=== PATIENT | male | born 1950 | race Caucasian/White ===

== ENCOUNTER 2020-09-10 08:16 | Outpatient (CLI) | payer OTHER, SELFPAY ==
[2020-09-10 09:24] LABS: Add Urine Microscopic? YES; Appearance Urine Clear (Clear); Bacteria Urine Trace /hpf; Bilirubin Urine Negative (Negative); Blood Urine Negative (Negative); Color Urine Yellow (Yellow); Glucose Urine UA Negative (Negative); Hyaline Casts Urine 20-29 /lpf; Ketones Urine Negative (Negative); Leukocyte Esterase Ur 1+ LEU/UL (Negative); Mucus Urine Rare /lpf; Nitrate Urine Negative (Negative); Protein Urine 2+ mg/dL (Negative); Specific Grav Ur 1.026 (1.001-1.035); Squamous Epithelial Cell Urine Moderate /hpf (Few)
[2020-09-10 09:33] LABS: Total Triiodothyronine (T3) 1.34 NG/ML (0.97-1.69)
[2020-09-10 09:47] LABS: Free T4 Free Thyroxine 0.78 ng/mL (0.78-2.19)
== END 2020-09-10 08:17 | disposition home or self-care (01) ==
PROVIDERS: PCP Family Medicine; Visit Provider Physician Assistant
DX: R79.89 Other specified abnormal findings of blood chemistry (principal); E03.9 Hypothyroidism, unspecified; R30.0 Dysuria
CPT/HCPCS: 36415; 81001; 84439; 84443; 84480; 87077; 87086; 87088

== ENCOUNTER 2020-09-27 10:34 | Outpatient (CLI) | payer OTHER, MEDICARE, SELFPAY | END 2020-09-27 10:35 | disposition home or self-care (01) | LOC: ANHCOVIDVC 10:34 | PROVIDERS: PCP Family Medicine | DX: Z23 Encounter for immunization (principal) | CPT/HCPCS: 0001A; 91300 ==

== ENCOUNTER 2020-10-18 10:28 | Outpatient (CLI) | payer OTHER, MEDICARE, SELFPAY | END 2020-10-18 10:29 | disposition home or self-care (01) | LOC: ANHCOVIDVC 10:29 | PROVIDERS: PCP Family Medicine | DX: Z23 Encounter for immunization (principal) | CPT/HCPCS: 0002A; 91300 ==

== ENCOUNTER 2020-11-26 12:05 | Outpatient (CLI) | payer OTHER, SELFPAY ==
[2020-11-27 14:27] LABS: Total Triiodothyronine (T3) 1.29 NG/ML (0.97-1.69)
== END 2020-11-26 12:06 | disposition home or self-care (01) ==
PROVIDERS: PCP Family Medicine; Visit Provider Physician Assistant
DX: E03.9 Hypothyroidism, unspecified (principal)
CPT/HCPCS: 36415; 84439; 84443; 84480

== ENCOUNTER 2021-04-11 11:53 | Outpatient (CLI) | payer OTHER, SELFPAY ==
[2021-04-11 12:09] LABS: Basophils Percent Auto 0.3 % (0.2-1.2); Eosinophils Absolute Auto 0.2 K/mm3 (0-0.3); Eosinophils Percent Auto 1.4 % (0-4.4); Hemoglobin 13.1 g/dL (14.0-18.0); Immature Granulocyte Absolute 0.04 K/mm3 (0.00-0.031); Immature Granulocyte Percent A 0.3 % (0-0.5); Lymphocytes Percent Auto 23.5 % (18.3-44.2); Mean Corpuscular HGB Conc 35.4 g/dl (32-36); Mean Corpuscular Hemoglobin 33.9 pg (26-34); Mean Corpuscular Volume 95.6 fl (80-100); Mean Platelet Volume 8.7 fl (7.4-10.4); Monocytes Absolute Auto 0.6 K/mm3 (0.1-0.6); Monocytes Percent Auto 5.5 % (2.6-8.5); Neutrophils Absolute Auto 7.9 K/mm3 (1.3-6.7); Platelet Count Result 194 k/mm3 (150-375); Red Blood Count 3.87 M/mm3 (4.6-6.20); Red Cell Distribution Width 13.2 % (11.5-14.5); White Blood Count 11.5 K/mm3 (4.5-10.0)
[2021-04-11 12:22] LABS: Alanine Aminotransferase 18 U/L (4-50); Albumin Level 4.4 g/dL (3.5-5.1); Alkaline Phosphatase 178 U/L (38-126); Anion Gap 13 mmol/L (8-16); Aspartate Amino Transferase 27 U/L (17-59); Bilirubin,Total 0.6 mg/dL (0.2-1.3); Blood Urea Nitrogen 10 mg/dL (9-20); Calcium 8.5 mg/dL (8.4-10.2); Carbon Dioxide 21 mmol/L (22-30); Chloride 102 mmol/L (98-107); Cholesterol 147 mg/dL (0-200); Estimated Glomerular Filt Rate > 60; Glucose 99 mg/dL (65-110); HDL Direct 40 mg/dL; Potassium 4.2 mmol/L (3.4-5.0); Sodium 136 mmol/L (137-145); Triglycerides 87 mg/dL (<150)
[2021-04-11 12:33] LABS: LDL Cholesterol Direct 87 mg/dL
[2021-04-11 12:53] LABS: Total Triiodothyronine (T3) 1.32 NG/ML (0.97-1.69)
[2021-04-11 13:34] LABS: Free T4 Free Thyroxine 1.32 ng/mL (0.78-2.19)
[2021-04-17 15:17] LABS: Vitamin D 1,25 (OH)2 Total 19 pg/mL (18-72); Vitamin D2 1,25 (OH)2 <8 pg/mL; Vitamin D3 1,25 (OH)2 19 pg/mL
== END 2021-04-11 11:54 | disposition home or self-care (01) ==
PROVIDERS: PCP Family Medicine; Visit Provider Physician Assistant
DX: E03.9 Hypothyroidism, unspecified (principal); E55.9 Vitamin D deficiency, unspecified; Z13.220 Encounter for screening for lipoid disorders; R03.0 Elevated blood-pressure reading, without diagnosis of hypertension
CPT/HCPCS: 36415; 80053; 80061; 82652; 84439; 84443; 84480; 85025

== ENCOUNTER 2021-05-09 11:19 | Outpatient (CLI) | payer OTHER, SELFPAY ==
--- NOTE | ~2021-05-09 | XR_ITS ---
EXAMINATION: XR chest 2V DATE: 05/09/2021 11:40 INDICATION: Personal history of nicotine dependence. Shortness of breath. TECHNIQUE: Frontal and lateral views of the chest were obtained. COMPARISON: None. FINDINGS: There are airspace opacities in the upper lung zones. No pleural effusion or pneumothorax. The heart size is normal. IMPRESSION: 1. Symmetric airspace opacities in the upper lung zones, most likely granulomatous disease. Consider noncontrast chest CT. Reviewed, dictated and finalized at location A. IMPRESSION: 1. Symmetric airspace opacities in the upper lung zones, most likely granulomat ous disease. Consider noncontrast chest CT.
== END 2021-05-09 11:20 | disposition home or self-care (01) ==
LOC: ANHIMG 11:22
PROVIDERS: PCP Family Medicine; Visit Provider Family Medicine
DX: R06.02 Shortness of breath (principal); Z87.891 Personal history of nicotine dependence; R91.8 Other nonspecific abnormal finding of lung field
CPT/HCPCS: 71046

== ENCOUNTER 2021-05-26 13:32 | Outpatient (CLI) | payer OTHER, SELFPAY ==
--- NOTE | ~2021-05-26 | CT_ITS ---
EXAMINATION: CT diagnostic chest wo con EXAM DATE: 05/26/2021 14:13 INDICATION: R93.89 - Abnormal findings on diagnostic imaging of other... Shortness of breath. TECHNIQUE: Spiral CT of the chest without contrast. Axial, coronal and sagittal images of the chest were reviewed. Coronal maximum intensity pixel images of chest reviewed. The dose-length product ( DLP) for this examination was 274.81 mGy-cm. The exposure was tailored according to patient size (au to mA exposure control), and iterative reconstruction (ASIR) was used as additional dose reduction te chnique. Correlation is made to chest x-ray 05/09/2021. FINDINGS: Biapical peripheral opacities, appearance consistent with chronic postinfectious residua. There are several known peripheral left upper lobe nodules up to about 6 mm also most likely postinfe ctious but optional one-year follow-up chest CT could be obtained. There is mild emphysema and hyperi nflation. No suspicious pulmonary nodules. There are no pleural or pericardial effusions. Tracheobronchial tree is patent. There is no med iastinal, hilar or axillary lymphadenopathy. There is no pneumothorax. Heart normal in size. Th ere is mild coronary arterial calcification, arterial sclerosis. Upper abdomen is unremarkable. Kwadwo kenney has diffuse idiopathic skeletal hyperostosis (DISH). IMPRESSION: 1. Biapical scarring. Couple of left upper lobe nodules probably postinfectious as well. Optional on e-year follow-up chest CT. 2. Mild emphysema and hyperinflation. Reviewed, dictated and finalized at location D. GER SOCIAL IMPRESSION: 1. Biapical scarring. Couple of left upper lobe nodules probably postinfectiou s as well. Optional one-year follow-up chest CT. 2. Mild emphysema and hyperinflation.
== END 2021-05-26 13:33 | disposition home or self-care (01) ==
PROVIDERS: PCP Family Medicine; Visit Provider Nurse Practitioner Gerontology
DX: R06.2 Wheezing (principal); R93.89 Abnormal findings on diagnostic imaging of other specified body structures; J43.9 Emphysema, unspecified
CPT/HCPCS: 71250

== ENCOUNTER 2021-06-09 10:01 | Outpatient (CLI) | payer OTHER, SELFPAY ==
--- NOTE | 2021-06-10 08:43 | WPDPFTINT ---
PFT Procedure Performed PFT Procedure Performed Spirometry with Pre/Post Bronchodilator Plethysmography (Lung Vol) Diffusing Cap (DLCO) Flow Vol Loop PFT Interpretation Lung volumes were measured with the body plethysmography method. Lung volumes are unremarkable. Spirometry showed diminished expiratory flow rates and a normal FEV1 to FVC ratio of 78%. Following administration of a bronchodilator there was no significant increase in the expiratory flow rates. Lung diffusion capacity is moderately reduced at 51% predicted. The flow volume loop is unremarkable. Impression: Nonspecific pattern. Moderately reduced lung diffusion capacity.
== END 2021-06-09 10:02 | disposition home or self-care (01) ==
PROVIDERS: PCP Family Medicine; Visit Provider Family Medicine
DX: R06.02 Shortness of breath (principal); Z87.891 Personal history of nicotine dependence; R91.8 Other nonspecific abnormal finding of lung field
CPT/HCPCS: 94060; 94726; 94729

== ENCOUNTER 2021-08-18 00:11 | Day surgery (SDC) | payer MEDICARE, SELFPAY ==
[2021-08-06 15:06] VITALS: BMI 29.3
[2021-08-18 10:32] VITALS: BP 139/88; PULSE 103; RESP 18; TEMP 36.5; O2SAT 99
[2021-08-18] MEDS: LACTATED RINGERS 1,000 ML 150 ML IV CONT (10:35)
--- NOTE | 2021-08-18 11:12 | WPDANESEPPF ---
Anes - Initial Pre Proc Eval Procedure: Operation Date: 08/18/21 11:30 Proposed Procedures p Colonoscopy - Remy See MD Date/Time: 08/18/21 11:12 Surgeon: Remy See MD Pre Op Diagnosis: positive cologuard Patient Data Age: 70 Gender: M Height: 1.73 m Weight: 81.3 kg Last Vital Signs Temp 36.5 C 08/18/21 10:32 Pulse 103 H 08/18/21 10:32 Resp 18 08/18/21 10:32 BP 139/88 08/18/21 10:32 Pulse Ox 99 08/18/21 10:32 Allergies Allergy/AdvReac Type Severity Reaction Status Date / Time No Known Allergies Allergy Verified 08/18/21 10:31 Home Medications Medication Instructions Recorded Confirmed Type fluticasone fur. 100 mcg-umeclid 1 inh INHALATION DAILY #60 ea 08/04/21 08/06/21 Rx 62.5 mcg-vilant 25 mcg inhalat.powder lisinopril 5 mg tablet 5 mg PO DAILY #90 tablet 08/04/21 08/06/21 Rx levothyroxine 50 mcg PO DAILY 08/18/21 08/18/21 History Patient hx anesthesia problems: none Family hx anesthesia problems: none Results Review: All pre-operative results and documents have been reviewed as part of the pre-operative evaluation. [facility] Past Medical History Medical History (Updated 08/18/21 @ 07:51 by Wagner Navas DO) Appendicitis Benign essential HTN History of tobacco abuse Hypothyroidism Spondylosis Surgical History Surgical History Hx of appendectomy Hx of knee surgery Family History Family History Father , 87yrs old Cardiac arrest Social History Social History (Updated 05/09/21 @ 10:32 by Anuja Jasso) Social History: single Smoking packs per day: 1 Smoking cigarettes per day: 20.0 Smoking status: Former smoker Tobacco type: cigarettes Second hand tobacco smoke exposure: Yes Smoking end date: 03/06/17 Alcohol intake: former Substance use: never Substance use type: does not use Living arrangements: alone Gender identity (if verbalized by the patient): Male Sexual Orientation (if Verbalized by the Patient): Straight or Heterosexual Spiritual care concerns: No Anes - Eval Final PreProcedure Day of Procedure 08/18/21 11:12 Patient weight: overweight Heart: regular rate and rhythm Lungs: clear to auscultation and normal air movement Airway: Mallampati scale class II Neurological: alert and oriented Last oral intake: >/= 8 hours ASA classification: III Emergent: no Anesthetic plan: proceed Anesthesia type and monitoring: general GIVS and standard monitoring Results Review: All pre-operative results and documents have been reviewed as part of the pre-operative evaluation. Informed Consent: The patient's anesthetic plan and its attendant risks and benefits were discussed with the patient/family/POA. Questions were solicited and answers provided to the satisfaction of the patient/family/POA.
--- NOTE | 2021-08-18 11:12 | PM.HPGS ---
History of Present Illness History of Present Illness Consent: Risks, benefits, and alternatives have been discussed and questions answered. Patient agrees to proceed with procedure. Chief complaint: positive cologuard Narrative: Gunner Casillas is a 70 year old male with recent + cologuard, last colonoscopy ~ 17 years ago. Review of Systems Constitutional: Constitutional: Denies headache(s) and Denies weakness Eyes: Eyes: Denies blurry vision ENT: Reports Normal hearing present, Denies headache(s) and Denies neck pain Cardiovascular: Cardiovascular: Denies chest pain and Denies dyspnea Respiratory: Respiratory: Denies dyspnea Gastrointestinal: Gastrointestinal: Reports no additional gastrointestinal complaints Genitourinary: Genitourinary: Denies dysuria Musculoskeletal: Musculoskeletal: Denies neck pain Integumentary/Breasts: Skin/Breast: Denies dry skin Neurologic: Reports Normal hearing present, Denies headache(s) and Denies weakness Psychiatric: Psychiatric: Denies anxiety Endocrine: Endocrine: Denies change in body appearance Hematologic/Lymphatic: Hematologic/Lymphatic: Denies easy bleeding Allergic/Immunologic: Allergic/Immunologic: Denies urticaria PMFSH Past Medical History Medical History (Updated 08/18/21 @ 07:51 by Wagner Navas, ) Appendicitis Benign essential HTN History of tobacco abuse Hypothyroidism Spondylosis Surgical History Surgical History Hx of appendectomy Hx of knee surgery Family History Family History Father , 87yrs old Cardiac arrest Social History Social History (Updated 05/09/21 @ 10:32 by Anuja Jasso) Social History: single Smoking packs per day: 1 Smoking cigarettes per day: 20.0 Smoking status: Former smoker Tobacco type: cigarettes Second hand tobacco smoke exposure: Yes Smoking end date: 03/06/17 Alcohol intake: former Substance use: never Substance use type: does not use Living arrangements: alone Gender identity (if verbalized by the patient): Male Sexual Orientation (if Verbalized by the Patient): Straight or Heterosexual Spiritual care concerns: No Meds Home Medications and Allergies Home Medications Medication Instructions Recorded Confirmed Type fluticasone fur. 100 mcg-umeclid 1 inh INHALATION DAILY #60 ea 08/04/21 08/06/21 Rx 62.5 mcg-vilant 25 mcg inhalat.powder lisinopril 5 mg tablet 5 mg PO DAILY #90 tablet 08/04/21 08/06/21 Rx levothyroxine 50 mcg PO DAILY 08/18/21 08/18/21 History Allergies Allergy/AdvReac Type Severity Reaction Status Date / Time No Known Allergies Allergy Verified 08/18/21 10:31 Vital Signs Vital Signs - 24 hr 08/18/21 10:32 Temperature 97.7 F Pulse Rate 103 H Respiratory Rate 18 Blood Pressure 139/88 Pulse Oximetry 99 Exam Const: General: comfortable and no acute distress HENMT: General nose exam: Normal nares present Eyes: General: appearance normal, both eyes and all related structures Neck: Neck: no JVD Resp: Auscultation: clear to auscultation bilaterally Cardio: Rate: regular rate Rhythm: regular rhythm GI: Inspection: non-distended GI Palp: Yes Soft to palpation Skin: General skin exam: normal color Neuro: General: gait normal Speech: normal speech Extrem: General: normal to inspection Psych: Mental Status: mental status grossly normal Assessment and Plan Assessment and plan (1) Positive colorectal cancer screening using Cologuard test: Code(s): R19.5 - Other fecal abnormalities Status: Acute Assessment and Plan: colonoscopy
[2021-08-18 11:34] VITALS: BP 91/53; PULSE 67; RESP 15; O2SAT 99
[2021-08-18 11:44] VITALS: BP 102/57; PULSE 66; RESP 19; O2SAT 99
[2021-08-18 11:54] VITALS: BP 110/58; PULSE 71; RESP 14; O2SAT 100
== END 2021-08-18 12:14 | disposition home or self-care (01) ==
PROVIDERS: PCP Family Medicine; Visit Provider Internal Medicine Gastroenterology
PROC: 0DJD8ZZ Inspection of Lower Intestinal Tract, Via Natural or Artificial Opening Endoscopic (ICD-10-PCS; CPT 45378; principal; 2021-08-18 11:30)
DX: R19.5 Other fecal abnormalities (principal); Q27.33 Arteriovenous malformation of digestive system vessel; K64.8 Other hemorrhoids; D12.4 Benign neoplasm of descending colon; I10 Essential (primary) hypertension; E03.9 Hypothyroidism, unspecified; Z87.891 Personal history of nicotine dependence
CPT/HCPCS: 45385; 88305; J2704; J7120

== ENCOUNTER 2022-08-20 10:04 | Inpatient (IN) | payer MEDICARE, SELFPAY ==
[2022-08-20] VITALS (32 sets, daily range): BP systolic 98–115; BP diastolic 42–85; PULSE 74–97; RESP 12–26; TEMP 36.4–36.8; O2SAT 83–100; BMI 22.0
--- NOTE | ~2022-08-20 | CT_ITS ---
EXAMINATION: CT brain wo con DATE: 08/20/2022 12:36 INDICATION: Altered mental status. TECHNIQUE: Computed tomography (CT) of the head was performed without intravenous contrast. The mA wa s adjusted according to patient size. Iterative reconstruction technique was employed. The dose-lengt h product was 681.00 mGy-cm. COMPARISON: None FINDINGS: There is no intracranial hemorrhage, acute infarction, or abnormal intracranial mass lesion . The ventricles are normal in size. There is mild mucosal thickening in the paranasal sinuses. There are likely changes of ocular lens replacement surgeries. The mastoid air cells are normal. IMPRESSION: 1. Normal brain. Reviewed, dictated and finalized at location A. NETWORK TECHNICIAN IMPRESSION: 1. Normal brain.
--- NOTE | ~2022-08-20 | XR_ITS ---
EXAMINATION: XR chest 2V DATE: 08/20/2022 11:15 INDICATION: Shortness of breath TECHNIQUE: AP and lateral views of the chest are obtained. COMPARISON: 05/09/2021 FINDINGS: There are airspace opacities and volume loss involving the upper lobes. Patchy airspace opa cities are present in the left midlung zone and lung bases. No pleural effusion or pneumothorax. The cardiomediastinal silhouette is normal. There is severe thoracic spondylosis. Multiple gas-filled loo ps of bowel are noted. IMPRESSION: 1. Scarring and volume loss of the lung apices, likely infection or chronic lung disease. 2. Airspace opacities of the lung bases and left midlung zone, consistent with atelectasis versus pne umonia. Reviewed, dictated and finalized at location L. MBLING MACHINE OPERATOR IMPRESSION: 1. Scarring and volume loss of the lung apices, likely infection or chronic april g disease. 2. Airspace opacities of the lung bases and left midlung zone, consistent with atelectasis versus pneumonia.
--- NOTE | 2022-08-20 10:17 | ECG_ITS ---
Measurements Intervals [place] Rate: 85 P: GA: 0 QRS: 38 QRSD: 98 T: 43 QT: 395 QTc: 471 Interpretive Statements SINUS RHYTHM NONSPECIFIC ST & T-WAVE ABNORMALITY BASELINE ARTIFACT PRESENT NO PREVIOUS ECG AVAILABLE FOR COMPARISON Electronically Signed On 08-20-2022 15:43:51 [employer]ARM [employer] by Gaye Amezquita M.D.
[2022-08-20 10:27] LABS: Basophils Percent Auto 0.2 % (0.2-1.2); Eosinophils Percent Auto 0.5 % (0-4.4); Hematocrit 29.2 % (42.0-52.0); Hemoglobin 10.7 g/dL (14.0-18.0); Immature Granulocyte Absolute 0.04 K/mm3 (0.00-0.031); Immature Granulocyte Percent A 0.5 % (0-0.5); Lymphocytes Absolute Auto 0.87 K/mm3 (0.9-3.2); Mean Corpuscular HGB Conc 36.6 g/dl (32-36); Mean Corpuscular Hemoglobin 30.7 pg (26-34); Mean Corpuscular Volume 83.7 fl (80-100); Mean Platelet Volume 8.3 fl (7.4-10.4); Monocytes Absolute Auto 0.4 K/mm3 (0.1-0.6); Monocytes Percent Auto 5.1 % (2.6-8.5); Neutrophils Absolute Auto 7.3 K/mm3 (1.3-6.7); Neutrophils Percent Auto 83.7 % (45.5-73.1); Platelet Count Result 169 k/mm3 (150-375); Red Blood Count 3.49 M/mm3 (4.6-6.20); Red Cell Distribution Width 13.3 % (11.5-14.5); White Blood Count 8.7 K/mm3 (4.5-10.0)
[2022-08-20 10:46] LABS: Alanine Aminotransferase 17 U/L (6-50); Albumin Level 3.8 g/dL (3.5-5.1); Alkaline Phosphatase 123 U/L (38-126); Anion Gap 8 mmol/L (8-16); Aspartate Amino Transferase 39 U/L (17-59); Bilirubin,Total 0.8 mg/dL (0.2-1.3); Blood Urea Nitrogen 9 mg/dL (9-20); Calcium 8.1 mg/dL (8.4-10.2); Carbon Dioxide 27 mmol/L (22-30); Chloride 75 mmol/L (98-107); Estimated CRCL calculation 93 ml/min; Estimated Glomerular Filt Rate > 60; Glucose 96 mg/dL (65-110); Sodium 110 mmol/L (137-145)
--- NOTE | 2022-08-20 10:57 | ED.SOB ---
HPI - SOB/Dyspnea General Chief Complaint: Shortness of Breath/Dyspnea <Danuta Murrell PA-C - Last Filed: 08/20/22 18:13> Stated Complaint: dehydration <ERICKSON Parsons Last Filed: 08/20/22 18:13> Time Seen by Provider: 08/20/22 10:22 <ERICKSON Parsons Last Filed: 08/20/22 18:13> Source: patient and family <ERICKSON Parsons Last Filed: 08/20/22 18:13> Mode of arrival: EMS <ERICKSON Parsons Last Filed: 08/20/22 18:13> Limitations: no limitations <ERICKSON Parsons Last Filed: 08/20/22 18:13> History of Present Illness HPI Narrative: Patient is a 71-year-old male who presents to the ED via EMS with report of weakness, decreased appetite. Patient reports he had been living at home by himself up until recently. He states he has been very weak and does not get up and do much. He does not walk around much. He states he has developed bedsores from sitting. He states he has not been eating as he takes a couple of bites and feels full. He has felt nauseous at times. He also reports feeling short of breath with any exertion. Denies chest pain, abdominal pain, vomiting, fever, cough, cold symptoms. Patient's son at bedside assisted in providing information. He states patient essentially shut everyone out of his life and home and refused anyone to help him, up until 2 weeks ago when he contacted his son and said he needed help. He has been living with his son for the last 2 weeks. He has been drinking water as they have been pushing fluids, but he has not eaten much at all. Son does report patient has been increasingly confused over the last couple of days. He has seemed dazed and out of it. <ERICKSON Parsons Last Filed: 08/20/22 18:13> Related Data Allergies/Adverse Reactions: Allergies Allergy/AdvReac Type Severity Reaction Status Date / Time No Known Allergies Allergy Verified 08/18/21 10:31 <Danuta Murrell PA-C - Last Filed: 08/20/22 18:13> Review of Systems Review of Systems: CONSTITUTIONAL: Denies fever, chills, or sweats. ENT: Denies rhinorrhea, congestion, sore throat. CARDIOVASCULAR: Denies chest pain. RESPIRATORY: See HPI. GASTROINTESTINAL: See HPI. GENITOURINARY: Denies dysuria or hematuria. SKIN: See HPI. MUSCULOSKELETAL: Denies back pain, joint pain, or myalgia. NEUROLOGIC: See HPI. <Danuta Murrell PA-C - Last Filed: 08/20/22 18:13> All systems reviewed & are unremarkable except as noted in HPI and below <Danuta Murrell PA-C - Last Filed: 08/20/22 18:13> [facility] Past Medical History Medical History: Medical History Appendicitis Benign essential HTN History of tobacco abuse Hypothyroidism Spondylosis <Danuta Murrell PA-C - Last Filed: 08/20/22 18:13> Surgical History Surgical History: Surgical History Hx of appendectomy Hx of knee surgery <Danuta Murrell PA-C - Last Filed: 08/20/22 18:13> Family History Family History: Family History Father , 87yrs old Cardiac arrest <Danuta Murrell PA-C - Last Filed: 08/20/22 18:13> Social History Social History: Social History Social History: single Smoking packs per day: 1 Smoking cigarettes per day: 20.0 Smoking status: Former smoker Tobacco type: cigarettes Second hand tobacco smoke exposure: Yes Smoking end date: 08/20/09 Additional smoking assessment comments: Smoked here and there per son, maybe a couple a day Alcohol intake: never Substance use: never Substance use type: does not use Lack of Transportation: No Lack of Food: Never True Current Housing: I Have Housing Concerned About Future
[2022-08-20 11:07] LABS: NT Pro B Type Natriuretic Pept 584 pg/mL (19.9-100); Troponin I < 0.012 ng/mL (0.000-0.034)
[2022-08-20 11:17] LABS: Influenza A QL RT-PCR Negative (Negative); Influenza B QL RT-PCR Negative (Negative); SARS-CoV-2 RNA PCR Negative
[2022-08-20 11:19] LABS: Creatine Kinase 61 U/L (55-170)
[2022-08-20 12:27] LABS: Magnesium 1.6 mg/dL (1.6-2.3)
[2022-08-20] MEDS: SODIUM CHLORIDE 3% 100 ML 30 ML IV CONT (12:52)
[2022-08-20 14:47] LABS: Appearance Urine Clear (Clear); Bilirubin Urine 1+ (Negative); Blood Urine Trace-lysed (Negative); Color Urine Yellow (Yellow); Glucose Urine UA Negative (Negative); Ketones Urine 3+ mg/dL (Negative); Leukocyte Esterase Ur Negative LEU/UL (Negative); Nitrate Urine Negative (Negative); Protein Urine Trace mg/dL (Negative); Urobilinogen Urine 0.2 mg/dL (<2.0)
[2022-08-20 14:53] LABS: Bacteria Urine Trace /hpf; RBC Urine 0-2 /hpf (0-2); Squamous Epithelial Cell Urine Rare /hpf (Few); WBC Urine 0-3 /hpf
[2022-08-20 14:57] LABS: Add Urine Microscopic? YES
[2022-08-20 15:02] LABS: Anion Gap 7 mmol/L (8-16); Blood Urea Nitrogen 8 mg/dL (9-20); Calcium 7.8 mg/dL (8.4-10.2); Carbon Dioxide 28 mmol/L (22-30); Chloride 79 mmol/L (98-107); Estimated CRCL calculation 93 ml/min; Estimated Glomerular Filt Rate > 60; Glucose 80 mg/dL (65-110); Potassium 4.1 mmol/L (3.4-5.0); Sodium 114 mmol/L (137-145)
--- NOTE | 2022-08-20 15:13 | PC.NURSE ---
RAGHAV SHARPE TO PAUSE SODIUM 3%
--- NOTE | 2022-08-20 15:25 | PM.CNNEP ---
Assessment and Plan Assessment and plan (1) Hyponatremia: Code(s): E87.1 - Hypo-osmolality and hyponatremia Status: Acute Assessment and Plan: unclear how acute or chronic (assuming acute) probably hypovolemic in nature given history s/p 3% saline with rise in sodium as noted -- off 3% saline at this time check urine electrolytes, TSH, cortisol, serum/urine osmo, SPEP and UPEP will resume appropriate IVFs once pending labs available CXR results noted will to ascertain if he is up to date on malignancy screening follow trend of serial sodium levels Long extensive discussion (greater than 20 minutes) with the patient with regard to the seriousness of his severe hyponatremia, the need for close and frequent monitoring of his sodium level, and the interventions to date an what will likely need to be done to treat this underlying disorder. I am not entirely clear the patient fully understood the gravity of the situation. Will continue to follow. History of Present Illness Reason for Consult Consult date: 08/20/22 Reason for consult: hyponatremia Chief Complaint Chief complaint: severe hyponatremia,failure to thrive,confusion History of Present Illness Narrative: The patient is a 71-year-old male with a past medical history as outlined below who presented to [facility] Emergency room via EMS for further evaluation of altered mental status as well as weakness. Apparently, a couple of weeks ago, the patient called his son for assistance as he noted that he was unable to take care of himself. When his son came to provide assistance, it became clear that the patient had been staying in his living room for indefinite period of time as he had gotten so weak and deconditioned that he was unable to ambulate. He apparently has lost a significant amount of weight and his oral nutrition is almost non-existent. For the last 2 weeks, he has been staying with his son an effort to build up his strength with adequate oral nutrition and ambulation. Unfortunately, his overall condition has not really changed as he has been almost bed-bound since he moved in with his son. As his overall condition seems to be deteriorating, his family urged him to come to the emergency room for further assessment which she eventually did today. Workup and evaluation in the emergency room demonstrated the patient to be hemodynamically stable although his blood pressure was on the lower end of normal. Routine blood test demonstrated mild anemia profound hyponatremia with a sodium of 110, normal renal function, and otherwise unremarkable white blood cell count. CT scan the brain was unremarkable and his chest x-ray did not demonstrate any type of lung disease. Given his confusion weakness and the concern that his hyponatremia was the cause of this, 3% saline was initiated in the emergency room which did improve his sodium level up to 115 but given the rapid rise, the 3% saline was discontinued. He was subsequently admitted to the hospital for further evaluation and therapy. Renal consultation was requested due to his severe / profound hyponatremia. Unfortunately, I have no recent labs to compare to to assess how acute or chronic this condition is although the last labs available here at [facility] show his sodium level to be well within normal limits in 2020. Given the history of poor oral intake in conjunction with ongoing free water intake as his only real source of nutrition / hydration, the suspicion is that his hyponatremia is due to volume depletion / hypovolemia. The fact that he had such a robust response to 3% saline would argue in favor of this as well. He is not taking any medications at this time so the possibility of a medication side effects seems unlikely. Although reportedly he was confused on presentation, his mentation seems to be relatively stable at the time of my visit but I am unclear what his baseline mentation is.
--- NOTE | 2022-08-20 16:00 | PM.IMHP ---
H&P: HPI History of Present Illness Date/Time: 08/20/22 16:00 Chief Complaint: Weakness. Narrative: This is a pleasant 71-year-old male with history of hypertension and hypothyroidism (no longer medication) who presented to the emergency department via EMS for evaluation of weakness. The patient and his son provided the following history. The patient lives in his own home but a couple of weeks ago he called his son stating that he needed help as he was no longer to care for himself. It came to light that the patient has been essentially staying in his living room as he has gotten so weak and deconditioned that he cannot ambulate very far. He has lost weight and does not seem to be eating much. He has been staying with his son since that time and he spends a majority of his day in bed though he is able to stand for a brief period of time and pivot to a bedside commode. They encouraged him to come in today as he continues to have no appetite, complains of nausea, and they think he has even been a bit confused. He has not had fever, chills, or sweats. He denies recent cold and flu symptoms. No sick contacts. No chest pain, pleuritic pain, palpitations, resting shortness of breath, or cough. Appetite has been poor with nausea but he denies vomiting and diarrhea. He has not been eating much in the way of fluid but has been trying to drink 64 oz of water a day and it sounds like that is about all he has in a day. He has not had a good bowel movement for over 1 week. He was afebrile on arrival to the ED. Blood pressures have been stable at the low end of normal. Labs were significant for mild normocytic anemia, profound hyponatremia with a sodium of 110, chloride 75, BUN 9, creatinine 0.60, magnesium 1.6. Brain CT was unremarkable. He was started on 3% normal saline in the emergency department due to his confusion and his sodium improved to 115 and that has since been discontinued. Review of Systems Review of Systems: Twelve systems were reviewed. No fever, chills, or sweats. No cough. He denies abdominal pain. No epigastric pain. No dysphagia. He has not noticed any blood in the stool or urine. No falls. No head trauma. No focal weakness or paresthesias. No facial droop. Except as documented, all other systems were reviewed and are negative. [facility] Past Medical History Medical History (Updated 08/20/22 @ 22:44 by Samara Gonzalez PA-C) Benign essential HTN History of tobacco abuse Hypertension Hypothyroidism Spondylosis Surgical History Surgical History (Updated 08/20/22 @ 22:37 by Samara Gonzalez PA-C) History of appendectomy History of arthroscopic knee surgery Family History Family History Father , 87yrs old Cardiac arrest Social History Social History (Updated 08/20/22 @ 22:37 by Samara Gonzalez PA-C) Social History: Surrogate medical decision maker: Eugene Casillas, son. Code status: Full code. Smoking packs per day: 1 Smoking cigarettes per day: 20.0 Smoking status: Former smoker Tobacco type: cigarettes Second hand tobacco smoke exposure: Yes Smoking end date: 08/20/09 Additional smoking assessment comments: Smoked here and there per son, maybe a couple a day Alcohol intake: never Substance use: never Substance use type: does not use Lack of Transportation: No Lack of Food: Never True Current Housing: I Have Housing Concerned About Future Housing: No Difficulty Paying Gas/Electric Bills: No Difficulty Paying for Meds: No Currently Unemployed: No Education: High School Diploma/GED Difficulty w/ Childcare or Family Care: No Additional living arrangements comments: Currently living with son Eugene. Occupation/Education: retired Additional occupation/education comments: Retired news agent. Spiritual care concerns: No Meds Home Medications and Allergies Home Medications Medication Instruct
--- NOTE | 2022-08-20 16:02 | ADMGEN ---
This patient, Gunner Casillas, was admitted to IMU Room 202-01. Patient/family oriented to hospital policies and general routines including ID bracelet, bed and alarms, visiting hours, pain management, procedures, bathroom and other care routines, personal items, smoking policy, room service/diet, and visiting hours. Information on how to activate the Rapid Response Team has been discussed. Patient/Family are encouraged to report perceived risks to care and to ask questions if they do not understand what they are told or what they should do.
[2022-08-20 19:43] LABS: Creatinine Urine 23.1 mg/dL
[2022-08-20 19:44] LABS: Creatinine Urine 23.3 mg/dL; Total Protein Urine Random 23 mg/dL; Ur Ttl Prot Creatinine Ratio 0.99 mg/mg (0-0.20); Urea Random Urine 188 MG/DL
[2022-08-20 20:01] LABS: Sodium Urine Random < 5 meq/L
[2022-08-20 20:02] LABS: Sodium Urine Random < 5 meq/L
[2022-08-20 22:26] LABS: Anion Gap 7 mmol/L (8-16); Blood Urea Nitrogen 6 mg/dL (9-20); Calcium 7.7 mg/dL (8.4-10.2); Carbon Dioxide 27 mmol/L (22-30); Chloride 81 mmol/L (98-107); Estimated CRCL calculation 93 ml/min; Estimated Glomerular Filt Rate > 60; Glucose 74 mg/dL (65-110); Sodium 115 mmol/L (137-145)
[2022-08-20] MEDS: SODIUM CHLORIDE 0.9% IV 1,000 ML 30 ML IV CONT (23:31)
[2022-08-21] VITALS (21 sets, daily range): BP systolic 78–100; BP diastolic 39–54; PULSE 79–106; RESP 16–20; TEMP 35.8–36.7; O2SAT 98–100; BMI 22.0
[2022-08-21 04:52] LABS: Hematocrit 26.3 % (42.0-52.0); Hemoglobin 9.4 g/dL (14.0-18.0); Mean Corpuscular HGB Conc 35.7 g/dl (32-36); Mean Corpuscular Hemoglobin 29.8 pg (26-34); Mean Corpuscular Volume 83.5 fl (80-100); Mean Platelet Volume 8.4 fl (7.4-10.4); Platelet Count Result 154 k/mm3 (150-375); Red Blood Count 3.15 M/mm3 (4.6-6.20); Red Cell Distribution Width 13.3 % (11.5-14.5); White Blood Count 6.4 K/mm3 (4.5-10.0)
[2022-08-21 05:05] LABS: Anion Gap 6 mmol/L (8-16); Blood Urea Nitrogen 6 mg/dL (9-20); Calcium 7.7 mg/dL (8.4-10.2); Carbon Dioxide 29 mmol/L (22-30); Chloride 81 mmol/L (98-107); Creatine Kinase 31 U/L (55-170); Estimated CRCL calculation 93 ml/min; Estimated Glomerular Filt Rate > 60; Glucose 72 mg/dL (65-110); Magnesium 1.9 mg/dL (1.6-2.3); Potassium 3.8 mmol/L (3.4-5.0); Sodium 116 mmol/L (137-145)
[2022-08-21 05:15] LABS: CRP 6.8 mg/dL (<1.0)
[2022-08-21 08:53] LABS: Erythrocyte Sedimentation Rate > 140 mm/hr (0-20)
[2022-08-21 08:58] LABS: Sodium 115 mmol/L (137-145)
--- NOTE | 2022-08-21 09:33 | PM.IMPN ---
Progress Note: A&P Assessment and Plan (1) Hyponatremia: Code(s): E87.1 - Hypo-osmolality and hyponatremia Status: Acute Assessment and Plan: Appreciate nephrology consultation, continue normal saline, improving (2) Normocytic anemia: Code(s): D64.9 - Anemia, unspecified Status: Acute Assessment and Plan: Stable, monitor (3) Adult failure to thrive: Code(s): R62.7 - Adult failure to thrive Status: Acute Assessment and Plan: Good p.o. intake while here, encourage continued p.o. intake (4) Malnutrition: Code(s): E46 - Unspecified protein-calorie malnutrition Status: Acute Assessment and Plan: As above (5) Abnormal chest x-ray: Code(s): R93.89 - Abnormal findings on diagnostic imaging of other specified body structures Status: Acute Assessment and Plan: Do not suspect infection, abnormalities likely chronic noted on chest x-ray Plan DVT prophylaxis with SCDs GI prophylaxis not indicated Code status full code Subjective Date/time seen: 08/21/22 09:33 Interval history: Patient states he feels much better than when he came in, a lot stronger. No overnight events noted. No chest pain or shortness of breath. No nausea, vomiting or diarrhea. Review of Systems Review of Systems: 12 point review of systems was assessed and was negative except as noted in the HPI Exam Narrative: General: No acute distress, alert and oriented per baseline HEENT: Atraumatic, normocephalic, mucous membranes moist CV: Regular rate and rhythm, S1, S2, soft systolic ejection murmur, +2/6 Lungs: Clear to auscultation bilaterally, no rales or crackles noted, no wheezes, good air entry Abdomen: Soft, nontender, nondistended Extremities: Normal to inspection Skin: No rashes noted, no lesions or wounds seen Psych: Euthymic, normal affect Objective Data Vital Signs Vital Signs: Vital Signs - 24 hr 08/20/22 10:07 08/20/22 10:14 08/20/22 10:14 Temperature Pulse Rate 96 82 Respiratory Rate 18 Blood Pressure 115/85 Pulse Oximetry 100 100 Oxygen Delivery Room Air Room Air 08/20/22 10:12 08/20/22 10:13 08/20/22 10:15 Temperature Pulse Rate 97 83 83 Respiratory Rate 22 H 20 24 H Blood Pressure 115/85 Pulse Oximetry 83 L 100 100 Oxygen Delivery 08/20/22 10:16 08/20/22 10:30 08/20/22 10:45 Temperature Pulse Rate 92 85 78 Respiratory Rate 26 H 16 18 Blood Pressure 114/66 Pulse Oximetry 100 100 99 Oxygen Delivery 08/20/22 10:46 08/20/22 11:17 08/20/22 11:30 Temperature Pulse Rate 80 77 Respiratory Rate 14 13 Blood Pressure 106/60 Pulse Oximetry 100 100 Oxygen Delivery 08/20/22 11:45 08/20/22 12:00 08/20/22 12:15 Temperature Pulse Rate 80 78 82 Respiratory Rate 12 13 15 Blood Pressure Pulse Oximetry 100 100 100 Oxygen Delivery 08/20/22 12:36 08/20/22 12:45 08/20/22 13:00 Temperature Pulse Rate 79 81 78 Respiratory Rate 14 15 16 Blood Pressure Pulse Oximetry 100 100 100 Oxygen Delivery 08/20/22 13:15 08/20/22 13:30 08/20/22 13:45 Temperature Pulse Rate 79 79 76 Respiratory Rate 14 13 15 Blood Pressure Pulse Oximetry 100 100 100 Oxygen Delivery 08/20/22 14:00 08/20/22 14:15 08/20/22 14:30 Temperature Pulse Rate 81 85 90 Respiratory Rate 12 18 14 Blood Pressure 104/62 Pulse Oximetry 100 99 Oxygen Delivery 08/20/22 14:45 08/20/22 15:00 08/20/22 15:15 Temperature Pulse Rate 81 79 77 Respiratory Rate 17 17 15 Blood Pressure 98/54 L Pulse Oximetry 100 99 100 Oxygen Delivery 08/20/22 16:05 08/20/22 18:00 08/20/22 20:25 Temperature 97.9 F 98.3 F Pulse Rate 87 79 74 Respiratory Rate 22 H 20 Blood Pressure 106/42 L 98/53 L Pulse Oximetry 100 99 Oxygen Delivery 08/20/22 20:00 08/20/22 20:00 08/20/22 22:00 Temperature Pulse Rate 74 74 80 Respiratory Rate 20 Blood Pressure
--- NOTE | 2022-08-21 11:17 | PM.PNNEP ---
Progress Note: A&P Assessment and Plan (1) Hyponatremia: Code(s): E87.1 - Hypo-osmolality and hyponatremia Status: Acute Assessment and Plan: unclear how acute or chronic (assuming acute) probably hypovolemic in nature given history evaluation to date: urine electrolytes prerenal TSH and cortisol okay SPEP/UPEP and serum/urine osmo pending head CT noted CXR results reviewed s/p 3% saline with rise in sodium as noted -- off 3% saline at this time goal rate of correction is 6 - 8mmol/L in the first 24 hours -- this has been achieved currently on low dose normal saline IVFs will to ascertain if he is up to date on malignancy screening follow trend of serial sodium levels Will continue to follow. Subjective Date/time seen: 08/21/22 11:17 Once urine testing was reviewed, he was started on gentle normal saline IVFs overnight (urine electrolytes prerenal) and his sodium has slowly improved with this intervention; his mentation seems a bit better at this time as well. Exam Narrative: General: elderly frail appearing male who appears older than stated age Heart: normal S1 and S2; no rub Lungs: clear to auscultation Abdomen: soft, nontender, nondistended, positive bowel sounds Extremities: no cyanosis or clubbing; no edema Skin: warm and dry Objective Data Vital Signs Vital Signs: Vital Signs Temp Pulse Resp BP Pulse Ox O2 Del Method 08/21/22 07:54 97.6 F 84 20 94/47 L 100 08/21/22 06:00 88 08/21/22 05:08 97.6 F 83 20 94/54 L 99 08/21/22 04:00 85 20 99 Room Air 08/21/22 04:00 82 08/21/22 02:00 85 08/21/22 00:00 79 20 99 Room Air 08/21/22 00:00 79 08/20/22 23:29 97.6 F 89 20 101/62 99 08/20/22 22:00 80 08/20/22 20:00 74 20 99 Room Air 08/20/22 20:00 74 08/20/22 20:25 98.3 F 74 20 98/53 L 99 08/20/22 18:00 79 08/20/22 16:05 97.9 F 87 22 H 106/42 L 100 08/20/22 15:15 77 15 98/54 L 100 08/20/22 15:00 79 17 99 08/20/22 14:45 81 17 100 08/20/22 14:30 90 14 08/20/22 14:15 85 18 104/62 99 08/20/22 14:00 81 12 100 08/20/22 13:45 76 15 100 08/20/22 13:30 79 13 100 08/20/22 13:15 79 14 100 08/20/22 13:00 78 16 100 08/20/22 12:45 81 15 100 08/20/22 12:36 79 14 100 08/20/22 12:15 82 15 100 08/20/22 12:00 78 13 100 08/20/22 11:45 80 12 100 08/20/22 11:30 77 13 100 08/20/22 11:17 80 14 100 Intake/Output Intake/Output: Intake & Output 08/18/22 08/19/22 08/20/22 08/21/22 23:59 23:59 23:59 23:59 Intake Total 150 Output Total 400 300 Balance -400 -150 Meds/Results Medications: Active Medications Generic Name Dose Route Start Last Admin Trade Name Freq PRN Reason Stop Dose Admin Sodium Chloride 1,000 mls @ 50 mls/hr 08/20/22 23:04 08/20/22 23:31 Normal Saline Iv IV CONT 08/21/22 19:03 30 mls/hr .Q20H STA Administration Miconazole Nitrate 1 applic 08/21/22 09:00 Miconazole 2% Antifungal Ointment 56 Gm TOPICAL Q12HR BIN Radiology Results: ITS Impressions Chest X-Ray 08/20/22 11:25 IMPRESSION: 1. Scarring and volume loss of the lung apices, likely infection or chronic lung disease. 2. Airspace opacities of the lung bases and left midlung zone, consistent with atelectasis versus pneumonia. Head CT 08/20/22 12:41 IMPRESSION: 1. Normal brain. Labs Labs: Laboratory Tests 08/21/22 04:20 08/21/22 04:20 Sodium 116 L* Potassium 3.8 Chloride 81 L Carbon Dioxide 29 Anion Gap 6 L BUN 6 L Creatinine 0.60 L Estim Creat Clear Calc 93 Estimated GFR > 60 Glucose 72 Calcium 7.7 L Magnesium 1.9 Total Creatine Kinase 31 L 02/10/23 08:14 Sodium 115 L*
[2022-08-21 14:32] LABS: Sodium 118 mmol/L (137-145)
[2022-08-21 18:21] LABS: Sodium 120 mmol/L (137-145)
[2022-08-21 23:05] LABS: Sodium 121 mmol/L (137-145)
[2022-08-21] MEDS: SODIUM CHLORIDE 0.9% IV 1,000 ML 50 ML IV CONT (23:22)
[2022-08-22] VITALS (15 sets, daily range): BP systolic 87–115; BP diastolic 47–60; PULSE 68–105; RESP 16–24; TEMP 36.4–36.7; O2SAT 99–100
[2022-08-22 04:58] LABS: Basophils Percent Auto 0.4 % (0.2-1.2); Eosinophils Absolute Auto 0.1 K/mm3 (0-0.3); Eosinophils Percent Auto 2.1 % (0-4.4); Hematocrit 24.4 % (42.0-52.0); Hemoglobin 8.6 g/dL (14.0-18.0); Immature Granulocyte Absolute 0.02 K/mm3 (0.00-0.031); Immature Granulocyte Percent A 0.4 % (0-0.5); Lymphocytes Absolute Auto 1.05 K/mm3 (0.9-3.2); Lymphocytes Percent Auto 18.8 % (18.3-44.2); Mean Corpuscular HGB Conc 35.2 g/dl (32-36); Mean Corpuscular Hemoglobin 29.8 pg (26-34); Mean Corpuscular Volume 84.4 fl (80-100); Mean Platelet Volume 7.8 fl (7.4-10.4); Monocytes Absolute Auto 0.6 K/mm3 (0.1-0.6); Neutrophils Absolute Auto 3.8 K/mm3 (1.3-6.7); Neutrophils Percent Auto 68.3 % (45.5-73.1); Platelet Count Result 121 k/mm3 (150-375); Red Blood Count 2.89 M/mm3 (4.6-6.20); Red Cell Distribution Width 13.6 % (11.5-14.5); White Blood Count 5.6 K/mm3 (4.5-10.0)
[2022-08-22 05:49] LABS: Alanine Aminotransferase 17 U/L (6-50); Albumin Level 2.9 g/dL (3.5-5.1); Alkaline Phosphatase 102 U/L (38-126); Anion Gap 2 mmol/L (8-16); Aspartate Amino Transferase 39 U/L (17-59); Bilirubin,Total 0.5 mg/dL (0.2-1.3); Blood Urea Nitrogen 5 mg/dL (9-20); Calcium 7.2 mg/dL (8.4-10.2); Carbon Dioxide 32 mmol/L (22-30); Chloride 86 mmol/L (98-107); Estimated CRCL calculation 93 ml/min; Estimated Glomerular Filt Rate > 60; Glucose 90 mg/dL (65-110); Potassium 3.1 mmol/L (3.4-5.0); Sodium 120 mmol/L (137-145)
--- NOTE | 2022-08-22 08:44 | PM.IMPN ---
Progress Note: A&P Assessment and Plan (1) Hyponatremia: Code(s): E87.1 - Hypo-osmolality and hyponatremia Status: Acute Assessment and Plan: Appreciate nephrology consultation, continue normal saline, slowly but appropriately improving, continue normal saline at 50 mL an hour (2) Normocytic anemia: Code(s): D64.9 - Anemia, unspecified Status: Acute Assessment and Plan: Worsening, may be dilutional, presented with hemoglobin of 10.7, now down to 8.6, continue to monitor Check iron studies, B12, folate, stool occult blood (3) Adult failure to thrive: Code(s): R62.7 - Adult failure to thrive Status: Acute Assessment and Plan: Good p.o. intake while here, encourage continued p.o. intake (4) Malnutrition: Code(s): E46 - Unspecified protein-calorie malnutrition Status: Acute Assessment and Plan: As above (5) Abnormal chest x-ray: Code(s): R93.89 - Abnormal findings on diagnostic imaging of other specified body structures Status: Acute Assessment and Plan: Do not suspect infection, abnormalities likely chronic noted on chest x-ray Plan DVT prophylaxis with SCDs GI prophylaxis not indicated Code status full code Subjective Date/time seen: 08/22/22 08:44 Interval history: No overnight events noted. No chest pain or shortness of breath. No nausea, vomiting or diarrhea. No fevers or chills. Patient states he still feels a little weak, but much better than when he came in. Review of Systems Review of Systems: 12 point review of systems was assessed and was negative except as noted in the HPI Exam Narrative: General: No acute distress, alert and oriented per baseline HEENT: Atraumatic, normocephalic, mucous membranes moist CV: Regular rate and rhythm, S1, S2, soft systolic ejection murmur, +2/6 Lungs: Clear to auscultation bilaterally, no rales or crackles noted, no wheezes, good air entry Abdomen: Soft, nontender, nondistended Extremities: Normal to inspection Skin: No rashes noted, no lesions or wounds seen Psych: Euthymic, normal affect Objective Data Vital Signs Vital Signs: Vital Signs - 24 hr 08/21/22 10:25 08/21/22 11:37 08/21/22 10:00 Temperature 96.9 F L Pulse Rate 85 106 H Respiratory Rate 16 Blood Pressure 91/45 L Pulse Oximetry 100 Oxygen Delivery Room Air 08/21/22 12:00 08/21/22 14:00 08/21/22 15:31 Temperature 96.5 F L Pulse Rate 82 85 90 Respiratory Rate 18 Blood Pressure 90/48 L Pulse Oximetry 100 Oxygen Delivery 08/21/22 16:00 08/21/22 16:00 08/21/22 18:00 Temperature Pulse Rate 91 91 90 Respiratory Rate 18 Blood Pressure Pulse Oximetry 100 Oxygen Delivery Room Air 08/21/22 20:20 08/21/22 21:58 08/21/22 21:58 Temperature 97.3 F L Pulse Rate 96 Respiratory Rate 20 Blood Pressure 86/47 L 78/39 L 87/53 L Pulse Oximetry 98 Oxygen Delivery 08/21/22 22:59 08/21/22 23:00 08/21/22 20:00 Temperature Pulse Rate Respiratory Rate Blood Pressure 96/45 L 100/49 L Pulse Oximetry Oxygen Delivery Room Air 08/21/22 20:00 08/21/22 22:00 08/21/22 23:56 Temperature 98.0 F Pulse Rate 90 87 81 Respiratory Rate 20 Blood Pressure 99/52 L Pulse Oximetry 100 Oxygen Delivery 08/22/22 00:00 08/22/22 00:00 08/22/22 02:00 Temperature Pulse Rate 85 79 Respiratory Rate Blood Pressure Pulse Oximetry Oxygen Delivery Room Air 08/22/22 03:55 08/22/22 04:00 08/22/22 04:00 Temperature 97.9 F Pulse Rate 86 96 Respiratory Rate 20 Blood Pressure 115/60 Pulse Oximetry 99 Oxygen Delivery Room Air 08/22/22 06:00 08/22/22 08:00 Temperature 97.8 F Pulse Rate 74 100 Respiratory Rate 16 Blood Pressure 94/53 L Pulse Oximetry 100 Oxygen Delivery Intake/Output Intake/Output: Intake & Output 08/19/22 08/20/22 08/21/22 08/22/22 23:59 23:59 23:59 23:59 Inta
--- NOTE | 2022-08-22 09:53 | PM.PNNEP ---
Progress Note: A&P Assessment and Plan (1) Hyponatremia: Code(s): E87.1 - Hypo-osmolality and hyponatremia Status: Acute Assessment and Plan: unclear how acute or chronic (assuming acute) probably hypovolemic in nature given history evaluation to date: urine electrolytes prerenal TSH and cortisol okay SPEP/UPEP and serum/urine osmo pending head CT normal CXR and chest CT results reviewed s/p 3% saline with rise in sodium as noted -- off 3% saline at this time goal rate of correction is 6 - 8mmol/L in the first 24 hours -- this has been achieved currently on low dose normal saline IVFs will need to ascertain if he is up to date on malignancy screening His sodium level seems to have plateaued. He has been getting IV fluids for a few days and is eating well now. Will stop IV fluids and part a fluid restriction. Will continue to follow. Subjective Date/time seen: 08/22/22 09:53 Interval history: Gunner dubose feels better today. He is eating fairly well. Exam Narrative: General: elderly very thin frail appearing male who appears older than stated age Heart: normal S1 and S2; no rub or gallop Lungs: clear to auscultation Abdomen: soft, nontender, nondistended, positive bowel sounds Extremities:no edema Skin: No rash Objective Data Vital Signs Vital Signs: Vital Signs - 24 hr 08/21/22 10:25 08/21/22 11:37 08/21/22 10:00 Temperature 96.9 F L Pulse Rate 85 106 H Respiratory Rate 16 Blood Pressure 91/45 L Pulse Oximetry 100 Oxygen Delivery Room Air 08/21/22 12:00 08/21/22 14:00 08/21/22 15:31 Temperature 96.5 F L Pulse Rate 82 85 90 Respiratory Rate 18 Blood Pressure 90/48 L Pulse Oximetry 100 Oxygen Delivery 08/21/22 16:00 08/21/22 16:00 08/21/22 18:00 Temperature Pulse Rate 91 91 90 Respiratory Rate 18 Blood Pressure Pulse Oximetry 100 Oxygen Delivery Room Air 08/21/22 20:20 08/21/22 21:58 08/21/22 21:58 Temperature 97.3 F L Pulse Rate 96 Respiratory Rate 20 Blood Pressure 86/47 L 78/39 L 87/53 L Pulse Oximetry 98 Oxygen Delivery 08/21/22 22:59 08/21/22 23:00 08/21/22 20:00 Temperature Pulse Rate Respiratory Rate Blood Pressure 96/45 L 100/49 L Pulse Oximetry Oxygen Delivery Room Air 08/21/22 20:00 08/21/22 22:00 08/21/22 23:56 Temperature 98.0 F Pulse Rate 90 87 81 Respiratory Rate 20 Blood Pressure 99/52 L Pulse Oximetry 100 Oxygen Delivery 08/22/22 00:00 08/22/22 00:00 08/22/22 02:00 Temperature Pulse Rate 85 79 Respiratory Rate Blood Pressure Pulse Oximetry Oxygen Delivery Room Air 08/22/22 03:55 08/22/22 04:00 08/22/22 04:00 Temperature 97.9 F Pulse Rate 86 96 Respiratory Rate 20 Blood Pressure 115/60 Pulse Oximetry 99 Oxygen Delivery Room Air 08/22/22 06:00 08/22/22 08:00 Temperature 97.8 F Pulse Rate 74 100 Respiratory Rate 16 Blood Pressure 94/53 L Pulse Oximetry 100 Oxygen Delivery Intake/Output Intake/Output: Intake & Output 08/19/22 08/20/22 08/21/22 08/22/22 23:59 23:59 23:59 23:59 Intake Total 1600 454 Output Total 400 900 775 Balance -400 700 -321 Meds/Results Medications: Active Medications Generic Name Dose Route Start Last Admin Trade Name Freq PRN Reason Stop Dose Admin Sodium Chloride 1,000 mls @ 50 mls/hr 08/21/22 19:50 08/22/22 04:30 Normal Saline Iv IV CONT 50 mls/hr .Q20H BIN Infusion Miconazole Nitrate 1 applic 08/21/22 09:00 08/21/22 21:32 Miconazole 2% Antifungal Ointment 56 Gm TOPICAL 1 applic Q12HR BIN Administration Radiology Results: ITS Impressions Chest X-Ray 08/20/22 11:25 IMPRESSION: 1. Scarring and volume loss of the lung apices, likely infection or chronic lung disease. 2. Airspace opacities of the lung bases and left midlung zone, consistent with atelectasis versus pneumonia. Head CT 08/20
[2022-08-22 10:11] LABS: Sodium 123 mmol/L (137-145)
[2022-08-22 15:58] LABS: Sodium 127 mmol/L (137-145)
[2022-08-22] MEDS: SODIUM CHLORIDE 0.9% IV 1,000 ML 50 ML IV CONT (18:34)
[2022-08-23] VITALS (18 sets, daily range): BP systolic 94–111; BP diastolic 50–62; PULSE 71–106; RESP 18–22; TEMP 36.3–36.6; O2SAT 99–100
[2022-08-23 06:01] LABS: Basophils Percent Auto 0.4 % (0.2-1.2); Eosinophils Absolute Auto 0.2 K/mm3 (0-0.3); Eosinophils Percent Auto 3.1 % (0-4.4); Hematocrit 27.8 % (42.0-52.0); Hemoglobin 9.6 g/dL (14.0-18.0); Immature Granulocyte Absolute 0.01 K/mm3 (0.00-0.031); Immature Granulocyte Percent A 0.2 % (0-0.5); Lymphocytes Absolute Auto 1.48 K/mm3 (0.9-3.2); Mean Corpuscular HGB Conc 34.5 g/dl (32-36); Mean Corpuscular Hemoglobin 30.6 pg (26-34); Mean Corpuscular Volume 88.5 fl (80-100); Mean Platelet Volume 7.9 fl (7.4-10.4); Monocytes Absolute Auto 0.5 K/mm3 (0.1-0.6); Monocytes Percent Auto 8.9 % (2.6-8.5); Neutrophils Absolute Auto 3.3 K/mm3 (1.3-6.7); Neutrophils Percent Auto 60.4 % (45.5-73.1); Platelet Count Result 139 k/mm3 (150-375); Red Blood Count 3.14 M/mm3 (4.6-6.20); White Blood Count 5.5 K/mm3 (4.5-10.0)
[2022-08-23 06:05] LABS: Alanine Aminotransferase 19 U/L (6-50); Albumin Level 3.1 g/dL (3.5-5.1); Alkaline Phosphatase 119 U/L (38-126); Anion Gap 1 mmol/L (8-16); Aspartate Amino Transferase 50 U/L (17-59); Bilirubin,Total 0.5 mg/dL (0.2-1.3); Blood Urea Nitrogen 7 mg/dL (9-20); Calcium 7.6 mg/dL (8.4-10.2); Carbon Dioxide 36 mmol/L (22-30); Chloride 91 mmol/L (98-107); Estimated CRCL calculation 93 ml/min; Estimated Glomerular Filt Rate > 60; Glucose 95 mg/dL (65-110); Phosphorus 1.4 mg/dL (2.5-4.5); Potassium 4.2 mmol/L (3.4-5.0); Sodium 128 mmol/L (137-145)
[2022-08-23 06:59] LABS: Iron 41 ug/dL (49-181)
[2022-08-23 07:09] LABS: Percent Iron Saturation 20 % (20-50)
[2022-08-23 07:11] LABS: Folic Acid 3.4 ng/mL (2.76->20)
--- NOTE | 2022-08-23 09:31 | PM.IMPN ---
Progress Note: A&P Assessment and Plan (1) Hyponatremia: Code(s): E87.1 - Hypo-osmolality and hyponatremia Status: Acute Assessment and Plan: Appreciate nephrology consultation, slowly but appropriately improving, NS d/c per nephro, cont to monitor Sodium 128 today On fluid restriction (2) Normocytic anemia: Code(s): D64.9 - Anemia, unspecified Status: Acute Assessment and Plan: Hgb improved to 9.6 today, cont to monitor, FOBT pending Retic count pending B12 and folate WNL Iron and TIBC slightly low with normal saturation and elevated ferritin (3) Adult failure to thrive: Code(s): R62.7 - Adult failure to thrive Status: Acute Assessment and Plan: Good p.o. intake while here, encourage continued p.o. intake Ensure with meals (4) Malnutrition: Code(s): E46 - Unspecified protein-calorie malnutrition Status: Acute Assessment and Plan: As above (5) Abnormal chest x-ray: Code(s): R93.89 - Abnormal findings on diagnostic imaging of other specified body structures Status: Acute Assessment and Plan: Do not suspect infection, abnormalities likely chronic noted on chest x-ray (6) Constipation: Code(s): K59.00 - Constipation, unspecified Status: Acute Assessment and Plan: start senna, reassess Plan DVT prophylaxis with SCDs GI prophylaxis not indicated Code status full code Subjective Date/time seen: 08/23/22 09:31 Interval history: No overnight events noted. No chest pain or shortness of breath. No nausea, vomiting or diarrhea. No fevers or chills. Patient states he feels a little stronger today than yesterday. No complaints. Review of Systems Review of Systems: 12 point review of systems was assessed and was negative except as noted in the HPI Exam Narrative: General: No acute distress, alert and oriented per baseline HEENT: Atraumatic, normocephalic, mucous membranes moist CV: Regular rate and rhythm, S1, S2, soft systolic ejection murmur, +2/6 Lungs: Clear to auscultation bilaterally, no rales or crackles noted, no wheezes, good air entry Abdomen: Soft, nontender, nondistended Extremities: Normal to inspection Skin: No rashes noted, no lesions or wounds seen Psych: Euthymic, normal affect Objective Data Vital Signs Vital Signs: Vital Signs - 24 hr 08/22/22 12:00 08/22/22 16:00 08/22/22 10:00 Temperature 97.8 F 98.0 F Pulse Rate 68 92 84 Respiratory Rate 20 24 H Blood Pressure 95/52 L 89/48 L Pulse Oximetry 100 100 Oxygen Delivery 08/22/22 12:00 08/22/22 14:00 08/22/22 16:00 Temperature Pulse Rate 84 91 92 Respiratory Rate Blood Pressure Pulse Oximetry Oxygen Delivery 08/22/22 18:00 08/22/22 12:00 08/22/22 16:00 Temperature Pulse Rate 97 97 97 Respiratory Rate Blood Pressure Pulse Oximetry 100 100 Oxygen Delivery Room Air Room Air 08/22/22 20:35 08/22/22 23:26 08/22/22 20:00 Temperature 97.5 F L 97.5 F L Pulse Rate 86 90 Respiratory Rate 20 20 Blood Pressure 87/47 L 97/58 L Pulse Oximetry 100 99 Oxygen Delivery Room Air 08/23/22 00:00 08/22/22 20:00 08/22/22 22:00 Temperature Pulse Rate 85 86 Respiratory Rate Blood Pressure Pulse Oximetry Oxygen Delivery Room Air 08/23/22 00:00 08/23/22 02:00 08/23/22 04:00 Temperature Pulse Rate 86 75 Respiratory Rate Blood Pressure Pulse Oximetry Oxygen Delivery Room Air 08/23/22 04:00 08/23/22 04:16 08/23/22 05:59 Temperature 97.8 F Pulse Rate 73 77 76 Respiratory Rate 20 Blood Pressure 94/51 L Pulse Oximetry 99 Oxygen Delivery 08/23/22 08:22 Temperature 97.9 F Pulse Rate 76 Respiratory Rate 20 Blood Pressure 102/52 L Pulse Oximetry 100 Oxygen Delivery Intake/Output Intake/Output: Intake & Output 08/20/22 08/21/22 08/22/22 08/23/22 23:59 23:59 23:59 23:59 Intake
[2022-08-23 09:46] LABS: Immature Reticulocyte Fraction 26.3 % (3.0-15.9); Reticulocyte Hemoglobin Conten 32.2 pg (28.2-35.7); Reticulocyte Percent 1.75 % (0.7-4.3); Reticulocytes Absolute 0.06 B/L (32.2-175.7)
--- NOTE | 2022-08-23 10:41 | PM.PNNEP ---
Progress Note: A&P Assessment and Plan (1) Hyponatremia: Code(s): E87.1 - Hypo-osmolality and hyponatremia Status: Acute Assessment and Plan: unclear how acute or chronic (assuming acute) probably hypovolemic in nature given history evaluation to date: urine electrolytes prerenal TSH and cortisol okay SPEP/UPEP and serum/urine osmo pending head CT normal CXR and chest CT results reviewed s/p 3% saline with rise in sodium as noted -- off 3% saline at this time goal rate of correction is 6 - 8mmol/L in the first 24 hours -- this has been achieved Eating well and on fluid restriction. Sodium level has risen to 128 this morning. Will continue to follow. (2) Hypophosphatemia: Code(s): E83.39 - Other disorders of phosphorus metabolism Status: Acute Assessment and Plan: Calcium level is low as well. Consider vitamin-D deficiency Consider refeeding? Will supplement phosphorus, get another level tomorrow, check a vitamin-D level. Subjective Date/time seen: 08/23/22 10:41 Interval history: Gunner dubose feels better today. Sitting up in a chair. He feels stronger. He is eatin well. Exam Narrative: General: elderly very thin frail appearing male who appears older than stated age Heart: normal S1 and S2; no rub or gallop Lungs: clear to auscultation Abdomen: soft, nontender, nondistended, positive bowel sounds Extremities:no edema Skin: No rash Objective Data Vital Signs Vital Signs: Vital Signs - 24 hr 08/22/22 12:00 08/22/22 16:00 08/22/22 12:00 Temperature 97.8 F 98.0 F Pulse Rate 68 92 84 Respiratory Rate 20 24 H Blood Pressure 95/52 L 89/48 L Pulse Oximetry 100 100 Oxygen Delivery 08/22/22 14:00 08/22/22 16:00 08/22/22 18:00 Temperature Pulse Rate 91 92 97 Respiratory Rate Blood Pressure Pulse Oximetry Oxygen Delivery 08/22/22 12:00 08/22/22 16:00 08/22/22 20:35 Temperature 97.5 F L Pulse Rate 97 97 86 Respiratory Rate 20 Blood Pressure 87/47 L Pulse Oximetry 100 100 100 Oxygen Delivery Room Air Room Air 08/22/22 23:26 08/22/22 20:00 08/23/22 00:00 Temperature 97.5 F L Pulse Rate 90 Respiratory Rate 20 Blood Pressure 97/58 L Pulse Oximetry 99 Oxygen Delivery Room Air Room Air 08/22/22 20:00 08/22/22 22:00 08/23/22 00:00 Temperature Pulse Rate 85 86 86 Respiratory Rate Blood Pressure Pulse Oximetry Oxygen Delivery 08/23/22 02:00 08/23/22 04:00 08/23/22 04:00 Temperature Pulse Rate 75 73 Respiratory Rate Blood Pressure Pulse Oximetry Oxygen Delivery Room Air 08/23/22 04:16 08/23/22 05:59 08/23/22 08:22 Temperature 97.8 F 97.9 F Pulse Rate 77 76 76 Respiratory Rate 20 20 Blood Pressure 94/51 L 102/52 L Pulse Oximetry 99 100 Oxygen Delivery Intake/Output Intake/Output: Intake & Output 08/20/22 08/21/22 08/22/22 08/23/22 23:59 23:59 23:59 23:59 Intake Total 1600 2750 490 Output Total 171 589 6633 150 Balance -417 962 4492 340 Meds/Results Medications: Active Medications Generic Name Dose Route Start Last Admin Trade Name Freq PRN Reason Stop Dose Admin Miconazole Nitrate 1 applic 08/21/22 09:00 08/23/22 09:22 Miconazole 2% Antifungal Ointment 56 Gm TOPICAL Not Given Q12HR BIN Radiology Results: ITS Impressions Chest X-Ray 08/20/22 11:25 IMPRESSION: 1. Scarring and volume loss of the lung apices, likely infection or chronic lung disease. 2. Airspace opacities of the lung bases and left midlung zone, consistent with atelectasis versus pneumonia. Head CT 08/20/22 12:41 IMPRESSION: 1. Normal brain. Labs Labs: Laboratory Results - last 24 hr 08/22/22 08/23/22 08/23/22 15:41 05:38 05:42 WBC 5.5 RBC 3.14 L Hgb 9.6 L Hct 27.8 L MCV 88.5 MCH 30.6 MCHC 34.5 RDW 14.0 Plt Count 139 L MPV 7.9 Immature Gran % (Au
[2022-08-23 11:29] LABS: Parathyroid Intact 60.9 pg/mL (7.5-53.5)
[2022-08-23] MEDS: POTASSIUM/PHOSPHORUS/SODIUM 1.5 GM PACKET 1 PACKET PO ×2 (11:32→16:55)
[2022-08-23 13:53] LABS: Vitamin D 25 Hydroxy < 12.8 ng/mL
[2022-08-23] MEDS: SENNA/DOCUSATE SODIUM TABLET 1 TAB PO (16:54)
[2022-08-23] MEDS: ACETAMINOPHEN 325 MG TABLET 650 MG PO (21:30)
[2022-08-24] VITALS (9 sets, daily range): BP systolic 92–109; BP diastolic 46–72; PULSE 67–104; RESP 14–22; TEMP 35.9–37.4; O2SAT 97–100
[2022-08-24 04:11] LABS: Basophils Percent Auto 0.5 % (0.2-1.2); Eosinophils Absolute Auto 0.4 K/mm3 (0-0.3); Eosinophils Percent Auto 6.2 % (0-4.4); Hematocrit 25.3 % (42.0-52.0); Hemoglobin 8.6 g/dL (14.0-18.0); Immature Granulocyte Absolute 0.02 K/mm3 (0.00-0.031); Immature Granulocyte Percent A 0.3 % (0-0.5); Lymphocytes Absolute Auto 1.67 K/mm3 (0.9-3.2); Lymphocytes Percent Auto 28.8 % (18.3-44.2); Mean Corpuscular Hemoglobin 30.1 pg (26-34); Mean Corpuscular Volume 88.5 fl (80-100); Mean Platelet Volume 8.1 fl (7.4-10.4); Monocytes Absolute Auto 0.6 K/mm3 (0.1-0.6); Monocytes Percent Auto 10.7 % (2.6-8.5); Neutrophils Absolute Auto 3.1 K/mm3 (1.3-6.7); Neutrophils Percent Auto 53.5 % (45.5-73.1); Platelet Count Result 137 k/mm3 (150-375); Red Blood Count 2.86 M/mm3 (4.6-6.20); Red Cell Distribution Width 14.2 % (11.5-14.5); White Blood Count 5.8 K/mm3 (4.5-10.0)
[2022-08-24 04:28] LABS: Alanine Aminotransferase 21 U/L (6-50); Albumin Level 2.9 g/dL (3.5-5.1); Alkaline Phosphatase 156 U/L (38-126); Anion Gap 3 mmol/L (8-16); Aspartate Amino Transferase 52 U/L (17-59); Bilirubin,Total 0.4 mg/dL (0.2-1.3); Blood Urea Nitrogen 12 mg/dL (9-20); Calcium 7.1 mg/dL (8.4-10.2); Carbon Dioxide 32 mmol/L (22-30); Chloride 95 mmol/L (98-107); Estimated CRCL calculation 110 ml/min; Estimated Glomerular Filt Rate > 60; Glucose 91 mg/dL (65-110); Potassium 3.6 mmol/L (3.4-5.0); Sodium 130 mmol/L (137-145)
--- NOTE | 2022-08-24 08:04 | PM.IMPN ---
Progress Note: A&P Assessment and Plan (1) Hyponatremia: Code(s): E87.1 - Hypo-osmolality and hyponatremia Status: Acute Assessment and Plan: Appreciate nephrology consultation, slowly but appropriately improving, NS d/c per nephro, cont to monitor Sodium 130 today On fluid restriction, no IVF (2) Normocytic anemia: Code(s): D64.9 - Anemia, unspecified Status: Acute Assessment and Plan: Hgb back down to 8.6 today 08/24, cont to monitor, FOBT pending B12 and folate WNL Iron and TIBC slightly low with normal saturation and elevated ferritin (3) Adult failure to thrive: Code(s): R62.7 - Adult failure to thrive Status: Acute Assessment and Plan: Good p.o. intake while here, encourage continued p.o. intake Ensure with meals (4) Malnutrition: Code(s): E46 - Unspecified protein-calorie malnutrition Status: Acute Assessment and Plan: As above (5) Abnormal chest x-ray: Code(s): R93.89 - Abnormal findings on diagnostic imaging of other specified body structures Status: Acute Assessment and Plan: Do not suspect infection, abnormalities likely chronic noted on chest x-ray (6) Constipation: Code(s): K59.00 - Constipation, unspecified Status: Acute Assessment and Plan: Cont senna, reassess (7) Vitamin D deficiency: Code(s): E55.9 - Vitamin D deficiency, unspecified Status: Acute Assessment and Plan: Start ergocalciferol 50K weekly x 12 weeks then recheck Calcium WNL when corrected for albumin Phosphorous replacement per nephrology Plan Anticipate discharge soon if sodium improves and ok with nephrology DVT prophylaxis with SCDs GI prophylaxis not indicated Code status full code Subjective Date/time seen: 08/24/22 08:04 Interval history: No overnight events noted. No chest pain or shortness of breath. No nausea, vomiting or diarrhea. No fevers or chills. Patient adamant that he is going home as opposed to a nursing facility. Review of Systems Review of Systems: 12 point review of systems was assessed and was negative except as noted in the HPI Exam Narrative: General: No acute distress, alert and oriented per baseline HEENT: Atraumatic, normocephalic, mucous membranes moist CV: Regular rate and rhythm, S1, S2, soft systolic ejection murmur, +2/6 Lungs: Clear to auscultation bilaterally, no rales or crackles noted, no wheezes, good air entry Abdomen: Soft, nontender, nondistended Extremities: Normal to inspection Skin: No rashes noted, no lesions or wounds seen Psych: Euthymic, normal affect Objective Data Vital Signs Vital Signs: Vital Signs - 24 hr 08/23/22 08:22 08/23/22 10:00 08/23/22 11:52 Temperature 97.9 F Pulse Rate 76 106 H Respiratory Rate 20 Blood Pressure 102/52 L Pulse Oximetry 100 100 Oxygen Delivery Room Air 08/23/22 12:02 08/23/22 12:00 08/23/22 14:00 Temperature 97.3 F L Pulse Rate 82 85 82 Respiratory Rate 22 H Blood Pressure 111/52 L Pulse Oximetry 100 Oxygen Delivery 08/23/22 16:12 08/23/22 16:00 08/23/22 16:00 Temperature 97.6 F Pulse Rate 90 89 90 Respiratory Rate 20 20 Blood Pressure 103/53 L Pulse Oximetry 100 100 Oxygen Delivery Room Air 08/23/22 18:00 08/23/22 20:00 08/23/22 23:31 Temperature 97.7 F 97.6 F Pulse Rate 90 84 91 Respiratory Rate 18 18 Blood Pressure 101/62 96/50 L Pulse Oximetry 99 99 Oxygen Delivery 08/23/22 20:00 08/23/22 23:58 08/23/22 20:00 Temperature Pulse Rate 83 Respiratory Rate Blood Pressure Pulse Oximetry Oxygen Delivery Room Air Room Air 08/23/22 22:00 08/24/22 00:00 08/24/22 02:00 Temperature Pulse Rate 71 77 74 Respiratory Rate Blood Pressure Pulse Oximetry Oxygen Delivery 08/24/22 04:00 08/24/22 04:00 08/24/22 04:00 Temperature 97.8 F Pulse Rate 76 70 Respira
[2022-08-24] MEDS: SENNA/DOCUSATE SODIUM TABLET 1 TAB PO ×2 (08:46→17:30)
[2022-08-24] MEDS: POTASSIUM/PHOSPHORUS/SODIUM 1.5 GM PACKET 1 PACKET PO ×3 (08:46→17:30)
--- NOTE | 2022-08-24 08:51 | PM.PNNEP ---
Progress Note: A&P Assessment and Plan (1) Hyponatremia: Code(s): E87.1 - Hypo-osmolality and hyponatremia Status: Acute Assessment and Plan: resolving/improving unclear how acute or chronic (assuming acute) probably hypovolemic in nature given history evaluation to date: urine electrolytes prerenal TSH and cortisol okay SPEP/UPEP and serum/urine osmo pending head CT normal CXR and chest CT results reviewed s/p 3% saline with rise in sodium as noted on admission goal rate of correction is 6 - 8mmol/L in the first 24 hours -- this has been achieved eating well and on fluid restriction follow trend of repeat sodium levels (2) Hypophosphatemia: Code(s): E83.39 - Other disorders of phosphorus metabolism Status: Acute Assessment and Plan: phosphorus low yesterday calcium running low as well Vitamin D quite low PTH elevated started Vitamin D supplementation follow repeat phosphorus levels Will continue to follow. Subjective Date/time seen: 08/24/22 08:51 Chart reviewed since last seen -- sodium levels continues to improve with current interventions; no new issues or concerns to report; still quite weak but working with PT/OT as tolerated; no apparent distress overnight or earlier this AM. Exam Narrative: General: elderly. thin and frail appearing male who appears older than stated age Heart: normal S1 and S2 Lungs: clear to auscultation Abdomen: soft, nontender, nondistended, positive bowel sounds Extremities:no edema Skin: warm and dry Objective Data Vital Signs Vital Signs: Vital Signs Temp Pulse Resp BP Pulse Ox O2 Del Method 08/24/22 08:00 96.6 F L 75 22 H 95/52 L 100 08/24/22 06:00 67 08/24/22 04:00 70 08/24/22 04:00 Room Air 08/24/22 04:00 97.8 F 76 20 107/72 97 08/24/22 02:00 74 08/24/22 00:00 77 08/23/22 22:00 71 08/23/22 20:00 83 08/23/22 23:58 Room Air 08/23/22 20:00 Room Air 08/23/22 23:31 97.6 F 91 18 96/50 L 99 08/23/22 20:00 97.7 F 84 18 101/62 99 08/23/22 18:00 90 08/23/22 16:00 90 20 100 Room Air 08/23/22 16:00 89 08/23/22 16:12 97.6 F 90 20 103/53 L 100 08/23/22 14:00 82 08/23/22 12:00 85 08/23/22 12:02 97.3 F L 82 22 H 111/52 L 100 08/23/22 11:52 100 Room Air 08/23/22 10:00 106 H Intake/Output Intake/Output: Intake & Output 08/21/22 08/22/22 08/23/22 08/24/22 23:59 23:59 23:59 23:59 Intake Total 1600 2750 1170 100 Output Total 900 1125 725 250 Balance 700 1625 445 -150 Meds/Results Medications: Active Medications Generic Name Dose Route Start Last Admin Trade Name Freq PRN Reason Stop Dose Admin Acetaminophen 650 mg 08/23/22 21:14 08/23/22 21:30 Acetaminophen 325 Mg Tablet PO 650 mg Q6H PRN Administration Mild Pain (1-3) or Fever Ergocalciferol 50,000 units 08/24/22 09:00 Ergocalciferol 50,000 Units Capsule PO WEEKLY [facility] Miconazole Nitrate 1 applic 08/21/22 09:00 08/24/22 08:46 Miconazole 2% Antifungal Ointment 56 Gm TOPICAL 1 applic Q12HR BIN Administration Potassium Phos/Sodium Phos 1 packet 08/23/22 13:00 08/24/22 08:46 Potassium/Phosphorus/Sodium 1.5 Gm Packet PO 08/25/22 09:01 1 packet TID BIN Administration Senna/Docusate Sodium 1 tab 08/23/22 14:55 08/24/22 08:46 Senna/Docusate Sodium Tablet PO 1 tab BID BIN Administration Radiology Results: ITS Impressions Chest X-Ray 08/20/22 11:25 IMPRESSION: 1. Scarring and volume loss of the lung apices, likely infection or chronic lung disease. 2. Airspace opacities of the lung bases and left midlung zone, consistent with atelectasis versus pneumonia. Head CT 08/20/22 12:41 IMPRESSION: 1. Normal brain. Labs Labs: Laboratory Tests 08/24/22 03:12 08/24/22 03:12
[2022-08-24] MEDS: ERGOCALCIFEROL 50,000 UNITS CAPSULE 50000 UNITS PO (09:21)
[2022-08-24 10:12] LABS: Sodium 117 mmol/L (137-145)
--- NOTE | 2022-08-24 12:17 | P.CDI_ITS ---
CDI Query Clarified Diagnosis Clarified Diagnosis: Adult failure to thrive and Malnutrition noted in the assessment and plan. BMI 22.0 Nutritional Diagnostic Statement: Severe malnutrition related to chronic and acute illness as evidence by weight loss 1 month, intake < 50% needs > 1 week, muscle wasting to temporalis, clavicles,back of hands; fat loss to buccal fat pads, orbital fat pads, tricep area. Please clarify if known: Protein Calorie Malnutrition * Mild * Moderate * Severe * Other/Unspecified
--- NOTE | 2022-08-24 15:17 | PC.NURSE ---
This patient, Gunner Casillas, was transferred to [ [id number]] on 08/24/22 at 1517. Personal belongings sent with patient. Report given to [NADIRA Holguin @ [id number] ]. Appropriate documentation sent with patient.
--- NOTE | 2022-08-24 15:25 | PC.NURSE ---
This patient, Gunner Casillas, was received from on 08/24/22 at 1525. Patient/family oriented to unit policies and routines
[2022-08-24 15:53] LABS: Osmolality, Urine 207 mOsm/kg (50-1200)
[2022-08-24 17:03] LABS: Kappa\\Lambda Light Chains 0.36 (0.26-1.65); Lambda Light Chain 111.8 mg/L (5.7-26.3)
[2022-08-25] MEDS: ACETAMINOPHEN 325 MG TABLET 650 MG PO (05:47)
[2022-08-25 07:31] LABS: Basophils Percent Auto 0.4 % (0.2-1.2); Eosinophils Absolute Auto 0.2 K/mm3 (0-0.3); Eosinophils Percent Auto 2.4 % (0-4.4); Hematocrit 29.4 % (42.0-52.0); Hemoglobin 9.7 g/dL (14.0-18.0); Immature Granulocyte Absolute 0.03 K/mm3 (0.00-0.031); Immature Granulocyte Percent A 0.4 % (0-0.5); Lymphocytes Absolute Auto 0.96 K/mm3 (0.9-3.2); Lymphocytes Percent Auto 11.9 % (18.3-44.2); Mean Corpuscular Hemoglobin 30.8 pg (26-34); Mean Corpuscular Volume 93.3 fl (80-100); Monocytes Absolute Auto 0.5 K/mm3 (0.1-0.6); Monocytes Percent Auto 5.9 % (2.6-8.5); Neutrophils Absolute Auto 6.4 K/mm3 (1.3-6.7); Platelet Count Result 134 k/mm3 (150-375); Red Blood Count 3.15 M/mm3 (4.6-6.20); Red Cell Distribution Width 14.8 % (11.5-14.5); White Blood Count 8.1 K/mm3 (4.5-10.0)
[2022-08-25 07:36] LABS: Potassium 3.9 mmol/L (3.4-5.0)
[2022-08-25 07:45] LABS: Alanine Aminotransferase 26 U/L (6-50); Alkaline Phosphatase 114 U/L (38-126); Anion Gap 1 mmol/L (8-16); Aspartate Amino Transferase 56 U/L (17-59); Bilirubin,Total 0.5 mg/dL (0.2-1.3); Blood Urea Nitrogen 13 mg/dL (9-20); Calcium 7.2 mg/dL (8.4-10.2); Carbon Dioxide 30 mmol/L (22-30); Chloride 94 mmol/L (98-107); Estimated CRCL calculation 93 ml/min; Estimated Glomerular Filt Rate > 60; Glucose 92 mg/dL (65-110); Sodium 125 mmol/L (137-145)
--- NOTE | 2022-08-25 08:13 | PM.IMPN ---
Progress Note: A&P Assessment and Plan (1) Hyponatremia: Code(s): E87.1 - Hypo-osmolality and hyponatremia Status: Acute Assessment and Plan: Appreciate nephrology consultation, slowly but appropriately improving, NS d/c per nephro, cont to monitor Sodium 125 today On fluid restriction, no IVF (2) Normocytic anemia: Code(s): D64.9 - Anemia, unspecified Status: Acute Assessment and Plan: Hgb back down to 8.6 today 08/24, cont to monitor B12 and folate WNL Iron and TIBC slightly low with normal saturation and elevated ferritin Stool occult positive for blood, GI consult pending (3) Adult failure to thrive: Code(s): R62.7 - Adult failure to thrive Status: Acute Assessment and Plan: Good p.o. intake while here, encourage continued p.o. intake Ensure with meals (4) Malnutrition: Code(s): E46 - Unspecified protein-calorie malnutrition Status: Acute Assessment and Plan: As above (5) Abnormal chest x-ray: Code(s): R93.89 - Abnormal findings on diagnostic imaging of other specified body structures Status: Acute Assessment and Plan: Do not suspect infection, abnormalities likely chronic noted on chest x-ray (6) Constipation: Code(s): K59.00 - Constipation, unspecified Status: Acute Assessment and Plan: Cont senna, reassess (7) Vitamin D deficiency: Code(s): E55.9 - Vitamin D deficiency, unspecified Status: Acute Assessment and Plan: Start ergocalciferol 50K weekly x 12 weeks then recheck Calcium WNL when corrected for albumin Phosphorous replacement per nephrology Plan Anticipate discharge soon if sodium improves and ok with nephrology, no waiting on GI consult for positive stool occult blood, however, hemoglobin is stable, this can be managed outpatient DVT prophylaxis with SCDs GI prophylaxis not indicated Code status full code Subjective Date/time seen: 08/25/22 08:13 Interval history: No overnight events noted. No chest pain or shortness of breath. No nausea, vomiting or diarrhea. No fevers or chills. Patient adamant that he is going home as opposed to a nursing facility. Review of Systems Review of Systems: 12 point review of systems was assessed and was negative except as noted in the HPI Exam Narrative: General: No acute distress, alert and oriented per baseline HEENT: Atraumatic, normocephalic, mucous membranes moist CV: Regular rate and rhythm, S1, S2, soft systolic ejection murmur, +2/6 Lungs: Clear to auscultation bilaterally, no rales or crackles noted, no wheezes, good air entry Abdomen: Soft, nontender, nondistended Extremities: Normal to inspection Skin: No rashes noted, no lesions or wounds seen Psych: Euthymic, normal affect Objective Data Vital Signs Vital Signs: Vital Signs - 24 hr 08/24/22 10:00 08/24/22 12:00 08/24/22 12:00 Temperature 96.8 F L Pulse Rate 86 104 H Respiratory Rate 22 H Blood Pressure 109/59 L Pulse Oximetry 100 Oxygen Delivery Room Air 08/24/22 12:00 08/24/22 16:00 08/24/22 20:00 Temperature Pulse Rate 98 98 Respiratory Rate 22 H Blood Pressure Pulse Oximetry 100 Oxygen Delivery Room Air Room Air 08/24/22 23:48 Temperature 99.3 F Pulse Rate 84 Respiratory Rate 14 Blood Pressure 92/46 L Pulse Oximetry 100 Oxygen Delivery Intake/Output Intake/Output: Intake & Output 08/22/22 08/23/22 08/24/22 08/25/22 23:59 23:59 23:59 23:59 Intake Total 2750 1170 740 80 Output Total 1125 725 550 300 Balance 1625 445 190 -220 Meds/Results Medications: Active Medications Generic Name Dose Route Start Last Admin Trade Name Freq PRN Reason Stop Dose Admin Acetaminophen 650 mg 08/23/22 21:14 08/25/22 05:47 Acetaminophen 325 Mg Tablet PO 650 mg Q6H PRN Administration Mild Pain (1-3) or Fever Ergocalciferol 50,000 units 08/24/22
[2022-08-25 08:49] LABS: IFOB Positive Control Positive; Immunochemical Fecal Occult Bl Positive (N)
[2022-08-25] MEDS: POTASSIUM/PHOSPHORUS/SODIUM 1.5 GM PACKET 1 PACKET PO (09:14)
--- NOTE | 2022-08-25 10:13 | PM.PNNEP ---
Progress Note: A&P Assessment and Plan (1) Hyponatremia: Code(s): E87.1 - Hypo-osmolality and hyponatremia Status: Acute Assessment and Plan: improving unclear how acute or chronic (assuming acute) probably hypovolemic in nature given history evaluation to date: urine electrolytes prerenal TSH and cortisol okay SPEP/UPEP and serum/urine osmo pending head CT normal CXR and chest CT results reviewed s/p 3% saline with rise in sodium as noted on admission goal rate of correction is 6 - 8mmol/L in the first 24 hours -- this has been achieved eating well and on fluid restriction start salt tablets given low sodium this AM follow trend of repeat sodium levels (2) Hypophosphatemia: Code(s): E83.39 - Other disorders of phosphorus metabolism Status: Acute Assessment and Plan: phosphorus low yesterday calcium running low as well Vitamin D quite low PTH elevated started Vitamin D supplementation follow repeat phosphorus levels Will continue to follow. Subjective Date/time seen: 08/25/22 10:13 Despite recommendations, he is not willing to go to nursing facility under any circumstance; sodium a bit lower today by AM labs but mentation remains stable; no other acute issues/complaints voiced at this time; no apparent distress noted. Exam Narrative: General: elderly. thin and frail appearing male who appears older than stated age Heart: normal S1 and S2 Lungs: clear to auscultation Abdomen: soft, nontender, nondistended, positive bowel sounds Extremities:no edema Skin: warm and intact Objective Data Vital Signs Vital Signs: Vital Signs Temp Pulse Resp BP Pulse Ox O2 Del Method 08/24/22 23:48 99.3 F 84 14 92/46 L 100 08/24/22 20:00 98 22 H 100 Room Air 08/24/22 16:00 Room Air Intake/Output Intake/Output: Intake & Output 08/22/22 08/23/22 08/24/22 08/25/22 23:59 23:59 23:59 23:59 Intake Total 2750 1170 740 260 Output Total 1125 725 550 300 Balance 1625 445 190 -40 Meds/Results Medications: Active Medications Generic Name Dose Route Start Last Admin Trade Name Freq PRN Reason Stop Dose Admin Acetaminophen 650 mg 08/23/22 21:14 08/25/22 05:47 Acetaminophen 325 Mg Tablet PO 650 mg Q6H PRN Administration Mild Pain (1-3) or Fever Ergocalciferol 50,000 units 08/24/22 09:00 08/24/22 09:21 Ergocalciferol 50,000 Units Capsule PO 50,000 units WEEKLY BIN Administration Miconazole Nitrate 1 applic 08/21/22 09:00 08/25/22 09:15 Miconazole 2% Antifungal Ointment 56 Gm TOPICAL 1 applic Q12HR BIN Administration Senna/Docusate Sodium 1 tab 08/23/22 14:55 08/25/22 09:15 Senna/Docusate Sodium Tablet PO Not Given BID [facility] Sodium Chloride 500 mg 08/25/22 10:32 08/25/22 10:58 Sodium Chloride 500 Mg Tablet PO 500 mg BID BIN Administration Radiology Results: ITS Impressions Chest X-Ray 08/20/22 11:25 IMPRESSION: 1. Scarring and volume loss of the lung apices, likely infection or chronic lung disease. 2. Airspace opacities of the lung bases and left midlung zone, consistent with atelectasis versus pneumonia. Head CT 08/20/22 12:41 IMPRESSION: 1. Normal brain. Labs Labs: Laboratory Tests 08/25/22 06:51 08/25/22 06:51
[2022-08-25] MEDS: SODIUM CHLORIDE 500 MG TABLET PO ×2 (10:58→16:13)
[2022-08-25 14:00] VITALS: BP 98/52; PULSE 80; RESP 18; TEMP 36.2; O2SAT 100
--- NOTE | 2022-08-25 14:13 | PCOTNOTE ---
Attempted to see pt for Occupational Therapy treatment. Pt reports he is too tired due to frequently visiting the bathroom for bm and refuses to sit up in the chair. Pt was offered to participate in UE strengthening, however, declined that as well. Pt was educated on the importance of continued participation with therapy in order to go home. Pt continues to say I'm too tired...its been a busy day. Will continue per POC duration/frequency tomorrow.
--- NOTE | 2022-08-25 15:11 | PM.DS ---
DS: Admitting Diagnosis Discharge Date 08/25/2022 Admitting Diagnosis Weakness DS: Discharge Diagnosis Discharge Diagnosis (1) Hyponatremia: Code(s): E87.1 - Hypo-osmolality and hyponatremia Status: Acute Assessment and Plan: Appreciate nephrology consultation, slowly but appropriately improving, NS d/c per nephro, cont to monitor Sodium 125 today On fluid restriction, no IVF (2) Normocytic anemia: Code(s): D64.9 - Anemia, unspecified Status: Acute Assessment and Plan: Hgb back down to 8.6 today 08/24, cont to monitor B12 and folate WNL Iron and TIBC slightly low with normal saturation and elevated ferritin Stool occult positive for blood, GI consult pending (3) Adult failure to thrive: Code(s): R62.7 - Adult failure to thrive Status: Acute Assessment and Plan: Good p.o. intake while here, encourage continued p.o. intake Ensure with meals (4) Malnutrition: Code(s): E46 - Unspecified protein-calorie malnutrition Status: Acute Assessment and Plan: As above (5) Abnormal chest x-ray: Code(s): R93.89 - Abnormal findings on diagnostic imaging of other specified body structures Status: Acute Assessment and Plan: Do not suspect infection, abnormalities likely chronic noted on chest x-ray (6) Constipation: Code(s): K59.00 - Constipation, unspecified Status: Acute Assessment and Plan: Cont senna, reassess (7) Vitamin D deficiency: Code(s): E55.9 - Vitamin D deficiency, unspecified Status: Acute Assessment and Plan: Start ergocalciferol 50K weekly x 12 weeks then recheck Calcium WNL when corrected for albumin Phosphorous replacement per nephrology Plan Anticipate discharge soon if sodium improves and ok with nephrology, no waiting on GI consult for positive stool occult blood, however, hemoglobin is stable, this can be managed outpatient DVT prophylaxis with SCDs GI prophylaxis not indicated Code status full code DS: Summary Hospital Course Hospital Course: 71-year-old male with history of hypertension and hypothyroidism presenting with weakness. He was found to have hyponatremia, anemia and malnutrition. Nephrology was consulted and placed the patient on a fluid restriction which corrected his sodium somewhat. Anemia was investigated in GI was ultimately consulted. However, the patient was eager to leave prior to GI consult and so this was arranged to be done outpatient. Over period of several days, sodium slowly improved. Nephrology stated that it was okay for him to be discharged with outpatient he has chronic hyponatremia. See above for details. Time Spent with Patient Time attestation: Total time spent providing and/or coordinating discharge services: Exam Narrative: General: No acute distress, alert and oriented per baseline HEENT: Atraumatic, normocephalic, mucous membranes moist CV: Regular rate and rhythm, S1, S2, soft systolic ejection murmur, +2/6 Lungs: Clear to auscultation bilaterally, no rales or crackles noted, no wheezes, good air entry Abdomen: Soft, nontender, nondistended Extremities: Normal to inspection Skin: No rashes noted, no lesions or wounds seen Psych: Euthymic, normal affect DS: Data Data Completed and Pending Labs on day of discharge: Labs from last 24 hours 08/25/22 08/25/22 08/24/22 06:51 06:51 08:22 WBC 8.1 RBC 3.15 L Hgb 9.7 L Hct 29.4 L MCV 93.3 D MCH 30.8 MCHC 33.0 RDW 14.8 H Plt Count 134 L MPV 8.0 Immature Gran % (Auto) 0.4 Neut % (Auto) 79.0 H Lymph % (Auto) 11.9 L [place] % (Auto) 5.9 Eos % (Auto) 2.4 Baso % (Auto) 0.4 Lymph # (Auto) 0.96 [place] # (Auto) 0.5 Eos # (Auto) 0.2 Baso # (Auto) 0.0 Abs Immat Gran (auto) 0.03 Absolute Neuts (auto) 6.4 Absolute Nucleated RBC 0.0 Nucleated RBC % 0.0 Sodium 125 L Potass
[2022-08-25 15:16] LABS: Albumin 2.7 g/dL (3.8-4.8); Alpha 1 Globulin 0.4 g/dL (0.2-0.3); Alpha 2 Globulin 0.7 g/dL (0.5-0.9); Beta 1 Globulin 0.4 g/dL (0.4-0.6); Gamma Globulin 1.9 g/dL (0.8-1.7); Protein, Total 6.7 g/dL (6.1-8.1)
[2022-08-26 05:59] LABS: Creatinine, Random Urine 24 mg/dL (20-320); Total Protein/Creatinine Ratio 458 mg/g creat (25-148)
[2022-08-26 15:52] LABS: Chloride Rand Ur 20 mmol/L (32-290); Chloride/Creatinine Rand Ur 87 (23-275); Creatinine Random Urine 23 mg/dL (20-320)
[2022-08-27 00:16] LABS: Vitamin D 1,25 (OH)2 Total 12 pg/mL (18-72); Vitamin D2 1,25 (OH)2 <8 pg/mL; Vitamin D3 1,25 (OH)2 12 pg/mL
== END 2022-08-25 17:55 | disposition home health service (06) | DRG 641 ==
LOC: ANHED 13:31 → ANHIMU 15:22 → ANH3MEDSUR 08-24 15:17
PROVIDERS: Emergency Medicine; Internal Medicine Nephrology; Physician Assistant; Admitting Provider Internal Medicine; Emergency Provider Physician Assistant; PCP Family Medicine; Visit Provider Student in an Organized Health Care Education/Training Program
DX: E87.1 Hypo-osmolality and hyponatremia (principal); E46 Unspecified protein-calorie malnutrition; Z68.22 Body mass index [BMI] 22.0-22.9, adult; E83.39 Other disorders of phosphorus metabolism; R62.7 Adult failure to thrive; Z20.822 Contact with and (suspected) exposure to COVID-19; E03.9 Hypothyroidism, unspecified; K59.00 Constipation, unspecified; E55.9 Vitamin D deficiency, unspecified; I10 Essential (primary) hypertension; M47.9 Spondylosis, unspecified; D64.9 Anemia, unspecified; Z90.49 Acquired absence of other specified parts of digestive tract; Z87.891 Personal history of nicotine dependence
CPT/HCPCS: 36415; 70450; 71046; 80048; 80053; 81001; 81050; 82274; 82306; 82436; 82533; 82550; 82570; 82607; 82652; 82728; 82746; 83540; 83550; 83735; 83880; 83883; 83930; 83935; 83970; 84100; 84155; 84156; 84165; 84166; 84295; 84300; 84443; 84484; 84540; 85025; 85027; 85046; 85652; 86140; 87636; 93005; 96360; 97110; 97161; 97166; 97530; 97535; 99285; A9270; G0378; J7030; J7131

== ENCOUNTER 2022-09-14 03:34 | Inpatient (IN) | payer MEDICARE, SELFPAY ==
[2022-09-14] VITALS (30 sets, daily range): BP systolic 85–131; BP diastolic 42–82; PULSE 88–151; RESP 18–41; TEMP 36.1–37; O2SAT 97–100; BMI 19.1
--- NOTE | ~2022-09-14 | XR_ITS ---
EXAMINATION: XR chest 1V portable DATE: 09/15/2022 06:34 INDICATION: Right hydropneumothorax TECHNIQUE: frontal view of the chest was obtained. COMPARISON: Chest radiograph and CT dated 09/14/22 FINDINGS: No significant change in a small right hydropneumothorax. Also without significant interval change or bilateral nodular and patchy airspace opacities throughout both lungs. Small left pleural effusion. The cardiomediastinal silhouette is normal. IMPRESSION: 1. Unchanged small right hydropneumothorax and new very small left pleural effusion. 2. Unchanged scattered nodular and patchy bilateral lung disease which could represent pneumonia or l ess likely metastatic disease. Reviewed, dictated and finalized at location A. NT ASSOCIATE IMPRESSION: 1. Unchanged small right hydropneumothorax and new very small left pleural effu jeaneth. 2. Unchanged scattered nodular and patchy bilateral lung disease which could re present pneumonia or less likely metastatic disease.
--- NOTE | ~2022-09-14 | XR_ITS ---
EXAMINATION: XR chest 1V portable DATE: 09/17/2022 08:48 INDICATION: Hypoxia. TECHNIQUE: A single frontal view of the chest was obtained. COMPARISON: Chest single view 09/16/2022, chest CT 09/14/2022 FINDINGS: There is a small right hydropneumothorax. There are scattered airspace opacities and inters titial opacities throughout the lungs bilaterally with architectural distortion. The heart size is no rmal. Pneumomediastinum is noted. IMPRESSION: 1. Stable small right hydropneumothorax. 2. Stable diffuse lung disease, consistent with pneumonia superimposed on chronic interstitial lung d isease. 3. Stable pneumomediastinum. Reviewed, dictated and finalized at location A. PUMPER IMPRESSION: 1. Stable small right hydropneumothorax. 2. Stable diffuse lung disease, consistent with pneumonia superimposed on chron ic interstitial lung disease. 3. Stable pneumomediastinum.
--- NOTE | ~2022-09-14 | CT_ITS ---
EXAMINATION: CT brain wo con DATE: 09/23/2022 17:27 INDICATION: AMS, possible hallucination . TECHNIQUE: Computed tomography (CT) of the head was performed before intravenous contrast. The mA was adjusted according to patient size. Iterative reconstruction technique was employed. The dose-length product was 1362.00 mGy-cm. COMPARISON: 09/14/2022. FINDINGS: Exam limited by lateral positioning during acquisition, nonstandard axial plane, and exclusion of the anterior portions of the skull from the [id number]. No acute intracranial hemorrhage or extra-axial fluid collection. No hydrocephalus, mass, or herniation. No acute ischemic infarct. Unremarkable dural venous sinus attenuation. No acute osseous abnormality. The aerated spaces are clear. Mild atrophy and chronic white matter change. Atherosclerotic intracranial calcification. Bilateral l ens replacements. IMPRESSION: No acute intracranial process detected, within the constraints of the limitations detailed above. Reviewed, dictated and finalized at location K. IMPRESSION: No acute intracranial process detected, within the constraints of the limitatio ns detailed above.
--- NOTE | ~2022-09-14 | CT_ITS ---
EXAMINATION: CT brain wo con DATE: 09/14/2022 05:55 INDICATION: Confusion. Failure to thrive. TECHNIQUE: Computed tomography (CT) of the head was performed without intravenous contrast. Sagittal and coronal reconstructions were performed. The mA was adjusted according to patient size. Iterative reconstruction technique was employed. The dose-length product was 466.82 mGy-cm. COMPARISON: head CT dated 08/20/2022 FINDINGS: No acute intracranial hemorrhage, acute infarction or abnormal extra axial fluid collection. Symmetri c prominence of the sulci consistent with mild age-appropriate diffuse cerebral volume loss. Ventric les are normal and symmetric. No mass/mass effect. Changes of bilateral intraocular lens replacement. The orbits and mastoid air cells are normal. No mucosal thickening in the ethmoid sinuses. IMPRESSION: 1. Normal aging brain. No acute intracranial process. Reviewed, dictated and finalized at location A. STRIPPER
--- NOTE | ~2022-09-14 | CT_ITS ---
EXAMINATION: CT chest abdomen pelvis wo con DATE: 09/14/2022 05:56 INDICATION: Failure to thrive. Shortness of breath. Confusion. TECHNIQUE: Computed tomography (CT) of the chest, abdomen, and pelvis was performed without intraveno us contrast. Automated exposure control and iterative reconstruction technique were employed. The dos e-length product was 517.30 mGy-cm. COMPARISON: 04/25/2021 FINDINGS: CHEST CT: Small right hydropneumothorax. Minimal left pleural effusion. There are new nodular and patchy ground glass opacities scattered throughout both lungs most extensive in the right lower lobe. Volume loss w ith interval progression of bronchiectasis and peripheral pleural parenchymal scarring in the bilater al upper lobes and lingula likely sequela of chronic/recurrent infection. Small amount of smooth sept al line thickening at the bilateral lung bases consistent with superimposed mild pulmonary edema. Sma ll amount of dependent bubbly mucus in the trachea and mainstem bronchi. Heart size is normal. Athero sclerotic coronary artery calcifications. Decreased attenuation the blood pool relative to the myocar dium consistent with anemia. No pericardial effusion. Thoracic aorta is normal in caliber. Small amou nt of pneumomediastinum. No pathologically enlarged thoracic lymphadenopathy. Moderate thoracic spond ylosis with bridging osteophytes at multiple levels consistent with diffuse idiopathic skeletal hyper ostosis (DISH). ABDOMEN/PELVIS CT: Suggestion of subtle gallstones in the dependent aspect of the otherwise normal gallbladder with no w all thickening or pericholecystic inflammatory stranding to suggest acute cholecystitis. Liver, splee n, pancreas, bilateral adrenal glands and kidneys are normal. Approximately 8 cm long segment of wall thickening along the distal sigmoid colon without evident associated diverticulosis. No dilated marina l to suggest obstruction. Bladder is normal. No free intraperitoneal gas or fluid. No pathologically enlarged abdominal or pelvic lymphadenopathy. Mild thoracolumbar dextro scoliosis. Moderate lumbar sp ondylosis. Moderate bilateral sacroiliitis. IMPRESSION: 1. Pneumomediastinum with small right hydropneumothorax. 2. New scattered bilateral nodular and patchy airspace opacities and favor pneumonia or organizing pn eumonia over malignancy. 3. Mild pulmonary edema at the bilateral lung bases and tiny left pleural effusion. 4. 8 cm segment of wall thickening at the distal sigmoid colon which could be due to a focal colitis either infectious or inflammatory in etiology or potentially colon cancer. Recommend colonoscopy for further evaluation. This along with the likely pneumonia and small right hydropneumothorax were discu ssed with Dr. Waggoner at 6:55 AM. 5. Cholelithiasis. 6. Moderate bilateral sacroiliitis. Reviewed, dictated and finalized at location A. N EXPORT COORDINATOR IMPRESSION: 1. Pneumomediastinum with small right hydropneumothorax. 2. New scattered bilateral nodular and patchy airspace opacities and favor pneu monia or organizing pneumonia over malignancy. 3. Mild pulmonary edema at the bilateral lung bases and tiny left pleural effus ion. 4. 8 cm segment of wall thickening at the distal sigmoid colon which could be d ue to a focal colitis either infectious or inflammatory in etiology or potentia lly colon cancer. Recommend colonoscopy for further evaluation. This along with the likely pneumonia and small right hydropneumothorax were discussed with Dr. Waggoner at 6:55 AM. 5. Cholelithiasis. 6. Moderate bilateral sacroiliitis.
--- NOTE | ~2022-09-14 | XR_ITS ---
EXAMINATION: XR chest 1V portable DATE: 09/16/2022 05:23 INDICATION: Right-sided hydropneumothorax. TECHNIQUE: frontal view of the chest was obtained. COMPARISON: Chest radiograph dated 09/15/22 FINDINGS: No significant interval change in a small right hydropneumothorax. There are scattered bilateral patc hy airspace opacities with interval increase in the lower lung zones. Small left pleural effusion. No left-sided pneumothorax.Heart size is normal. IMPRESSION: 1. Unchanged small right hydropneumothorax and small left pleural effusion. 2. Scattered bilateral patchy airspace opacities with interval increase in the bilateral lower lung z ones consistent with worsening pneumonia. Reviewed, dictated and finalized at location A. B DRIVER IMPRESSION: 1. Unchanged small right hydropneumothorax and small left pleural effusion. 2. Scattered bilateral patchy airspace opacities with interval increase in the bilateral lower lung zones consistent with worsening pneumonia.
--- NOTE | ~2022-09-14 | XR_ITS ---
EXAMINATION: XR chest 1V portable DATE: 09/20/2022 05:58 INDICATION: Pneumothorax TECHNIQUE: frontal view of the chest was obtained. COMPARISON: Chest radiograph dated 09/17/2022 and chest radiograph and CT dated 09/14/2022 FINDINGS: No significant change in a small right hydropneumothorax. Also without significant interval change or bilateral interstitial and airspace opacities throughout both lungs. No left-sided pneumothorax or p leural effusion. The cardiomediastinal silhouette is normal. IMPRESSION: 1. Unchanged small right hydropneumothorax. 2. Unchanged diffuse bilateral lung disease consistent with pneumonia superimposed over chronic lung disease. Reviewed, dictated and finalized at location A. IMPRESSION: 1. Unchanged small right hydropneumothorax. 2. Unchanged diffuse bilateral lung disease consistent with pneumonia superimpo sed over chronic lung disease.
--- NOTE | ~2022-09-14 | XR_ITS ---
EXAMINATION: XR barium swallow modified DATE: 09/15/2022 08:52 INDICATION: Aspiration. TECHNIQUE: The patient was given barium-containing material of multiple consistencies to swallow by t eyal speech pathologist while I performed fluoroscopy. Fluoroscopy exposure time was 2.3 minutes. The n umber of fluoroscopy images saved to the PACS was 1. Dose-area product was 1.314 Gy-cm^2. FINDINGS: There is reduced laryngeal elevation, reduced laryngeal adduction, reduced tongue base retraction, an d vallecular residue. There is laryngeal penetration and aspiration with thin liquids. IMPRESSION: 1. Laryngeal penetration and aspiration. 2. Please refer to the speech therapy report for recommendations. Reviewed, dictated and finalized at location A. [employer]
--- NOTE | ~2022-09-14 | XR_ITS ---
EXAMINATION: XR chest 1V portable DATE: 09/14/2022 04:06 INDICATION: Dyspnea TECHNIQUE: frontal view of the chest was obtained. COMPARISON: Chest radiograph dated 08/20/2022 FINDINGS: Small right hydropneumothorax with small pneumothorax confined to the upper lung zone and small pleur al effusion compatible with mild blunting of the right costophrenic angle. Small nodular and patchy a irspace opacities in both lungs which could represent pneumonia or metastatic disease. The cardiomedi astinal silhouette is normal. Multiple gas-filled but not frankly dilated loops of bowel in the upper abdomen. IMPRESSION: 1. Small right hydropneumothorax. 2. Nodular and patchy bilateral lung disease which could represent pneumonia or metastatic disease. Reviewed, dictated and finalized at location A. PMENT SERVICE ASSOCIATE
--- NOTE | 2022-09-14 03:49 | ECG_ITS ---
Measurements Intervals [place] Rate: 149 P: 65 [place]: 131 QRS: 14 QRSD: 86 T: 72 QT: 326 QTc: 514 Interpretive Statements ATRIAL FLUTTER/TACHYCARDIA WITH RAPID VENTRICULAR RESPONSE BORDERLINE ST-T WAVE ABNORMALITY- ANTEROLAT/HIGH LAT LEADS BASELINE ARTIFACT- I, II, III, AVR, AVL, AVF, V1-V6 ABNORMAL ECG COMPARED TO ECG 08/20/2022 10:14:40 ATRIAL FLUTTER/TACHYCARDIA NOW PRESENT Electronically Signed On 09-14-2022 6:27:52 [employer] by Eric Barnett D.O.
--- NOTE | 2022-09-14 04:00 | ED.GENADULT ---
HPI - General Adult General Chief complaint: Shortness of Breath/Dyspnea Stated complaint: sob Time Seen by Provider: 09/14/22 03:38 History of Present Illness HPI narrative: Patient 71-year-old gentleman who presents the emergency department with chief complaint of shortness of breath. Patient has history of COPD and was recently admitted to the hospital for dehydration hyponatremia and failure to thrive. After being discharged from the hospital the patient has apparently sat in a recliner for the last 10 days and has not gotten out of the recliner and has proceeded to urinate and defecate in the recliner until the family decided to call EMS today. History is limited from the patient as he is somewhat confused. Related Data Allergies Allergy/AdvReac Type Severity Reaction Status Date / Time No Known Allergies Allergy Verified 08/18/21 10:31 Review of Systems Review of Systems: A 10 system review of systems was completed on the patient and is negative except for what is stated in the HPI. Nursing and ancillary documentation was reviewed. [facility] Past Medical History Medical History Benign essential HTN History of tobacco abuse Hypertension Hypothyroidism Spondylosis Surgical History Surgical History History of appendectomy History of arthroscopic knee surgery Family History Family History Father , 87yrs old Cardiac arrest Social History Social History Social History: Surrogate medical decision maker: Eugene Casillas, son. Code status: Full code. Smoking packs per day: 1 Smoking cigarettes per day: 20.0 Smoking status: Former smoker Tobacco type: cigarettes Second hand tobacco smoke exposure: Yes Smoking end date: 08/20/09 Additional smoking assessment comments: Smoked here and there per son, maybe a couple a day Alcohol intake: never Substance use: never Substance use type: does not use Lack of Transportation: No Lack of Food: Never True Current Housing: I Have Housing Concerned About Future Housing: No Difficulty Paying Gas/Electric Bills: No Difficulty Paying for Meds: No Currently Unemployed: No Education: High School Diploma/GED Difficulty w/ Childcare or Family Care: No Additional living arrangements comments: Currently living with son Eugene. 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 Spiritual care concerns: No Exam Narrative: GENERAL: Well-appearing, well-nourished, mild to moderate respiratory distress, HEAD: Normocephalic, atraumatic. EYES: PERRLA and EOMI. ENT: Nares clear, no rhinorrhea or epistaxis. Dry membranes moist. NECK: Supple. CHEST: Moderate respiratory distress, increased tachypnea. HEART: Tachycardic rate and rhythm. No murmur heard. Normal peripheral pulses. ABDOMEN: Soft, nontender, nondistended, normal active bowel sounds. EXTREMITIES: Normal range of motion. No edema. SKIN: Warm, dry, no rash. NEURO: No focal deficits. Alert and oriented x3. PSYCH: Normal mood and affect. Course Vital Signs Vital signs: Vital Signs Temperature 37.0 C 09/14/22 03:39 Pulse Rate 150 H 09/14/22 03:39 Respiratory Rate 34 H 09/14/22 03:39 Blood Pressure 119/71 09/14/22 03:39 Pulse Oximetry 100 09/14/22 03:39 Oxygen Delivery Non-Rebreather Mask 09/14/22 03:39 Oxygen Flow Rate 15 09/14/22 03:39 Temperature 37.0 C 09/14/22 03:39 Pulse Rate 117 H 09/14/22 07:28 Respiratory Rate 22 H 09/14/22 07:28 Blood Pressure 98/64 L 09/14/22 07:28 Pulse Oximetry 97 09/14/22 07:28 Oxygen Delivery Nasal Cannula 09/14/22 05:54 Oxygen Flow Rate 2 09/14/22 05:54 Medical Decision Making [facility] Narrative [facility]
[2022-09-14 04:10] LABS: Basophils Absolute Auto 0.1 K/mm3 (0.0-0.1); Basophils Percent Auto 0.6 % (0.2-1.2); Eosinophils Absolute Auto 0.1 K/mm3 (0-0.3); Eosinophils Percent Auto 0.3 % (0-4.4); Hematocrit 34.8 % (42.0-52.0); Hemoglobin 11.4 g/dL (14.0-18.0); Immature Granulocyte Absolute 0.07 K/mm3 (0.00-0.031); Immature Granulocyte Percent A 0.4 % (0-0.5); Lymphocytes Absolute Auto 0.85 K/mm3 (0.9-3.2); Lymphocytes Percent Auto 4.7 % (18.3-44.2); Mean Corpuscular HGB Conc 32.8 g/dl (32-36); Mean Corpuscular Volume 94.6 fl (80-100); Mean Platelet Volume 9.3 fl (7.4-10.4); Monocytes Absolute Auto 0.6 K/mm3 (0.1-0.6); Monocytes Percent Auto 3.3 % (2.6-8.5); Neutrophils Absolute Auto 16.5 K/mm3 (1.3-6.7); Neutrophils Percent Auto 90.7 % (45.5-73.1); Platelet Count Result 270 k/mm3 (150-375); Red Blood Count 3.68 M/mm3 (4.6-6.20); Red Cell Distribution Width 15.8 % (11.5-14.5); White Blood Count 18.2 K/mm3 (4.5-10.0)
[2022-09-14 04:17] LABS: Lactic Acid Reflex 2.8 mmol/L (0.7-2.0)
[2022-09-14] MEDS: IPRATROPIUM BR 0.02% INH SOLN 0.5 MG/2.5 ML VIAL INHALATION ×4 (04:21→21:41)
[2022-09-14] MEDS: ALBUTEROL SULFATE NEB 2.5 MG/3 ML INH INHALATION ×4 (04:21→21:42)
[2022-09-14 04:25] LABS: Alanine Aminotransferase 22 U/L (6-50); Albumin Level 3.5 g/dL (3.5-5.1); Alkaline Phosphatase 106 U/L (38-126); Anion Gap 7 mmol/L (8-16); Aspartate Amino Transferase 45 U/L (17-59); Bilirubin,Total 1.1 mg/dL (0.2-1.3); Blood Urea Nitrogen 20 mg/dL (9-20); Calcium 8.5 mg/dL (8.4-10.2); Carbon Dioxide 31 mmol/L (22-30); Chloride 91 mmol/L (98-107); Estimated Glomerular Filt Rate > 60; Glucose 86 mg/dL (65-110); Magnesium 1.8 mg/dL (1.6-2.3); Sodium 129 mmol/L (137-145)
[2022-09-14 04:30] LABS: NT Pro B Type Natriuretic Pept 686 pg/mL (19.9-100); Troponin I < 0.012 ng/mL (0.000-0.034)
[2022-09-14] MEDS: SODIUM CHLORIDE 0.9% IV 1,000 ML 999 ML IV CONT ×2 (04:35→06:52)
[2022-09-14 04:43] LABS: Alveolar/Arterial O2 Gradient 449.3 mmHg; Base Excess ABG 5.5 mEq/l (+/-2.0); Fractional Inspired Oxygen 90 %; HCO3 ABG 28.7 mEq/l (22.0-26.0); Oxygen Content ABG 16.3 %vol (16.0-22.0); Oxygen Saturation ABG 99.2 % (95.0-100.0); Oxyhemoglobin 97.4 % THb (90.0-100.0); PCO2 ABG 36.7 mmHg (35.0-45.0); PO2 ABG 154.8 mmHg (80.0-100.0); PO2 FiO2 Ratio Arterial Blood 1.72 %; Total Hemoglobin 11.7 g/dL (12.0-18.0)
[2022-09-14 04:48] LABS: Site Drawn LEFT RADIAL; pH ABG 7.511 (7.350-7.450)
[2022-09-14 04:49] LABS: Modified Allen's Test Pass
[2022-09-14 04:52] LABS: Influenza A QL RT-PCR Negative (Negative); Influenza B QL RT-PCR Negative (Negative); RSV RNA, RT-PCR Negative (Negative); SARS-CoV-2 RNA PCR Negative
[2022-09-14] MEDS: MAGNESIUM SULF 2 GM/WATER 50ML 2 GM/50 ML BAG IVPB (06:51)
[2022-09-14 06:52] LABS: INR 1.4; Prothrombin Time 16.8 Seconds (11.1-14.7)
[2022-09-14 06:53] LABS: Partial Thromboplastin Time 27.2 SECONDS (22.3-36.8)
[2022-09-14 07:05] LABS: Reflex Lactic Acid Yes or No Add Lactic
[2022-09-14 07:08] LABS: Troponin I 0.023 ng/mL (0.000-0.034)
[2022-09-14 07:12] LABS: Procalcitonin 0.3 ng/mL
[2022-09-14 07:33] LABS: Creatine Kinase 56 U/L (55-170)
[2022-09-14 07:51] LABS: Lactic Acid 1.4 mmol/L (0.7-2.0)
[2022-09-14] MEDS: SODIUM CHLORIDE 0.9% IV 1,000 ML 125 ML IV CONT (08:29)
--- NOTE | 2022-09-14 10:05 | PM.CNGS ---
Assessment and Plan Assessment and plan (1) Hydropneumothorax: Code(s): J94.8 - Other specified pleural conditions Status: Acute Assessment and Plan: Small < 10% right hydropneumothorax noted on imaging. Small amount of pneumomediastinum. No history of pneumothorax in the past. Could be related to the coughing with the pneumonia and his COPD. No indication for chest tube placement at this time. Will continue to monitor with serial imaging and exams with a repeat chest x-ray in the morning. Will also add incentive spirometry. Discussed with the patient and his son that although he does not currently require a chest tube, this may be required if his pneumothorax enlarges. (2) Pneumonia: Code(s): J18.9 - Pneumonia, unspecified organism Status: Acute Assessment and Plan: Continue medical management and antibiotics per primary service. Also recommended to nursing to perform a swallow study prior to giving anything orally as it sounds like he has possibly been aspirating liquids at home. Consult speech if needed. (3) Sepsis: Code(s): A41.9 - Sepsis, unspecified organism Status: Acute Assessment and Plan: Criteria met on admission with leukocytosis, tachycardia, tachypnea on admission. Lactic acid 2.8 on admission and normalized after receiving IV fluids. Pneumonia vs parotitis vs combination. Continue broad-spectrum IV abx, IV fluids, and monitoring. Blood cx pending. (4) Parotitis: Code(s): K11.20 - Sialoadenitis, unspecified Status: Acute Assessment and Plan: Noted on exam, right side. Management per primary service. On IV Zosyn and vancomycin. (5) Adult failure to thrive: Code(s): R62.7 - Adult failure to thrive Status: Acute (6) Hypertension: Code(s): I10 - Essential (primary) hypertension Status: Acute (7) Acute exacerbation of chronic obstructive pulmonary disease: Code(s): J44.1 - Chronic obstructive pulmonary disease with (acute) exacerbation Status: Acute (8) Malnutrition: Code(s): E46 - Unspecified protein-calorie malnutrition Status: Acute (9) Hyponatremia: Code(s): E87.1 - Hypo-osmolality and hyponatremia Status: Acute Plan I have discussed the patient's case and plan of care with Dr. Harper. Thank you for allowing us to see the patient in consultation and we will continue to follow along with you. History of Present Illness Consult details Consult date: 09/14/22 Reason for consult: other (Right hydropneumothorax) Requesting physician: Frank Waggoner MD Narrative: This is a 71-year-old man with a history of emphysema, hypertension, and hypothyroidism who we have been asked to see in consultation for a small right hydropneumothorax. He was recently admitted from 08/20/22 - 08/25/22 for hyponatremia, malnutrition, failure to thrive, and anemia. He was discharged back home where he lives with his son. He reportedly was only taking in some liquids and Ensure for nutrition. He reports coughing after drinking any liquids and feeling like he was choking on thin liquids frequently. He then developed a productive cough with yellow sputum. This became progressively more productive. He also reports noticing swelling and tenderness to the right side of his face and jaw since being discharged. He became progressively more weak again at home and was not tolerating much oral intake. Over the past 10 days, he had not left the recliner even to defecate and urinate. He started having shortness of breath over the weekend that became severe last night. This is the main reason the family called EMS to take him to the ER for evaluation. Chest x-ray in the ER showed a small right hydropneumothorax and nodular and patchy bilateral lung disease that could represent pneumonia or metastatic disease. CT chest/abdomen/pelvis showed small amount of pneumomediastinum with small right hydropneumothorax, new scattered
--- NOTE | 2022-09-14 10:54 | ADMIMU ---
This patient, Gunner Casillas, was admitted to IMU status, and placed in IMU Room 212-01. Patient/family oriented to hospital policies and general routines including ID bracelet, bed and alarms, visiting hours, pain management, procedures, bathroom and other care routines, personal items, smoking policy, room service/diet, and visiting hours. Valuables list has been completed. Information on how to activate the Rapid Response Team has been discussed. Patient/Family are encouraged to report perceived risks to care and to ask questions if they do not understand what they are told or what they should do.
--- NOTE | 2022-09-14 13:35 | PCSTNOTE ---
Please refer to the Bedside Swallow Evaluation in the EMR. Please note, silent aspiration cannot be ruled out at bedside.
--- NOTE | 2022-09-14 13:50 | PM.IMHP ---
H&P: HPI History of Present Illness Date/Time: 09/14/22 13:50 Chief Complaint: Shortness of breath. Narrative: This is a pleasant 71-year-old male with hypertension and chronic hyponatremia who presented to the emergency department via EMS for evaluation of shortness of breath. He is known to myself and the hospitalist service from a recent admission from August 20 through the in which he was admitted with failure to thrive, malnutrition, and hyponatremia after presenting with weakness. Prior to that admission he had been staying with 1 of his sons for a couple of weeks after it was discovered that he was living in unsanitary conditions, was not able to properly care for himself, and it came to light that he almost never moved out of his recliner. He improved with treatment and was discharged home with home health however it is my understanding that they have only visited handful of times and son state he is not entirely cooperative or compliant with therapy. It is my understanding that he has not left his recliner for the last 1.5 weeks and he was found soiled in urine and stool. He reports being too weak to stand up and says he cannot even stand to pivot to a commode. He does not feel any more weak than baseline and denies focal weakness, paresthesias, facial droop, visual changes, difficulty speaking. He has ongoing issues with dysphagia which is not new. He attributes his weakness to not being able to eat much due to the dysphagia. On occasion he thinks he aspirates small amounts. He does cough though it has not been productive. Son thought he appeared more short of breath than baseline today and called 911. He denies fever, chills, sweats, sinus congestion, sore throat, chest pain, pleuritic pain, sensations of racing heart, palpitations, shortness a breath, abdominal pain, diarrhea, diarrhea, and edema. On arrival to the emergency department he was tachycardic in the 150s an EKG showed atrial flutter/tachycardia. He was also hypoxic and seemed somewhat short of breath. CT of the chest, abdomen, and pelvis showed a small amount of pneumomediastinum with small right hydropneumothorax, new scattered bilateral nodular and patchy airspace opacities which are likely infectious, an 8 cm segment of wall thickening at the distal sigmoid colon. He was started on antibiotics and is being admitted in this setting for further treatment and evaluation. Review of Systems Review of Systems: Twelve systems were reviewed and are negative except for as per HPI. [facility] Past Medical History Medical History (Updated 09/14/22 @ 14:02 by Samara Gonzalez PA-C) Chronic hyponatremia Emphysema lung History of tobacco abuse Hypertension Hypothyroidism Spondylosis Surgical History Surgical History (Updated 09/14/22 @ 13:55 by Samara Gonzalez PA-C) History of appendectomy History of arthroscopic knee surgery History of colonoscopy (08/2021) AV malformations. Benign colon polyp (tubular adenoma). Internal hemorrhoids. Family History Family History Father , 87yrs old Cardiac arrest Social History Social History (Updated 09/14/22 @ 13:56 by Samara Gonzalez PA-C) Social History: Surrogate medical decision maker: Eugene Casillas, son. Code status: Full code. Smoking packs per day: 1 Smoking cigarettes per day: 20.0 Smoking status: Former smoker Tobacco type: cigarettes Second hand tobacco smoke exposure: Yes Smoking end date: 07/12/16 Additional smoking assessment comments: Smoked here and there, maybe a couple a day. Alcohol intake: never Substance use: never Substance use type: does not use Lack of Transportation: No Lack of Food: Never True Current Housing: I Do Not Have Housing Concerned About Future Housing: No Difficulty Paying Gas/Electric Bills: No Difficulty Paying for Meds: No Currently Unemployed: No Education: High School D
[2022-09-14 16:11] LABS: Anion Gap 3 mmol/L (8-16); Blood Urea Nitrogen 14 mg/dL (9-20); Calcium 7.3 mg/dL (8.4-10.2); Carbon Dioxide 32 mmol/L (22-30); Chloride 100 mmol/L (98-107); Estimated CRCL calculation 81 ml/min; Estimated Glomerular Filt Rate > 60; Glucose 80 mg/dL (65-110); Potassium 3.3 mmol/L (3.4-5.0); Sodium 135 mmol/L (137-145)
[2022-09-14] MEDS: SODIUM CHLORIDE 500 MG TABLET PO (16:52)
[2022-09-14 19:53] LABS: Glucose Point of Care 76 mg/dl (65-105)
[2022-09-15] VITALS (23 sets, daily range): BP systolic 90–105; BP diastolic 44–55; PULSE 84–124; RESP 16–24; TEMP 36.1–36.7; O2SAT 94–100; BMI 18.9
[2022-09-15] MEDS: KCL 20 MEQ/SW 100 ML 100 ML 50 MEQ IVPB (01:04)
[2022-09-15] MEDS: ALBUTEROL SULFATE NEB 2.5 MG/3 ML INH INHALATION ×4 (02:40→20:35)
[2022-09-15] MEDS: IPRATROPIUM BR 0.02% INH SOLN 0.5 MG/2.5 ML VIAL INHALATION ×4 (02:41→20:34)
[2022-09-15 04:51] LABS: Hemoglobin 8.5 g/dL (14.0-18.0); Mean Corpuscular HGB Conc 32.7 g/dl (32-36); Mean Corpuscular Hemoglobin 30.6 pg (26-34); Mean Corpuscular Volume 93.5 fl (80-100); Mean Platelet Volume 8.9 fl (7.4-10.4); Platelet Count Result 189 k/mm3 (150-375); Red Blood Count 2.78 M/mm3 (4.6-6.20); Red Cell Distribution Width 15.6 % (11.5-14.5)
[2022-09-15 05:05] LABS: Alanine Aminotransferase 16 U/L (6-50); Albumin Level 2.5 g/dL (3.5-5.1); Alkaline Phosphatase 77 U/L (38-126); Anion Gap 1 mmol/L (8-16); Aspartate Amino Transferase 26 U/L (17-59); Bilirubin,Total 0.7 mg/dL (0.2-1.3); Blood Urea Nitrogen 12 mg/dL (9-20); Calcium 7.7 mg/dL (8.4-10.2); Carbon Dioxide 33 mmol/L (22-30); Chloride 98 mmol/L (98-107); Estimated CRCL calculation 80 ml/min; Estimated Glomerular Filt Rate > 60; Glucose 82 mg/dL (65-110); Sodium 132 mmol/L (137-145)
[2022-09-15] MEDS: SODIUM CHLORIDE 500 MG TABLET PO ×2 (10:13→17:49)
[2022-09-15] MEDS: POTASSIUM CHLORIDE 20 MEQ PACKET (FOR LIQUID) 40 MEQ PO (10:15)
--- NOTE | 2022-09-15 10:19 | PM.PNGS ---
Progress Note: A&P Assessment and Plan (1) Hydropneumothorax: Code(s): J94.8 - Other specified pleural conditions Status: Acute Assessment and Plan: CXR this morning unchanged with stable small < 10% R hydropneumothorax. Clinically improved, continue monitoring. No indication for any surgical intervention or chest tube at this time. Will sign off at this point. Call with any surgical questions/concerns. (2) Pneumonia: Code(s): J18.9 - Pneumonia, unspecified organism Status: Acute Assessment and Plan: Continue abx and medical management per primary service (3) Sepsis: Code(s): A41.9 - Sepsis, unspecified organism Status: Acute Assessment and Plan: Continue medical management per primary service Plan I have discussed the patient's case and plan of care with Dr. Harper. Subjective Subjective Date/Time Seen: 09/15/22 10:19 Patient reports: no new complaints and feels better Interval history: Patient seen this morning. Denies any acute changes overnight. Reports his dyspnea continues to improve. Denies any chest pain. Review of Systems Review of Systems: ROS unchanged Exam Const: General: no acute distress and awake Nutritional Appearance: malnourished and thin Orientation/consciousness: patient oriented x3 Resp: Effort & Inspection: normal respiratory effort Auscultation: crackles and other (R upper ant slightly more diminished than L) Cardio: Rate: tachycardic (mild) Rhythm: regular rhythm Objective Data Vital Signs Vital Signs: Vital Signs - 24 hr 09/14/22 11:56 09/14/22 12:00 09/14/22 14:00 Temperature 97.8 F Pulse Rate 98 98 94 Respiratory Rate 24 H Blood Pressure 95/51 L Pulse Oximetry 99 Oxygen Delivery Oxygen Flow Rate 09/14/22 14:41 09/14/22 14:53 09/14/22 16:00 Temperature 98.2 F Pulse Rate 98 97 100 Respiratory Rate 20 20 24 H Blood Pressure 91/47 L Pulse Oximetry 100 Oxygen Delivery Oxygen Flow Rate 09/14/22 16:00 09/14/22 18:00 09/14/22 20:00 Temperature 97.3 F L Pulse Rate 96 101 H 96 Respiratory Rate 18 Blood Pressure 89/55 L Pulse Oximetry 100 Oxygen Delivery Oxygen Flow Rate 09/14/22 21:42 09/14/22 21:43 09/14/22 22:00 Temperature Pulse Rate 88 88 107 H Respiratory Rate 20 20 Blood Pressure Pulse Oximetry 99 Oxygen Delivery Nasal Cannula Oxygen Flow Rate 2 09/14/22 20:00 09/14/22 22:00 09/15/22 00:00 Temperature 97.3 F L 97.1 F L Pulse Rate 96 90 101 H Respiratory Rate 18 20 20 Blood Pressure 89/55 L 91/55 L Pulse Oximetry 100 100 Oxygen Delivery Oxygen Flow Rate 09/15/22 02:41 09/15/22 02:51 09/15/22 00:00 Temperature Pulse Rate 105 H 106 H 102 H Respiratory Rate 20 23 H Blood Pressure Pulse Oximetry Oxygen Delivery Oxygen Flow Rate 09/15/22 02:00 09/15/22 04:43 09/15/22 04:00 Temperature 96.9 F L Pulse Rate 107 H 106 H 105 H Respiratory Rate 16 Blood Pressure 100/48 L Pulse Oximetry 99 Oxygen Delivery Oxygen Flow Rate 09/15/22 07:15 09/15/22 07:15 09/15/22 07:25 Temperature Pulse Rate 103 H 103 H 102 H Respiratory Rate 20 20 20 Blood Pressure Pulse Oximetry 99 Oxygen Delivery Nasal Cannula Oxygen Flow Rate 2 09/15/22 08:00 Temperature 97.5 F L Pulse Rate 107 H Respiratory Rate 20 Blood Pressure 105/44 L Pulse Oximetry 100 Oxygen Delivery Oxygen Flow Rate Intake/Output Intake/Output: Intake & Output 09/12/22 09/13/22 09/14/22 09/15/22 23:59 23:59 23:59 23:59 Intake Total 2450 130 Output Total 515 Balance 1935 130 Meds/Results Medications: Active Medications Generic Name Dose Route Start Last Admin Trade Name Freq PRN Reason Stop Dose Admin Albuterol 2.5 mg 09/14/22 08:00 09/15/22 07:15 Albuterol Sulfate Neb 2.5 Mg/3 Ml Inh INHALATION 2.5 mg Q6HRT BIN Administration Vancomycin HCl 1,250 mg in 250 mls @ 166.66
--- NOTE | 2022-09-15 10:29 | PM.IMPN ---
Progress Note: A&P Assessment and Plan (1) Sepsis: Code(s): A41.9 - Sepsis, unspecified organism Status: Acute Assessment and Plan: Patient was afebrile on arrival but does technically meet sepsis criteria with tachycardia, tachypnea, leukocytosis, and elevated lactic acid level in the setting of pneumonia. He received IV fluids in the ED with normalization of his lactic acid level. Blood cultures have been obtained. He was started on Zosyn for possible aspiration pneumonia given reports of dysphagia in addition to vancomycin given findings of right parotiditis. He was negative for COVID and influenza. Sputum to be attempted for culture. Check urinary antigens. (2) Hypoxia: Code(s): R09.02 - Hypoxemia Status: Acute Assessment and Plan: The patient presented to the emergency department via EMS for shortness of breath. He was hypoxic on EMS arrival and he is currently on 2 L nasal cannula maintaining his SpO2 in the mid to upper 90s. CT of the chest shows pneumomediastinum small right hydro pneumothorax. He is scattered bilateral nodular and patchy SPEP air space opacities probably pneumonia. Does have dysphagia noted by speech therapy today. He did penetrate on thin liquids so he was switched to a minced and moist diet with mildly thickened liquids. Continue Zosyn for possible aspiration pneumonia. Wean oxygen as tolerated. Continue nebulizer treatments. (3) Dysphagia: Code(s): R13.10 - Dysphagia, unspecified Status: Acute Assessment and Plan: As above. Speech therapy to continue to follow. (4) Pneumonia: Code(s): J18.9 - Pneumonia, unspecified organism Status: Acute Assessment and Plan: As above. Continue IV antibiotics. Continue nebulizer treatments. (5) Parotitis: Code(s): K11.20 - Sialoadenitis, unspecified Status: Acute Assessment and Plan: Overall symptoms are better with antibiotics. Recommend lemon drops. (6) Atrial tachycardia: Code(s): I47.1 - Supraventricular tachycardia Status: Acute Assessment and Plan: EKG on admission showed atrial flutter/tachycardia with a heart rate of 149. EKG reviewed personally. Patient has visible P-waves and does not appear to be flutter. Suspect this was sinus tachycardia. Continue to monitor on telemetry. Recent TSH was 5.5. (7) Colon wall thickening: Code(s): K63.9 - Disease of intestine, unspecified Status: Acute Assessment and Plan: CT scan does show an 8 cm segment of wall thicken the distal sigmoid colon consistent with either focal colitis or potentially neoplasm. Will defer further evaluation at this time until patient is more stable. Check CEA. Check stool guaiac (8) Hydropneumothorax: Code(s): J94.8 - Other specified pleural conditions Status: Acute Assessment and Plan: Regarding the pneumomediastinum and hydrothorax, these are small and are being watched closely by General surgery who does not feel that a chest tube is indicated at this juncture. Oxygen will be weaned as tolerated. Follow (9) Failure to thrive: Status: Acute Assessment and Plan: Chronic issue. Encourage oral intake with the above diet changes. (10) Chronic hyponatremia: Code(s): E87.1 - Hypo-osmolality and hyponatremia Status: Acute Assessment and Plan: Sodium 132 today. Continue sodium tablets. Continue to follow. Subjective Date/time seen: 09/15/22 10:29 Interval history: 71yo male with HTN, chronic hyponatremia and emphysema her for shortness of breath. Patient denies shortness of breath. Does not wear oxygen at home. Quit tobacco in 2017. No chest pain. He has a nonproductive cough. His weak cough. States that after he left here in mid August, he was having multiple bowel movements but not alison diarrhea. He states due to this, he had decreased appetite. Was
--- NOTE | 2022-09-15 11:10 | PCSTNOTE ---
Please refer to the Modified Barium Swallow Evaluation in the EMR.
[2022-09-15] MEDS: ACETAMINOPHEN 325 MG TABLET 650 MG PO (12:29)
[2022-09-15] MEDS: PIPERACILLN/TAZ 3.375GM/NS50ML 3.375 GM/50 ML BAG IVPB ×2 (17:47→23:59)
[2022-09-15] MEDS: LEVALBUTEROL NEB 1.25 MG/3 ML (18:10)
[2022-09-15 20:48] LABS: Vancomycin Trough 23.6 ug/mL (10.0-20.0)
[2022-09-16] VITALS (24 sets, daily range): BP systolic 88–114; BP diastolic 51–59; PULSE 65–118; RESP 18–26; TEMP 36.2–36.6; O2SAT 91–100
[2022-09-16] MEDS: IPRATROPIUM BR 0.02% INH SOLN 0.5 MG/2.5 ML VIAL INHALATION ×4 (02:40→20:51)
[2022-09-16] MEDS: ALBUTEROL SULFATE NEB 2.5 MG/3 ML INH INHALATION ×4 (02:40→20:51)
[2022-09-16 05:30] LABS: Basophils Percent Auto 0.3 % (0.2-1.2); Eosinophils Absolute Auto 0.1 K/mm3 (0-0.3); Eosinophils Percent Auto 0.5 % (0-4.4); Hematocrit 28.1 % (42.0-52.0); Hemoglobin 8.9 g/dL (14.0-18.0); Immature Granulocyte Absolute 0.06 K/mm3 (0.00-0.031); Immature Granulocyte Percent A 0.5 % (0-0.5); Lymphocytes Absolute Auto 0.77 K/mm3 (0.9-3.2); Lymphocytes Percent Auto 6.7 % (18.3-44.2); Mean Corpuscular HGB Conc 31.7 g/dl (32-36); Mean Corpuscular Hemoglobin 30.2 pg (26-34); Mean Corpuscular Volume 95.3 fl (80-100); Mean Platelet Volume 8.9 fl (7.4-10.4); Monocytes Absolute Auto 0.5 K/mm3 (0.1-0.6); Monocytes Percent Auto 4.7 % (2.6-8.5); Neutrophils Percent Auto 87.3 % (45.5-73.1); Platelet Count Result 173 k/mm3 (150-375); Red Blood Count 2.95 M/mm3 (4.6-6.20); Red Cell Distribution Width 15.9 % (11.5-14.5); White Blood Count 11.5 K/mm3 (4.5-10.0)
[2022-09-16 05:52] LABS: Albumin Level 2.6 g/dL (3.5-5.1); Anion Gap 1 mmol/L (8-16); Blood Urea Nitrogen 18 mg/dL (9-20); Calcium 7.8 mg/dL (8.4-10.2); Carbon Dioxide 33 mmol/L (22-30); Chloride 99 mmol/L (98-107); Estimated CRCL calculation 50 ml/min; Estimated Glomerular Filt Rate > 60; Glucose 85 mg/dL (65-110); Magnesium 1.9 mg/dL (1.6-2.3); Phosphorus 2.9 mg/dL (2.5-4.5); Potassium 3.2 mmol/L (3.4-5.0); Sodium 133 mmol/L (137-145)
[2022-09-16 06:13] LABS: Carcinoembryonic Antigen 0.6 ng/mL (0.0-3.0)
[2022-09-16] MEDS: PIPERACILLN/TAZ 3.375GM/NS50ML 3.375 GM/50 ML BAG IVPB ×3 (06:43→18:14)
--- NOTE | 2022-09-16 09:11 | P.CDI_ITS ---
CDI Query Clarified Diagnosis Clarified Diagnosis: BMI 18.9 Nutritional Diagnostic Statement Severe protein calorie malnutrition related to inadequate protein energy intake with increased protein energy needs in the setting of chronic disease as evidence by poor PO intake over 1 Month. -15% weight loss in 1 month, and severe subcutaneous fat loss and muscle wasting as noted in NFPE Please refer to the Nutritional assessment for more information. Please clarify the severity of protein calorie malnutrition if known. * Mild * Moderate * Severe * Other/ Unspecified
[2022-09-16] MEDS: SODIUM CHLORIDE 500 MG TABLET PO ×2 (09:29→18:14)
[2022-09-16] MEDS: ACETAMINOPHEN 325 MG TABLET 650 MG PO (09:29)
[2022-09-16] MEDS: POTASSIUM CHLORIDE 20 MEQ PACKET (FOR LIQUID) 40 MEQ PO (09:30)
[2022-09-16 12:48] LABS: IFOB Positive Control Positive; Immunochemical Fecal Occult Bl Negative (N)
--- NOTE | 2022-09-16 16:58 | PM.IMPN ---
Progress Note: A&P Assessment and Plan (1) Sepsis: Code(s): A41.9 - Sepsis, unspecified organism Status: Acute Assessment and Plan: Patient was afebrile on arrival but does technically meet sepsis criteria with tachycardia, tachypnea, leukocytosis, and elevated lactic acid level in the setting of pneumonia. He received IV fluids in the ED with normalization of his lactic acid level. Blood cultures have been obtained. He was started on Zosyn for possible aspiration pneumonia given reports of dysphagia in addition to vancomycin given findings of right parotiditis. He was negative for COVID and influenza. Sputum to be attempted for culture. Check urinary antigens which is pending. (2) Hypoxia: Code(s): R09.02 - Hypoxemia Status: Acute Assessment and Plan: The patient presented to the emergency department via EMS for shortness of breath. He was hypoxic on EMS arrival and he is currently on 2 L nasal cannula maintaining his SpO2 in the mid to upper 90s. CT of the chest shows pneumomediastinum small right hydro pneumothorax. He is scattered bilateral nodular and patchy SPEP air space opacities probably pneumonia. Does have dysphagia noted by speech therapy today. He did penetrate on thin liquids so he was switched to a minced and moist diet with mildly thickened liquids. Continue Zosyn for possible aspiration pneumonia. Wean oxygen as tolerated. Continue nebulizer treatments. (3) Dysphagia: Code(s): R13.10 - Dysphagia, unspecified Status: Acute Assessment and Plan: As above. Speech therapy to continue to follow. (4) Pneumonia: Code(s): J18.9 - Pneumonia, unspecified organism Status: Acute Assessment and Plan: As above. Continue IV antibiotics. Continue nebulizer treatments. (5) Parotitis: Code(s): K11.20 - Sialoadenitis, unspecified Status: Acute Assessment and Plan: Overall symptoms are better with antibiotics. Recommend lemon drops. (6) Atrial tachycardia: Code(s): I47.1 - Supraventricular tachycardia Status: Acute Assessment and Plan: EKG on admission showed atrial flutter/tachycardia with a heart rate of 149. EKG reviewed personally. Patient has visible P-waves and does not appear to be flutter. Suspect this was sinus tachycardia. Continue to monitor on telemetry. Recent TSH was 5.5. (7) Colon wall thickening: Code(s): K63.9 - Disease of intestine, unspecified Status: Acute Assessment and Plan: CT scan does show an 8 cm segment of wall thicken the distal sigmoid colon consistent with either focal colitis or potentially neoplasm. Will defer further evaluation at this time until patient is more stable. CEA is normal. stool guaiac test is negative (8) Hydropneumothorax: Code(s): J94.8 - Other specified pleural conditions Status: Acute Assessment and Plan: Regarding the pneumomediastinum and hydrothorax, these are small and are being watched closely by General surgery who does not feel that a chest tube is indicated at this juncture. Oxygen will be weaned as tolerated. Follow (9) Failure to thrive: Status: Acute Assessment and Plan: Chronic issue. Encourage oral intake with the above diet changes. (10) Chronic hyponatremia: Code(s): E87.1 - Hypo-osmolality and hyponatremia Status: Acute Assessment and Plan: Sodium 132 today. Continue sodium tablets. Continue to follow. Subjective Date/time seen: 09/16/22 16:58 Interval history: 71yo male with HTN, chronic hyponatremia and emphysema her for shortness of breath. He reports he is feeling better he has a little bit of cough and difficulty coughing out. Denies shortness of breath. Review of Systems Review of Systems: All systems reviewed & are unremarkable except as noted in HPI and below Exam Narrative: Gen Carlton HENDRICKS lying semi-recumbent
[2022-09-17] VITALS (19 sets, daily range): BP systolic 95–102; BP diastolic 50–62; PULSE 72–131; RESP 14–32; TEMP 35.8–36.8; O2SAT 82–100
[2022-09-17] MEDS: PIPERACILLN/TAZ 3.375GM/NS50ML 3.375 GM/50 ML BAG IVPB ×5 (00:50→23:43)
[2022-09-17] MEDS: IPRATROPIUM BR 0.02% INH SOLN 0.5 MG/2.5 ML VIAL INHALATION ×4 (02:28→20:09)
[2022-09-17] MEDS: ALBUTEROL SULFATE NEB 2.5 MG/3 ML INH INHALATION ×4 (02:28→20:08)
[2022-09-17 05:03] LABS: Basophils Percent Auto 0.3 % (0.2-1.2); Eosinophils Absolute Auto 0.2 K/mm3 (0-0.3); Eosinophils Percent Auto 1.8 % (0-4.4); Hemoglobin 9.3 g/dL (14.0-18.0); Immature Granulocyte Absolute 0.04 K/mm3 (0.00-0.031); Immature Granulocyte Percent A 0.4 % (0-0.5); Lymphocytes Absolute Auto 1.14 K/mm3 (0.9-3.2); Lymphocytes Percent Auto 12.8 % (18.3-44.2); Mean Corpuscular HGB Conc 32.1 g/dl (32-36); Mean Corpuscular Hemoglobin 30.5 pg (26-34); Mean Corpuscular Volume 95.1 fl (80-100); Mean Platelet Volume 8.7 fl (7.4-10.4); Monocytes Absolute Auto 0.5 K/mm3 (0.1-0.6); Monocytes Percent Auto 5.8 % (2.6-8.5); Neutrophils Percent Auto 78.9 % (45.5-73.1); Platelet Count Result 148 k/mm3 (150-375); Red Blood Count 3.05 M/mm3 (4.6-6.20); Red Cell Distribution Width 15.8 % (11.5-14.5); White Blood Count 8.9 K/mm3 (4.5-10.0)
[2022-09-17 05:16] LABS: Alanine Aminotransferase 15 U/L (6-50); Albumin Level 2.5 g/dL (3.5-5.1); Alkaline Phosphatase 73 U/L (38-126); Anion Gap 0 mmol/L (8-16); Aspartate Amino Transferase 32 U/L (17-59); Bilirubin,Total 0.5 mg/dL (0.2-1.3); Blood Urea Nitrogen 22 mg/dL (9-20); Calcium 7.8 mg/dL (8.4-10.2); Carbon Dioxide 33 mmol/L (22-30); Chloride 99 mmol/L (98-107); Estimated CRCL calculation 55 ml/min; Estimated Glomerular Filt Rate > 60; Glucose 82 mg/dL (65-110); Magnesium 1.8 mg/dL (1.6-2.3); Potassium 3.3 mmol/L (3.4-5.0); Sodium 132 mmol/L (137-145)
[2022-09-17 05:50] LABS: Vancomycin Trough 22.3 ug/mL (10.0-20.0)
[2022-09-17] MEDS: POTASSIUM CHLORIDE 20 MEQ PACKET (FOR LIQUID) 40 MEQ PO (09:28)
[2022-09-17] MEDS: SODIUM CHLORIDE 500 MG TABLET PO ×2 (09:30→18:45)
--- NOTE | 2022-09-17 10:17 | PM.IMPN ---
Progress Note: A&P Assessment and Plan (1) Sepsis: Code(s): A41.9 - Sepsis, unspecified organism Status: Acute Assessment and Plan: Patient was afebrile on arrival but does technically meet sepsis criteria with tachycardia, tachypnea, leukocytosis, and elevated lactic acid level in the setting of pneumonia. He received IV fluids in the ED with normalization of his lactic acid level. Blood cultures have been obtained. He was started on Zosyn for possible aspiration pneumonia given reports of dysphagia in addition to vancomycin given findings of right parotiditis. He was negative for COVID and influenza. Sputum to be attempted for culture. Check urinary antigens which is pending. Currently on vancomycin and Zosyn (2) Hypoxia: Code(s): R09.02 - Hypoxemia Status: Acute Assessment and Plan: The patient presented to the emergency department via EMS for shortness of breath. He was hypoxic on EMS arrival and he is currently on 2 L nasal cannula maintaining his SpO2 in the mid to upper 90s. CT of the chest shows pneumomediastinum small right hydro pneumothorax. He is scattered bilateral nodular and patchy SPEP air space opacities probably pneumonia. Does have dysphagia noted by speech therapy today. He did penetrate on thin liquids so he was switched to a minced and moist diet with mildly thickened liquids. Continue Zosyn for possible aspiration pneumonia. Wean oxygen as tolerated. Continue nebulizer treatments. Hypoxemia worsened today was taken off oxygen 09/16/2022. Continue bronchodilators and antibiotics. Chest x-ray stable findings 09/17/2022 (3) Dysphagia: Code(s): R13.10 - Dysphagia, unspecified Status: Acute Assessment and Plan: As above. Speech therapy to continue to follow. (4) Pneumonia: Code(s): J18.9 - Pneumonia, unspecified organism Status: Acute Assessment and Plan: As above. Continue IV antibiotics. Continue nebulizer treatments. (5) Parotitis: Code(s): K11.20 - Sialoadenitis, unspecified Status: Acute Assessment and Plan: Overall symptoms are better with antibiotics. Recommend lemon drops. (6) Atrial tachycardia: Code(s): I47.1 - Supraventricular tachycardia Status: Acute Assessment and Plan: EKG on admission showed atrial flutter/tachycardia with a heart rate of 149. EKG reviewed personally. Patient has visible P-waves and does not appear to be flutter. Suspect this was sinus tachycardia. Continue to monitor on telemetry. Recent TSH was 5.5. Will add beta-ward as tolerated (7) Colon wall thickening: Code(s): K63.9 - Disease of intestine, unspecified Status: Acute Assessment and Plan: CT scan does show an 8 cm segment of wall thicken the distal sigmoid colon consistent with either focal colitis or potentially neoplasm. Will defer further evaluation at this time until patient is more stable. CEA is normal. stool guaiac test is negative (8) Hydropneumothorax: Code(s): J94.8 - Other specified pleural conditions Status: Acute Assessment and Plan: Regarding the pneumomediastinum and hydrothorax, these are small and are being watched closely by General surgery who does not feel that a chest tube is indicated at this juncture. Oxygen will be weaned as tolerated. Follow (9) Failure to thrive: Status: Acute Assessment and Plan: Chronic issue. Encourage oral intake with the above diet changes. (10) Chronic hyponatremia: Code(s): E87.1 - Hypo-osmolality and hyponatremia Status: Acute Assessment and Plan: Sodium 132 today. Continue sodium tablets. Continue to follow. Subjective Date/time seen: 09/17/22 10:17 Interval history: 71yo male with HTN, chronic hyponatremia and emphysema her for shortness of breath. He reports he is feeling better he has a little bit of cough and difficulty coug
[2022-09-17] MEDS: METOPROLOL TARTRATE 6.25 MG TABLET PO ×2 (12:13→20:51)
--- NOTE | 2022-09-17 12:14 | PCNFU ---
Nutrition Follow-Up Complete: Severe protein calorie malnutrition related to inadequate protein energy intake with increased protein energy needs in the setting of chronic diesease as evidenced by poor po intake over 1 month, -15% wt loss in 1 month, and severe subcutaneous fat loss and muscle wasting as noted in NFPE. goal: PO intake greater than 50% of meals and supplements Patient has limited progress towards goal. We will continue current goal. Pt current nutrition is Heart Healthy/Minced and Moist, Level 5 with Mild Thick liquids, Level 2. Last recorded weight is 58 kg. Bowel Motility: +BM reported / Labs Reviewed:K 3.3,Na 132, Alb 2.5,Hct 29.0,Hgb 9.3 Meds Noted:Zofran,Lopressor, Vancomycin, Zosyn, Atrovent Skin:Deep Tissue PU to L and R hips, L and R ischium Additional Notes: Nutrition follow up today. Patient had lunch tray present. He did drink all the George and working on Ensure compact and coffee. No solids consumed for lunch. Overall intake has been 10-25% of meals. PO intake encouraged. Agree with diet supplement of George for wound healing providing 90 kcals and 2.5 gms protein and Ensure compact TID providing additional 2290 kcals and 9 gms protein. Monitor intake, wt, labs. Follow up in 5 days.
--- NOTE | 2022-09-17 12:56 | PCOTNOTE ---
Attempted to see patient this pm, however patient refused. BAD TIMING! BAD TIMING! This morning I tried to get up in the chair, and I had an oxygen emergency. Luckily the vicky was here to give me a breathing treatment, and he said, Skip that, I'll put you on 3L oxygen. Then he called the doctor. He probably saved my life! Ever since I haven't felt good. Pt refused activity at this time. Maybe tomorrow.
[2022-09-18] VITALS (20 sets, daily range): BP systolic 95–112; BP diastolic 51–64; PULSE 77–113; RESP 16–24; TEMP 36.2–36.7; O2SAT 91–100
[2022-09-18 05:01] LABS: Basophils Percent Auto 0.3 % (0.2-1.2); Eosinophils Absolute Auto 0.2 K/mm3 (0-0.3); Eosinophils Percent Auto 2.7 % (0-4.4); Hematocrit 28.6 % (42.0-52.0); Immature Granulocyte Absolute 0.04 K/mm3 (0.00-0.031); Immature Granulocyte Percent A 0.5 % (0-0.5); Lymphocytes Absolute Auto 1.28 K/mm3 (0.9-3.2); Lymphocytes Percent Auto 16.5 % (18.3-44.2); Mean Corpuscular HGB Conc 31.5 g/dl (32-36); Mean Corpuscular Hemoglobin 30.1 pg (26-34); Mean Corpuscular Volume 95.7 fl (80-100); Mean Platelet Volume 8.6 fl (7.4-10.4); Monocytes Absolute Auto 0.7 K/mm3 (0.1-0.6); Monocytes Percent Auto 8.5 % (2.6-8.5); Neutrophils Absolute Auto 5.5 K/mm3 (1.3-6.7); Neutrophils Percent Auto 71.5 % (45.5-73.1); Platelet Count Result 147 k/mm3 (150-375); Red Blood Count 2.99 M/mm3 (4.6-6.20); Red Cell Distribution Width 15.7 % (11.5-14.5); White Blood Count 7.7 K/mm3 (4.5-10.0)
[2022-09-18 05:15] LABS: Alanine Aminotransferase 15 U/L (6-50); Albumin Level 2.3 g/dL (3.5-5.1); Alkaline Phosphatase 75 U/L (38-126); Anion Gap -1 mmol/L (8-16); Aspartate Amino Transferase 39 U/L (17-59); Bilirubin,Total 0.5 mg/dL (0.2-1.3); Blood Urea Nitrogen 24 mg/dL (9-20); Calcium 7.7 mg/dL (8.4-10.2); Carbon Dioxide 35 mmol/L (22-30); Chloride 98 mmol/L (98-107); Estimated CRCL calculation 61 ml/min; Estimated Glomerular Filt Rate > 60; Glucose 81 mg/dL (65-110); Magnesium 1.6 mg/dL (1.6-2.3); Potassium 3.5 mmol/L (3.4-5.0); Sodium 132 mmol/L (137-145)
[2022-09-18] MEDS: PIPERACILLN/TAZ 3.375GM/NS50ML 3.375 GM/50 ML BAG IVPB ×4 (06:14→23:55)
[2022-09-18] MEDS: ALBUTEROL SULFATE NEB 2.5 MG/3 ML INH INHALATION ×3 (07:15→21:04)
[2022-09-18] MEDS: IPRATROPIUM BR 0.02% INH SOLN 0.5 MG/2.5 ML VIAL INHALATION ×3 (07:15→21:04)
[2022-09-18] MEDS: METOPROLOL TARTRATE 6.25 MG TABLET PO ×2 (09:35→20:11)
[2022-09-18] MEDS: SODIUM CHLORIDE 500 MG TABLET PO ×2 (09:38→18:25)
--- NOTE | 2022-09-18 13:08 | PCOTNOTE ---
Attempted to see patient this pm, however patient refused stating, Not today! Pt reported breathing issues last two days with getting up and today, I got really light headed. Educated patient on importance of participating in therapy to help get him stronger while seeing how his body responds by monitoring his vitals. Pt has refused two days in a row now and explained to patient that therapy will discharge if he continues to refuse. Patient understood and stated he will try to participate over the weekend if he's feeling better.
--- NOTE | 2022-09-18 16:05 | PM.IMPN ---
Progress Note: A&P Assessment and Plan (1) Sepsis: Code(s): A41.9 - Sepsis, unspecified organism Status: Acute Assessment and Plan: Patient was afebrile on arrival but does technically meet sepsis criteria with tachycardia, tachypnea, leukocytosis, and elevated lactic acid level in the setting of pneumonia. He received IV fluids in the ED with normalization of his lactic acid level. Blood cultures have been obtained. He was started on Zosyn for possible aspiration pneumonia given reports of dysphagia in addition to vancomycin given findings of right parotiditis. He was negative for COVID and influenza. Sputum to be attempted for culture. Check urinary antigens which is pending. Currently on vancomycin and Zosyn Will stop vancomycin. MRSA negative (2) Hypoxia: Code(s): R09.02 - Hypoxemia Status: Acute Assessment and Plan: The patient presented to the emergency department via EMS for shortness of breath. He was hypoxic on EMS arrival and he is currently on 2 L nasal cannula maintaining his SpO2 in the mid to upper 90s. CT of the chest shows pneumomediastinum small right hydro pneumothorax. He is scattered bilateral nodular and patchy SPEP air space opacities probably pneumonia. Does have dysphagia noted by speech therapy today. He did penetrate on thin liquids so he was switched to a minced and moist diet with mildly thickened liquids. Continue Zosyn for possible aspiration pneumonia. Wean oxygen as tolerated. Continue nebulizer treatments. Hypoxemia worsened today was taken off oxygen 09/16/2022. Continue bronchodilators and antibiotics. Chest x-ray stable findings 09/17/2022 (3) Dysphagia: Code(s): R13.10 - Dysphagia, unspecified Status: Acute Assessment and Plan: As above. Speech therapy to continue to follow. (4) Pneumonia: Code(s): J18.9 - Pneumonia, unspecified organism Status: Acute Assessment and Plan: As above. Continue IV antibiotics. Continue nebulizer treatments. (5) Parotitis: Code(s): K11.20 - Sialoadenitis, unspecified Status: Acute Assessment and Plan: Overall symptoms are better with antibiotics. Recommend lemon drops. (6) Atrial tachycardia: Code(s): I47.1 - Supraventricular tachycardia Status: Acute Assessment and Plan: EKG on admission showed atrial flutter/tachycardia with a heart rate of 149. EKG reviewed personally. Patient has visible P-waves and does not appear to be flutter. Suspect this was sinus tachycardia. Continue to monitor on telemetry. Recent TSH was 5.5. Added beta-ward which he tolerated well. (7) Colon wall thickening: Code(s): K63.9 - Disease of intestine, unspecified Status: Acute Assessment and Plan: CT scan does show an 8 cm segment of wall thicken the distal sigmoid colon consistent with either focal colitis or potentially neoplasm. Will defer further evaluation at this time until patient is more stable. CEA is normal. stool guaiac test is negative (8) Hydropneumothorax: Code(s): J94.8 - Other specified pleural conditions Status: Acute Assessment and Plan: Regarding the pneumomediastinum and hydrothorax, these are small and are being watched closely by General surgery who does not feel that a chest tube is indicated at this juncture. Oxygen will be weaned as tolerated. Follow (9) Failure to thrive: Status: Acute Assessment and Plan: Chronic issue. Encourage oral intake with the above diet changes. (10) Chronic hyponatremia: Code(s): E87.1 - Hypo-osmolality and hyponatremia Status: Acute Assessment and Plan: Sodium 132 today. Continue sodium tablets. Continue to follow. Subjective Date/time seen: 09/18/22 16:05 Interval history: 71yo male with HTN, chronic hyponatremia and emphysema her for shortness of breath. He reports he is feeling better h
[2022-09-19] VITALS (19 sets, daily range): BP systolic 97–110; BP diastolic 54–63; PULSE 70–101; RESP 18–28; TEMP 36.2–36.6; O2SAT 94–99
[2022-09-19] MEDS: IPRATROPIUM BR 0.02% INH SOLN 0.5 MG/2.5 ML VIAL INHALATION ×4 (01:22→20:02)
[2022-09-19] MEDS: ALBUTEROL SULFATE NEB 2.5 MG/3 ML INH INHALATION ×4 (01:22→20:02)
[2022-09-19 02:46] LABS: Pneumococcal Antigen Urine Not Detected (Not Detected)
[2022-09-19 04:43] LABS: Basophils Percent Auto 0.3 % (0.2-1.2); Eosinophils Absolute Auto 0.4 K/mm3 (0-0.3); Eosinophils Percent Auto 5.1 % (0-4.4); Hematocrit 30.7 % (42.0-52.0); Hemoglobin 9.5 g/dL (14.0-18.0); Immature Granulocyte Absolute 0.03 K/mm3 (0.00-0.031); Immature Granulocyte Percent A 0.4 % (0-0.5); Lymphocytes Absolute Auto 1.33 K/mm3 (0.9-3.2); Lymphocytes Percent Auto 18.4 % (18.3-44.2); Mean Corpuscular HGB Conc 30.9 g/dl (32-36); Mean Corpuscular Volume 96.8 fl (80-100); Monocytes Absolute Auto 0.5 K/mm3 (0.1-0.6); Monocytes Percent Auto 7.4 % (2.6-8.5); Neutrophils Absolute Auto 4.9 K/mm3 (1.3-6.7); Neutrophils Percent Auto 68.4 % (45.5-73.1); Platelet Count Result 154 k/mm3 (150-375); Red Blood Count 3.17 M/mm3 (4.6-6.20); Red Cell Distribution Width 15.9 % (11.5-14.5); White Blood Count 7.2 K/mm3 (4.5-10.0)
[2022-09-19 04:54] LABS: Alanine Aminotransferase 17 U/L (6-50); Albumin Level 2.7 g/dL (3.5-5.1); Alkaline Phosphatase 83 U/L (38-126); Anion Gap 1 mmol/L (8-16); Aspartate Amino Transferase 47 U/L (17-59); Bilirubin,Total 0.6 mg/dL (0.2-1.3); Blood Urea Nitrogen 25 mg/dL (9-20); Calcium 7.9 mg/dL (8.4-10.2); Carbon Dioxide 35 mmol/L (22-30); Chloride 97 mmol/L (98-107); Estimated CRCL calculation 69 ml/min; Estimated Glomerular Filt Rate > 60; Glucose 74 mg/dL (65-110); Magnesium 1.8 mg/dL (1.6-2.3); Potassium 3.5 mmol/L (3.4-5.0); Sodium 133 mmol/L (137-145)
[2022-09-19] MEDS: PIPERACILLN/TAZ 3.375GM/NS50ML 3.375 GM/50 ML BAG IVPB ×2 (05:33→13:02)
[2022-09-19] MEDS: SODIUM CHLORIDE 500 MG TABLET PO ×2 (08:24→17:58)
[2022-09-19] MEDS: METOPROLOL TARTRATE 6.25 MG TABLET PO ×2 (08:24→21:08)
--- NOTE | 2022-09-19 15:29 | PM.IMPN ---
Progress Note: A&P Assessment and Plan (1) Sepsis: Code(s): A41.9 - Sepsis, unspecified organism Status: Acute Assessment and Plan: Patient was afebrile on arrival but does technically meet sepsis criteria with tachycardia, tachypnea, leukocytosis, and elevated lactic acid level in the setting of pneumonia. He received IV fluids in the ED with normalization of his lactic acid level. Blood cultures have been obtained. He was started on Zosyn for possible aspiration pneumonia given reports of dysphagia in addition to vancomycin given findings of right parotiditis. He was negative for COVID and influenza. Sputum to be attempted for culture. Check urinary antigens which is pending. Currently on vancomycin and Zosyn Will stop vancomycin. MRSA negative. Will switch his Zosyn to oral (2) Hypoxia: Code(s): R09.02 - Hypoxemia Status: Acute Assessment and Plan: The patient presented to the emergency department via EMS for shortness of breath. He was hypoxic on EMS arrival and he is currently on 2 L nasal cannula maintaining his SpO2 in the mid to upper 90s. CT of the chest shows pneumomediastinum small right hydro pneumothorax. He is scattered bilateral nodular and patchy SPEP air space opacities probably pneumonia. Does have dysphagia noted by speech therapy today. He did penetrate on thin liquids so he was switched to a minced and moist diet with mildly thickened liquids. Continue Zosyn for possible aspiration pneumonia. Wean oxygen as tolerated. Continue nebulizer treatments. Hypoxemia worsened today was taken off oxygen 09/16/2022. Continue bronchodilators and antibiotics. Chest x-ray stable findings 09/17/2022 (3) Dysphagia: Code(s): R13.10 - Dysphagia, unspecified Status: Acute Assessment and Plan: As above. Speech therapy to continue to follow. (4) Pneumonia: Code(s): J18.9 - Pneumonia, unspecified organism Status: Acute Assessment and Plan: As above. Continue IV antibiotics. Continue nebulizer treatments. (5) Parotitis: Code(s): K11.20 - Sialoadenitis, unspecified Status: Acute Assessment and Plan: Overall symptoms are better with antibiotics. Recommend lemon drops. (6) Atrial tachycardia: Code(s): I47.1 - Supraventricular tachycardia Status: Acute Assessment and Plan: EKG on admission showed atrial flutter/tachycardia with a heart rate of 149. EKG reviewed personally. Patient has visible P-waves and does not appear to be flutter. Suspect this was sinus tachycardia. Continue to monitor on telemetry. Recent TSH was 5.5. Added beta-ward which he tolerated well. (7) Colon wall thickening: Code(s): K63.9 - Disease of intestine, unspecified Status: Acute Assessment and Plan: CT scan does show an 8 cm segment of wall thicken the distal sigmoid colon consistent with either focal colitis or potentially neoplasm. Will defer further evaluation at this time until patient is more stable. CEA is normal. stool guaiac test is negative (8) Hydropneumothorax: Code(s): J94.8 - Other specified pleural conditions Status: Acute Assessment and Plan: Regarding the pneumomediastinum and hydrothorax, these are small and are being watched closely by General surgery who does not feel that a chest tube is indicated at this juncture. Oxygen will be weaned as tolerated. Follow (9) Failure to thrive: Status: Acute Assessment and Plan: Chronic issue. Encourage oral intake with the above diet changes. (10) Chronic hyponatremia: Code(s): E87.1 - Hypo-osmolality and hyponatremia Status: Acute Assessment and Plan: Sodium 132 today. Continue sodium tablets. Continue to follow. Subjective Date/time seen: 09/19/22 15:29 Interval history: 71yo male with HTN, chronic hyponatremia and emphysema her for shortness of breath. H
--- NOTE | 2022-09-19 19:32 | PC.NURSE ---
This patient, Gunner Casillas, was transferred to [facility] on 09/19/22 at 193. Personal belongings sent with patient. Report given to 1800. Appropri documentation sent with patient.
[2022-09-19] MEDS: AMOXICILLIN/CLAVULANATE K 875-125 MG TAB 1 TABLET PO (21:08)
[2022-09-19] MEDS: ACETAMINOPHEN 325 MG TABLET 650 MG PO (21:09)
[2022-09-19 21:10] LABS: Mycoplasma IgM Antibody Titer 189 U/mL (<770)
[2022-09-20] VITALS (19 sets, daily range): BP systolic 97–129; BP diastolic 53–64; PULSE 79–110; RESP 18–26; TEMP 35.8–36.6; O2SAT 95–100
[2022-09-20] MEDS: IPRATROPIUM BR 0.02% INH SOLN 0.5 MG/2.5 ML VIAL INHALATION ×3 (01:55→21:23)
[2022-09-20] MEDS: ALBUTEROL SULFATE NEB 2.5 MG/3 ML INH INHALATION ×3 (01:55→21:23)
--- NOTE | 2022-09-20 03:05 | PC.NURSE ---
Daylight Savings Time For Daylight Savings Time Ending in the Fall - Clocks are moved back. For Daylight Savings Time Beginning in the Spring - Clocks are moved ahead. For [facility], the time of change occurs at 0200 hrs. Time is taken from the data steward. This entry on the patient's chart recognizes the change in time reflected during documentation. Example: 2 entries for vital signs may be charted for 0200 hrs.
--- NOTE | 2022-09-20 05:53 | PC.NURSE ---
Pt alert this area cleaner, forgetful, cooperative. Poor po intake- thicken to liquids. Oral care provided- pt not happy about oral care. Noted many teeth are black- brown. Speech garbled, at times difficult to understand.2L NC lungs coarse. Pt will not perform IS without staff handing it to him and encouraging him to do so. HOB elevated Pt stiff, cannot turn on own. Makes very little change in position . BP low. Multiple skin breakdown with cream to buttocks provided, mepilex to multiple areas. C/o buttock pain x1 -given tylenol. Turn reposition q2 waffle boots on, not scd's. Incontinent of urine, but will deny. No stool this shift. Discussed the plan of care- pt aware of placement after d/c, pt states for rehab . Lives with son Chest xray done @ 0530.
[2022-09-20 06:54] LABS: Basophils Percent Auto 0.3 % (0.2-1.2); Eosinophils Absolute Auto 0.4 K/mm3 (0-0.3); Eosinophils Percent Auto 5.6 % (0-4.4); Hematocrit 30.8 % (42.0-52.0); Hemoglobin 9.6 g/dL (14.0-18.0); Immature Granulocyte Absolute 0.03 K/mm3 (0.00-0.031); Immature Granulocyte Percent A 0.4 % (0-0.5); Lymphocytes Absolute Auto 1.51 K/mm3 (0.9-3.2); Lymphocytes Percent Auto 20.8 % (18.3-44.2); Mean Corpuscular HGB Conc 31.2 g/dl (32-36); Mean Corpuscular Hemoglobin 29.5 pg (26-34); Mean Corpuscular Volume 94.8 fl (80-100); Mean Platelet Volume 8.8 fl (7.4-10.4); Monocytes Absolute Auto 0.4 K/mm3 (0.1-0.6); Monocytes Percent Auto 5.2 % (2.6-8.5); Neutrophils Absolute Auto 4.9 K/mm3 (1.3-6.7); Neutrophils Percent Auto 67.7 % (45.5-73.1); Platelet Count Result 142 k/mm3 (150-375); Red Blood Count 3.25 M/mm3 (4.6-6.20); Red Cell Distribution Width 15.6 % (11.5-14.5); White Blood Count 7.3 K/mm3 (4.5-10.0)
[2022-09-20 07:13] LABS: Alanine Aminotransferase 22 U/L (6-50); Albumin Level 2.5 g/dL (3.5-5.1); Alkaline Phosphatase 86 U/L (38-126); Anion Gap 2 mmol/L (8-16); Aspartate Amino Transferase 63 U/L (17-59); Bilirubin,Total 0.5 mg/dL (0.2-1.3); Blood Urea Nitrogen 18 mg/dL (9-20); Calcium 7.8 mg/dL (8.4-10.2); Carbon Dioxide 37 mmol/L (22-30); Chloride 98 mmol/L (98-107); Estimated CRCL calculation 62 ml/min; Estimated Glomerular Filt Rate > 60; Glucose 66 mg/dL (65-110); Magnesium 1.9 mg/dL (1.6-2.3); Potassium 3.4 mmol/L (3.4-5.0); Sodium 137 mmol/L (137-145)
[2022-09-20] MEDS: METOPROLOL TARTRATE 6.25 MG TABLET PO ×2 (08:46→21:42)
[2022-09-20] MEDS: SODIUM CHLORIDE 500 MG TABLET PO ×2 (08:46→16:54)
[2022-09-20] MEDS: AMOXICILLIN/CLAVULANATE K 875-125 MG TAB 1 TABLET PO ×2 (08:46→21:42)
--- NOTE | 2022-09-20 10:12 | PM.IMPN ---
Progress Note: A&P Assessment and Plan (1) Sepsis: Code(s): A41.9 - Sepsis, unspecified organism Status: Acute Assessment and Plan: Patient was afebrile on arrival but does technically meet sepsis criteria with tachycardia, tachypnea, leukocytosis, and elevated lactic acid level in the setting of pneumonia. He received IV fluids in the ED with normalization of his lactic acid level. Blood cultures have been obtained. He was started on Zosyn for possible aspiration pneumonia given reports of dysphagia in addition to vancomycin given findings of right parotiditis. He was negative for COVID and influenza. Sputum to be attempted for culture. Check urinary antigens which is pending. Currently on vancomycin and Zosyn Will stop vancomycin. MRSA negative. Switched his Zosyn to oral Augmentin. (2) Hypoxia: Code(s): R09.02 - Hypoxemia Status: Acute Assessment and Plan: The patient presented to the emergency department via EMS for shortness of breath. He was hypoxic on EMS arrival and he is currently on 2 L nasal cannula maintaining his SpO2 in the mid to upper 90s. CT of the chest shows pneumomediastinum small right hydro pneumothorax. He is scattered bilateral nodular and patchy SPEP air space opacities probably pneumonia. Does have dysphagia noted by speech therapy today. He did penetrate on thin liquids so he was switched to a minced and moist diet with mildly thickened liquids. Continue Zosyn for possible aspiration pneumonia. Wean oxygen as tolerated. Continue nebulizer treatments. Hypoxemia worsened today was taken off oxygen 09/16/2022. Continue bronchodilators and antibiotics. Chest x-ray stable findings 09/17/2022, 09/20/2022 (3) Dysphagia: Code(s): R13.10 - Dysphagia, unspecified Status: Acute Assessment and Plan: As above. Speech therapy to continue to follow. (4) Pneumonia: Code(s): J18.9 - Pneumonia, unspecified organism Status: Acute Assessment and Plan: As above. Continue oral antibiotics. Continue nebulizer treatments. (5) Parotitis: Code(s): K11.20 - Sialoadenitis, unspecified Status: Acute Assessment and Plan: Overall symptoms are better with antibiotics. Recommend lemon drops. (6) Atrial tachycardia: Code(s): I47.1 - Supraventricular tachycardia Status: Acute Assessment and Plan: EKG on admission showed atrial flutter/tachycardia with a heart rate of 149. EKG reviewed personally. Patient has visible P-waves and does not appear to be flutter. Suspect this was sinus tachycardia. Continue to monitor on telemetry. Recent TSH was 5.5. Added beta-ward which he tolerated well. (7) Colon wall thickening: Code(s): K63.9 - Disease of intestine, unspecified Status: Acute Assessment and Plan: CT scan does show an 8 cm segment of wall thicken the distal sigmoid colon consistent with either focal colitis or potentially neoplasm. Will defer further evaluation at this time until patient is more stable. CEA is normal. stool guaiac test is negative (8) Hydropneumothorax: Code(s): J94.8 - Other specified pleural conditions Status: Acute Assessment and Plan: Regarding the pneumomediastinum and hydrothorax, these are small and are being watched closely by General surgery who does not feel that a chest tube is indicated at this juncture. Oxygen will be weaned as tolerated. Follow (9) Failure to thrive: Status: Acute Assessment and Plan: Chronic issue. Encourage oral intake with the above diet changes. (10) Chronic hyponatremia: Code(s): E87.1 - Hypo-osmolality and hyponatremia Status: Acute Assessment and Plan: Sodium stable Continue sodium tablets. Continue to follow. Plan Disposition need SNF placement. Subjective Date/time seen: 09/20/22 10:12 Interval history: 71yo male with HTN, chronic hyp
[2022-09-21] VITALS (20 sets, daily range): BP systolic 108–117; BP diastolic 52–72; PULSE 73–114; RESP 18–24; TEMP 35.7–36.3; O2SAT 92–98
[2022-09-21] MEDS: IPRATROPIUM BR 0.02% INH SOLN 0.5 MG/2.5 ML VIAL INHALATION ×4 (03:28→20:52)
[2022-09-21] MEDS: ALBUTEROL SULFATE NEB 2.5 MG/3 ML INH INHALATION ×4 (03:29→20:52)
[2022-09-21 09:07] LABS: Basophils Percent Auto 0.4 % (0.2-1.2); Eosinophils Absolute Auto 0.4 K/mm3 (0-0.3); Eosinophils Percent Auto 5.4 % (0-4.4); Hematocrit 31.5 % (42.0-52.0); Hemoglobin 9.8 g/dL (14.0-18.0); Immature Granulocyte Absolute 0.04 K/mm3 (0.00-0.031); Immature Granulocyte Percent A 0.5 % (0-0.5); Lymphocytes Absolute Auto 1.59 K/mm3 (0.9-3.2); Lymphocytes Percent Auto 20.4 % (18.3-44.2); Mean Corpuscular HGB Conc 31.1 g/dl (32-36); Mean Corpuscular Hemoglobin 29.9 pg (26-34); Monocytes Absolute Auto 0.4 K/mm3 (0.1-0.6); Neutrophils Absolute Auto 5.3 K/mm3 (1.3-6.7); Neutrophils Percent Auto 68.3 % (45.5-73.1); Platelet Count Result 154 k/mm3 (150-375); Red Blood Count 3.28 M/mm3 (4.6-6.20); Red Cell Distribution Width 15.6 % (11.5-14.5); White Blood Count 7.8 K/mm3 (4.5-10.0)
[2022-09-21 09:14] LABS: Alanine Aminotransferase 21 U/L (6-50); Albumin Level 2.9 g/dL (3.5-5.1); Alkaline Phosphatase 95 U/L (38-126); Anion Gap 3 mmol/L (8-16); Aspartate Amino Transferase 55 U/L (17-59); Bilirubin,Total 0.6 mg/dL (0.2-1.3); Blood Urea Nitrogen 15 mg/dL (9-20); Calcium 8.2 mg/dL (8.4-10.2); Carbon Dioxide 36 mmol/L (22-30); Chloride 93 mmol/L (98-107); Estimated CRCL calculation 79 ml/min; Estimated Glomerular Filt Rate > 60; Glucose 68 mg/dL (65-110); Magnesium 1.9 mg/dL (1.6-2.3); Potassium 3.8 mmol/L (3.4-5.0); Sodium 132 mmol/L (137-145)
[2022-09-21] MEDS: AMOXICILLIN/CLAVULANATE K 875-125 MG TAB 1 TABLET PO ×2 (09:20→21:41)
[2022-09-21] MEDS: METOPROLOL TARTRATE 6.25 MG TABLET PO ×2 (09:20→21:41)
[2022-09-21] MEDS: SODIUM CHLORIDE 500 MG TABLET PO ×2 (09:20→16:50)
--- NOTE | 2022-09-21 15:09 | PCPTNOTE ---
Patient refused treatment this session. Patient reported he did not have a good night last night and feels he is unable to do anything in therapy.
--- NOTE | 2022-09-21 15:52 | PM.IMPN ---
Progress Note: A&P Assessment and Plan (1) Sepsis: Code(s): A41.9 - Sepsis, unspecified organism Status: Acute Assessment and Plan: Patient was afebrile on arrival but does technically meet sepsis criteria with tachycardia, tachypnea, leukocytosis, and elevated lactic acid level in the setting of pneumonia. He received IV fluids in the ED with normalization of his lactic acid level. Blood cultures have been obtained. He was started on Zosyn for possible aspiration pneumonia given reports of dysphagia in addition to vancomycin given findings of right parotiditis. He was negative for COVID and influenza. Sputum to be attempted for culture. Check urinary antigens which is pending. Currently on vancomycin and Zosyn Will stop vancomycin. MRSA negative. Switched his Zosyn to oral Augmentin. 09/21/2022:interval history: patient with pneumonia suspect aspiration, repeat chest x-ray on 09/20/2022 No overnight events. Remains stable oxygen mild. Shortness of breath on exertion. Frail looking. No leg swelling. Reports minimal cough weak cough. patient states he was not able to sleep last night will give patient melatonin, will continue present management and monitor (2) Hypoxia: Code(s): R09.02 - Hypoxemia Status: Acute Assessment and Plan: The patient presented to the emergency department via EMS for shortness of breath. He was hypoxic on EMS arrival and he is currently on 2 L nasal cannula maintaining his SpO2 in the mid to upper 90s. CT of the chest shows pneumomediastinum small right hydro pneumothorax. He is scattered bilateral nodular and patchy SPEP air space opacities probably pneumonia. Does have dysphagia noted by speech therapy today. He did penetrate on thin liquids so he was switched to a minced and moist diet with mildly thickened liquids. Continue Zosyn for possible aspiration pneumonia. Wean oxygen as tolerated. Continue nebulizer treatments. Hypoxemia worsened today was taken off oxygen 09/16/2022. Continue bronchodilators and antibiotics. Chest x-ray stable findings 09/17/2022, 09/20/2022 (3) Dysphagia: Code(s): R13.10 - Dysphagia, unspecified Status: Acute Assessment and Plan: As above. Speech therapy to continue to follow. (4) Pneumonia: Code(s): J18.9 - Pneumonia, unspecified organism Status: Acute Assessment and Plan: As above. Continue oral antibiotics. Continue nebulizer treatments. (5) Parotitis: Code(s): K11.20 - Sialoadenitis, unspecified Status: Acute Assessment and Plan: Overall symptoms are better with antibiotics. Recommend lemon drops. (6) Atrial tachycardia: Code(s): I47.1 - Supraventricular tachycardia Status: Acute Assessment and Plan: EKG on admission showed atrial flutter/tachycardia with a heart rate of 149. EKG reviewed personally. Patient has visible P-waves and does not appear to be flutter. Suspect this was sinus tachycardia. Continue to monitor on telemetry. Recent TSH was 5.5. Added beta-ward which he tolerated well. (7) Colon wall thickening: Code(s): K63.9 - Disease of intestine, unspecified Status: Acute Assessment and Plan: CT scan does show an 8 cm segment of wall thicken the distal sigmoid colon consistent with either focal colitis or potentially neoplasm. Will defer further evaluation at this time until patient is more stable. CEA is normal. stool guaiac test is negative (8) Hydropneumothorax: Code(s): J94.8 - Other specified pleural conditions Status: Acute Assessment and Plan: Regarding the pneumomediastinum and hydrothorax, these are small and are being watched closely by General surgery who does not feel that a chest tube is indicated at this juncture. Oxygen will be weaned as tolerated. Follow (9) Failure to thrive: Status: Acute Assessment and Plan: Chronic issue. Encourage or
[2022-09-21] MEDS: ACETAMINOPHEN 325 MG TABLET 650 MG PO (21:49)
[2022-09-22] VITALS (17 sets, daily range): BP systolic 104–140; BP diastolic 60–61; PULSE 82–122; RESP 16–22; TEMP 35.9–36.4; O2SAT 91–100
[2022-09-22] MEDS: ALBUTEROL SULFATE NEB 2.5 MG/3 ML INH INHALATION ×4 (04:00→20:30)
[2022-09-22] MEDS: IPRATROPIUM BR 0.02% INH SOLN 0.5 MG/2.5 ML VIAL INHALATION ×4 (04:00→20:32)
--- NOTE | 2022-09-22 04:01 | PCRCNOTE ---
Window of time for administration has passed. See next scheduled administration.
[2022-09-22] MEDS: METOPROLOL TARTRATE 6.25 MG TABLET PO ×2 (08:53→21:04)
[2022-09-22] MEDS: SODIUM CHLORIDE 500 MG TABLET PO ×2 (08:53→16:44)
[2022-09-22] MEDS: AMOXICILLIN/CLAVULANATE K 875-125 MG TAB 1 TABLET PO ×2 (08:53→21:03)
[2022-09-22 09:58] LABS: Hematocrit 31.9 % (42.0-52.0); Hemoglobin 9.7 g/dL (14.0-18.0); Mean Corpuscular HGB Conc 30.4 g/dl (32-36); Mean Corpuscular Hemoglobin 29.8 pg (26-34); Mean Corpuscular Volume 98.2 fl (80-100); Mean Platelet Volume 8.7 fl (7.4-10.4); Platelet Count Result 191 k/mm3 (150-375); Red Blood Count 3.25 M/mm3 (4.6-6.20); Red Cell Distribution Width 15.3 % (11.5-14.5); White Blood Count 10.7 K/mm3 (4.5-10.0)
[2022-09-22 10:12] LABS: Anion Gap 5 mmol/L (8-16); Blood Urea Nitrogen 15 mg/dL (9-20); Calcium 7.9 mg/dL (8.4-10.2); Carbon Dioxide 39 mmol/L (22-30); Chloride 91 mmol/L (98-107); Estimated CRCL calculation 67 ml/min; Estimated Glomerular Filt Rate > 60; Glucose 69 mg/dL (65-110); Magnesium 1.9 mg/dL (1.6-2.3); Potassium 4.3 mmol/L (3.4-5.0); Sodium 135 mmol/L (137-145)
[2022-09-22] MEDS: ONDANSETRON INJ 4 MG/2 ML VIAL IV PUSH ×2 (12:08→16:44)
--- NOTE | 2022-09-22 15:20 | PCNFU ---
Nutrition Follow-Up Complete: Severe protein calorie malnutrition related to inadequate protein energy intake with increased protein energy needs in the setting of chronic diesease as evidenced by poor po intake over 1 month, -15% wt loss in 1 month, and severe subcutaneous fat loss and muscle wasting as noted in NFPE. Goal:PO intake greater than 50% of meals and supplements. Pt slowly progressing towards goal. Pt current nutrition is Heart Healthy/Minced and Moist, Level 5 with Mild Thick liquids, Level 2. Nutrition recommendation: Continue with current plan of care. Encourage po intake of meals and supplements Last recorded weight is 56.1 kg - stable Bowel Motility: no recorded BM Labs Reviewed: Hgb:9.7, HCT:31.9, Alb:2.9, NA:135 Meds Noted: zofran Skin: Left hip DTPI, Right hip DTPI, L/R ischium DTPI Additional Notes: Pt continues on a level 5 minced and moist, level 2 thick liquids diet. Intake remains poor of meals at 10% average, drinks supplements and likes chocolate milk. PO intake encouraged. Agree with diet supplement of George for wound healing providing 90 kcals and 2.5 gms protein and Ensure compact TID providing additional 220 kcals and 9 gms protein. Pt may benefit from an appetite stimulant to help increase po intake. Monitor intake, wt, labs. Follow up in 5 days.
--- NOTE | 2022-09-22 15:28 | PM.IMPN ---
Progress Note: A&P Assessment and Plan (1) Sepsis: Code(s): A41.9 - Sepsis, unspecified organism Status: Acute Assessment and Plan: Patient was afebrile on arrival but does technically meet sepsis criteria with tachycardia, tachypnea, leukocytosis, and elevated lactic acid level in the setting of pneumonia. He received IV fluids in the ED with normalization of his lactic acid level. Blood cultures have been obtained. He was started on Zosyn for possible aspiration pneumonia given reports of dysphagia in addition to vancomycin given findings of right parotiditis. He was negative for COVID and influenza. Sputum to be attempted for culture. Check urinary antigens which is pending. Currently on vancomycin and Zosyn Will stop vancomycin. MRSA negative. Switched his Zosyn to oral Augmentin. 09/22/2022:interval history: patient with pneumonia suspect aspiration, repeat chest x-ray on 09/20/2022 No overnight events. Remains stable oxygen mild. Shortness of breath on exertion. Frail looking. No leg swelling. Reports minimal cough weak cough. on 09/21 patient states he was not able to sleep night before and gave him melatonin, he was able to sleep last night, he is clinically ready to be discharged to rehab, pending insurance authorization, will continue present management and monitor (2) Hypoxia: Code(s): R09.02 - Hypoxemia Status: Acute Assessment and Plan: The patient presented to the emergency department via EMS for shortness of breath. He was hypoxic on EMS arrival and he is currently on 2 L nasal cannula maintaining his SpO2 in the mid to upper 90s. CT of the chest shows pneumomediastinum small right hydro pneumothorax. He is scattered bilateral nodular and patchy SPEP air space opacities probably pneumonia. Does have dysphagia noted by speech therapy today. He did penetrate on thin liquids so he was switched to a minced and moist diet with mildly thickened liquids. Continue Zosyn for possible aspiration pneumonia. Wean oxygen as tolerated. Continue nebulizer treatments. Hypoxemia worsened today was taken off oxygen 09/16/2022. Continue bronchodilators and antibiotics. Chest x-ray stable findings 09/17/2022, 09/20/2022 (3) Dysphagia: Code(s): R13.10 - Dysphagia, unspecified Status: Acute Assessment and Plan: As above. Speech therapy to continue to follow. (4) Pneumonia: Code(s): J18.9 - Pneumonia, unspecified organism Status: Acute Assessment and Plan: As above. Continue oral antibiotics. Continue nebulizer treatments. (5) Parotitis: Code(s): K11.20 - Sialoadenitis, unspecified Status: Acute Assessment and Plan: Overall symptoms are better with antibiotics. Recommend lemon drops. (6) Atrial tachycardia: Code(s): I47.1 - Supraventricular tachycardia Status: Acute Assessment and Plan: EKG on admission showed atrial flutter/tachycardia with a heart rate of 149. EKG reviewed personally. Patient has visible P-waves and does not appear to be flutter. Suspect this was sinus tachycardia. Continue to monitor on telemetry. Recent TSH was 5.5. Added beta-ward which he tolerated well. (7) Colon wall thickening: Code(s): K63.9 - Disease of intestine, unspecified Status: Acute Assessment and Plan: CT scan does show an 8 cm segment of wall thicken the distal sigmoid colon consistent with either focal colitis or potentially neoplasm. Will defer further evaluation at this time until patient is more stable. CEA is normal. stool guaiac test is negative (8) Hydropneumothorax: Code(s): J94.8 - Other specified pleural conditions Status: Acute Assessment and Plan: Regarding the pneumomediastinum and hydrothorax, these are small and are being watched closely by General surgery who does not feel that a chest tube is indicated at this juncture. Oxygen will be weaned as to
[2022-09-23] VITALS (18 sets, daily range): BP systolic 81–109; BP diastolic 55–61; PULSE 100–120; RESP 16–22; TEMP 35.9–36.2; O2SAT 92–100
[2022-09-23] MEDS: IPRATROPIUM BR 0.02% INH SOLN 0.5 MG/2.5 ML VIAL INHALATION ×4 (03:22→21:06)
[2022-09-23] MEDS: ALBUTEROL SULFATE NEB 2.5 MG/3 ML INH INHALATION ×4 (03:24→21:06)
[2022-09-23] MEDS: AMOXICILLIN/CLAVULANATE K 875-125 MG TAB 1 TABLET PO ×2 (08:52→22:12)
[2022-09-23] MEDS: METOPROLOL TARTRATE 6.25 MG TABLET PO (08:52)
[2022-09-23] MEDS: SODIUM CHLORIDE 500 MG TABLET PO (08:53)
--- NOTE | 2022-09-23 15:07 | P.PNIM_ITS ---
Progress Note: A&P Assessment and Plan (1) Sepsis: Code(s): A41.9 - Sepsis, unspecified organism Status: Acute Assessment and Plan: Patient was afebrile on arrival but does technically meet sepsis criteria with tachycardia, tachypnea, leukocytosis, and elevated lactic acid level in the setting of pneumonia. He received IV fluids in the ED with normalization of his lactic acid level. Blood cultures have been obtained. He was started on Zosyn for possible aspiration pneumonia given reports of dysphagia in addition to vancomycin given findings of right parotiditis. He was negative for COVID and influenza. Sputum to be attempted for culture. Check urinary antigens which is pending. Currently on vancomycin and Zosyn Will stop vancomycin. MRSA negative. Switched his Zosyn to oral Augmentin. 09/23/2022:interval history: patient with pneumonia suspect aspiration, repeat chest x-ray on 09/20/2022 No overnight events. Remains stable oxygen mild. Shortness of breath on exertion. Frail looking. No leg swelling. Reports minimal cough weak cough. on 09/21 patient states he was not able to sleep night before and gave him melatonin, he was able to sleep last night, he is clinically ready to be discharged to rehab, pending insurance authorization, he has no new complaint, will continue present management and monitor (2) Hypoxia: Code(s): R09.02 - Hypoxemia Status: Acute Assessment and Plan: The patient presented to the emergency department via EMS for shortness of breath. He was hypoxic on EMS arrival and he is currently on 2 L nasal cannula maintaining his SpO2 in the mid to upper 90s. CT of the chest shows p neumomediastinum small right hydro pneumothorax. He is scattered bilateral nodular and patchy SPEP air space opacities probably pneumonia. Does have dysphagia noted by speech therapy today. He did penetrate on thin liquids so he was switched to a minced and moist diet with mildly thickened liquids. Continue Zosyn for possible aspiration pneumonia. Wean oxygen as tolerated. Continue nebulizer treatments. Hypoxemia worsened today was taken off oxygen 09/16/2022. Continue bronchodilators and antibiotics. Chest x-ray stable findings 09/17/2022, 09/20/2022 (3) Dysphagia: Code(s): R13.10 - Dysphagia, unspecified Status: Acute Assessment and Plan: As above. Speech therapy to continue to follow. (4) Pneumonia: Code(s): J18.9 - Pneumonia, unspecified organism Status: Acute Assessment and Plan: As above. Continue oral antibiotics. Continue nebulizer treatments. (5) Parotitis: Code(s): K11.20 - Sialoadenitis, unspecified Status: Acute Assessment and Plan: Overall symptoms are better with antibiotics. Recommend lemon drops. (6) Atrial tachycardia: Code(s): I47.1 - Supraventricular tachycardia Status: Acute Assessment and Plan: EKG on admission showed atrial flutter/tachycardia with a heart rate of 149. EKG reviewed personally. Patient has visible P-waves and does not appear to be flutter. Suspect this was sinus tachycardia. Continue to monitor on telemetry. Recent TSH was 5.5. Added beta-ward which he tolerated well. (7) Colon wall thickening: Code(s): K63.9 - Disease of intestine, unspecified Status: Acute Assessment and Plan: CT scan does show an 8 cm segment of wall thicken the distal sigmoid colon consistent with either focal colitis or potentially neoplasm. Will defer further evaluation at this time until patient is more stable. CEA is normal. stool guaiac test is negative
--- NOTE | 2022-09-23 15:35 | P.DS_ITS ---
DS: Summary Time Spent with Patient Time attestation: Total time spent providing and/or coordinating discharge services: Discharge Plan Discharge Attending physician on discharge: Roro Marshall Discharging Clinician: Roro Marshall Patient Disposition: NH Intermediate/Asst Living Activity: as tolerated Diet: heart healthy Discharge Instructions: patient to follow-up with his primary care provider as soon as possible. Patient Instructions: Antibiotic Form Stand Alone Forms: General Discharge Information Follow-up/Referrals: Rula Mancia MD [Primary Care Provider] - Discharge Medications: New levalbuterol HCl 1.25 mg/3 mL Solution For Nebulization 0.63 mg inhalation Q6HRT PRN (Reason: Wheezing) Qty: 75 0RF ipratropium bromide 0.02 % Solution 0.5 mg inhalation Q6HRT Qty: 75 0RF Continued ergocalciferol (vitamin D2) [Vitamin D2] 1,250 mcg (50,000 unit) Capsule 50,000 unit PO WEEKLY 84 Days Qty: 14 0RF sodium chloride 1,000 mg tablet,soluble 500 mg PO BID 30 Days Qty: 30 0RF Date of admission: 09/14/22 07:35 Primary Care Provider: Rula Mancia Admitting Provider: Roro Marshall Attending physician on admission: Roro Marshall Condition: Stable
[2022-09-24] VITALS (8 sets, daily range): BP systolic 101–104; BP diastolic 59–62; PULSE 61–109; RESP 14–22; TEMP 35.9; O2SAT 90–100
[2022-09-24] MEDS: ALBUTEROL SULFATE NEB 2.5 MG/3 ML INH INHALATION ×3 (03:06→13:51)
[2022-09-24] MEDS: IPRATROPIUM BR 0.02% INH SOLN 0.5 MG/2.5 ML VIAL INHALATION ×3 (03:06→13:51)
[2022-09-24] MEDS: SODIUM CHLORIDE 500 MG TABLET PO (08:53)
[2022-09-24] MEDS: AMOXICILLIN/CLAVULANATE K 875-125 MG TAB 1 TABLET PO (08:53)
[2022-09-24] MEDS: METOPROLOL TARTRATE 6.25 MG TABLET PO (08:53)
[2022-09-24] MEDS: ACETAMINOPHEN 325 MG TABLET 650 MG PO (10:39)
--- NOTE | 2022-09-24 14:25 | PCOTNOTE ---
Attempted to see Patient this afternoon. Patient's 2 sons present and verbalized, they just put him on comfort measures and will not be needing therapy services anymore. Will notify the OT/L to request discharge orders.
--- NOTE | 2022-09-24 14:50 | PM.IMPN ---
Progress Note: A&P Assessment and Plan (1) Sepsis: Code(s): A41.9 - Sepsis, unspecified organism Status: Acute Assessment and Plan: 09/24/2022:interval history: patient with pneumonia suspect aspiration, repeat chest x-ray on 09/20/2022 No overnight events. Remains stable oxygen mild. Shortness of breath on exertion. Frail looking. No leg swelling. Reports minimal cough weak cough. on 09/21 patient states he was not able to sleep night before and gave him melatonin, he was able to sleep last night, he is clinically ready to be discharged to rehab, pending insurance authorization, however later in the afternoon on 09/23 patient sons were present, they wanted him to monitor one more day and encourage patient to increase oral intake patient agreed to increase oral intake and if not may insert NGtube, however patient refused it and he still not eating, today patient is somnolent, and at times agitated and restless, after discussing with both sons and placed patient under comfort measures, will monitor overnight and patient may need hospice care. will monitor and plan. (2) Hypoxia: Code(s): R09.02 - Hypoxemia Status: Acute (3) Dysphagia: Code(s): R13.10 - Dysphagia, unspecified Status: Acute (4) Pneumonia: Code(s): J18.9 - Pneumonia, unspecified organism Status: Acute (5) Parotitis: Code(s): K11.20 - Sialoadenitis, unspecified Status: Acute (6) Atrial tachycardia: Code(s): I47.1 - Supraventricular tachycardia Status: Acute (7) Colon wall thickening: Code(s): K63.9 - Disease of intestine, unspecified Status: Acute (8) Hydropneumothorax: Code(s): J94.8 - Other specified pleural conditions Status: Acute (9) Failure to thrive: Status: Acute (10) Chronic hyponatremia: Code(s): E87.1 - Hypo-osmolality and hyponatremia Status: Acute Subjective Date/time seen: 09/24/22 14:50 Interval history: 71yo male with HTN, chronic hyponatremia and emphysema her for shortness of breath. He reports he is feeling better he has a little bit of cough and difficulty coughing out. Denies shortness of breath. 09/17/2022: Worsening hypoxia this a.m. tachycardic, sinus tachycardia with PACs on telemetry no chest pain. Placed on oxygen supplementation up to 5 L now down to 3 L. feeling better when I saw him 09/18/2022: Feels okay. Oxygen level stable. Denies any new complaints. 09/19/2022: No overnight events. Requiring 1-2 L oxygen. Shortness of breath on exertion. Denies any leg swelling. Minimal cough 09/24/2022:interval history: patient with pneumonia suspect aspiration, repeat chest x-ray on 09/20/2022 No overnight events. Remains stable oxygen mild. Shortness of breath on exertion. Frail looking. No leg swelling. Reports minimal cough weak cough. on 09/21 patient states he was not able to sleep night before and gave him melatonin, he was able to sleep last night, he is clinically ready to be discharged to rehab, pending insurance authorization, however later in the afternoon on 09/23 patient sons were present, they wanted him to monitor one more day and encourage patient to increase oral intake patient agreed to increase oral intake and if not may insert NGtube, however patient refused it and he still not eating, today patient is somnolent, and at times agitated and restless, after discussing with both sons and placed patient under comfort measures, will monitor overnight and patient may need hospice care. will monitor and plan. Review of Systems Review of Systems: All systems reviewed & are unremarkable except as noted in HPI and below Objective Data Vital Signs Vital Signs: Vital Signs - 24 hr 09/23/22 15:11 09/23/22 15:19 09/23/22 16:00 Temperature Pulse Rate 115 H 112 H 119 H Respiratory Rate 20 20 Blood Pressure Pulse Oximetry Oxygen Delivery Oxygen Flow Rate
[2022-09-24] MEDS: LORazepam INJ (*CRX) 2 MG/ML VIAL IV PUSH (15:31)
[2022-09-24] MEDS: MORPHINE SULFATE INJ (*CRX) 10 MG/ML AMP 5 MG IV PUSH (15:32)
--- NOTE | 2022-09-24 18:00 | PC.NURSE ---
Pt comfort care only. Called to the room per family. Pt without resp or heart rate. Charge nurse notified. Family to remain at bedside at present.
--- NOTE | 2022-10-09 17:32 | PM.DDS ---
Discharge Summary Date and Time Date of : 09/24/22 Time of : 17:57 Provider Pronounced By: Carolyn Vazquez RN Probable Cause of Probable Cause of : Cardiac arrest Summary Hospital Course: patient with pneumonia suspect aspiration, repeat chest x-ray on 09/20/2022 ? No overnight events.? Remains stable oxygen mild.? Shortness of breath on exertion.? Frail looking.? No leg swelling.? Reports minimal cough weak cough. on 09/21 patient states he was not able to sleep night before and gave him melatonin, he was able to sleep last night, he is clinically ready to be discharged to rehab, pending insurance authorization, however later in the afternoon on 09/23 patient sons were present, they wanted him to monitor one more day and encourage patient to increase oral intake patient agreed to increase oral intake and if not may insert NGtube, however patient refused it and he still not eating, today patient is somnolent, and at times agitated and restless, after discussing with both sons and placed patient under comfort measures, will monitor overnight and patient may need hospice care. will monitor and plan. Patient clinical symptoms for worsening I spoke with the patient's son and patient was placed on hospice and later patient Additional Data Confirmation of as documented by pronouncing clinician: Pupillary Reflex, Palpable Pulses, Response to Stimuli, Heart Tones and Breath Sounds Name of Provider Notified: Dr. Marshall Time Provider Notified: 18:34 Family Requests Autopsy: No Bale Breaker Operator Notified: Yes Date [facility] Notified of : 09/24/22 Time [facility] Notified of : 18:27
== END 2022-09-24 17:57 | disposition expired | DRG 871 ==
LOC: ANHED 07:38 → ANHIMU 08:15 → ANH3MEDSUR 09-19 17:59
PROVIDERS: Internal Medicine; Physician Assistant; Admitting Provider Family Medicine; Emergency Provider Emergency Medicine; PCP Family Medicine; Visit Provider Family Medicine
DX: A41.9 Sepsis, unspecified organism (principal); J69.0 Pneumonitis due to inhalation of food and vomit; Z68.1 Body mass index [BMI] 19.9 or less, adult; E87.1 Hypo-osmolality and hyponatremia; J94.2 Hemothorax; R13.10 Dysphagia, unspecified; R09.02 Hypoxemia; K11.20 Sialoadenitis, unspecified; K63.9 Disease of intestine, unspecified; R62.7 Adult failure to thrive; J43.9 Emphysema, unspecified; E03.9 Hypothyroidism, unspecified; I10 Essential (primary) hypertension; Z87.891 Personal history of nicotine dependence; Z20.822 Contact with and (suspected) exposure to COVID-19; Z75.1 Person awaiting admission to adequate facility elsewhere; Z51.5 Encounter for palliative care
CPT/HCPCS: 36415; 36600; 70450; 71045; 71250; 74176; 80048; 80053; 80069; 80202; 82274; 82378; 82550; 82805; 82948; 83605; 83735; 83880; 84145; 84484; 85025; 85027; 85610; 85730; 86738; 87040; 87070; 87081; 87205; 87637; 87899; 92526; 92610; 92611; 93005; 94640; 96361; 96365; 96367; 97110; 97161; 97166; 97530; 97535; 99285; A9270; J2060; J2270; J2405; J2543; J3370; J3475; J3480; J7030